=== PATIENT | male | born 1940 | race Caucasian/White ===

== ENCOUNTER → 2023-04-15 13:23 | Outpatient (BNV) | payer MEDICARE, SELFPAY | PROVIDERS: PCP Nurse Practitioner Family; Visit Provider Internal Medicine | DX: D64.9 Anemia, unspecified (principal) | CPT/HCPCS: 99203 ==

== ENCOUNTER 2023-06-23 08:32 | Outpatient (AMB) | payer MEDICARE, SELFPAY ==
[2023-06-23 08:37] VITALS: BP 160/74; PULSE 102; TEMP 36.4; O2SAT 97; BMI 35.1
--- NOTE | 2023-06-23 08:37 | MHC.OFFWIV ---
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 Patient states it is itchy and oliver also started about 4 days ago Patient Tobacco Use Status: Never used Tobacco Allergies olmesartan Allergy (Verified 06/23/23 08:37) Unknown iv contast Allergy (Uncoded 06/23/23 09:11) Rash Do you need a note to return to daycare/school/sports/work: No HPI HPI Comments History of Present Illness Details Patient presents to the walkin today with complaints of rash to torso, arms, upper thighs for last 4 days Red, itchy rash for last 4 days. has tried OTC cream without improvement Patient state last he had CT with IV contrast, rash started less than [address] Denies chest pain, shortness of breath, difficulty swallowing, swelling of lips or tongue, syncope, weakness, dizziness. Denies new medications, soap, lotions, detergent. Denies recent travel. Denies new foods. [facility] Medical History Spontaneous rupture of other tendons, right hand Type II diabetes mellitus PUD (peptic ulcer disease) Osteoarthritis Orthopnea Obesity Mixed hyperlipidemia Essential hypertension Erectile dysfunction Constipation ARF (acute renal failure) Mixed hyperlipidemia Bilateral carpal tunnel syndrome Carpal tunnel syndrome, right Cancer of prostate Left knee injury Surgical History H/O left knee surgery History of prostatectomy H/O prostatectomy Family History Brother Lung cancer Mother Diabetes Father Congestive heart failure Anginal pain Social History Household Members: None and Unknown / Unable to assess Housing: House Patient Tobacco Use Status: Never used Tobacco Current occupational status: retired Review of Systems Const All systems reviewed & are unremarkable except as noted in HPI and below Physical Exam Vital Signs: Last Vital Signs Temp 97.6 F 06/23/23 08:37 Pulse 102 H 06/23/23 08:37 BP 160/74 H 06/23/23 08:37 Pulse Ox 97 06/23/23 08:37 Oxygen Delivery Method Room Air 06/23/23 08:37 BMI result Body Mass Index 35.1 General: awake, alert, oriented. Answers questions appropriately. Fully engaged in examination. Skin: Diffuse, erythematous, macular rash noted to torso, arms, upper thighs. HEENT: Normocephalic. Hearing intact. No angioedema. Tongue midline without edema. Oral mucosa moist. Cardiac: External chest normal in appearance. +murmur Respiratory: No cough, audible wheezing or stridor. LSCTAB Abdomen: without gross distension. MS: No obvious swelling or deformities. Neurological: Oriented to person, place, time and situation. Thought process intact. No gait abnormalities appreciated. Psychiatric: Appropriate mood and affect. Good judgment and insight. Assessment & Plan Assessment & Plan (1) Allergic reaction: Code(s): T78.40XA - Allergy, unspecified, initial encounter Plan Allergic reaction to IV contrast dye administration 4 days ago Predisone 40mg po daily X 3 days. Benadryl OTC 25mg po QID as needed No angioedema, shortness of breath, chest pain, difficulty swallowing at this time, advised patient to seek emergent treatment in the ER if he develops these symptoms Follow up with pcp or at walk in if no improvement or for any new symptoms. Medications: New prednisone 40 mg (2 x 20 mg) PO DAILY 6 tabs 0RF Coding Level of Care Code New Pt Level 4 (08563) Diagnoses Allergic reaction T78.40XA
== END 2023-06-23 09:13 | disposition home or self-care (01) ==
PROVIDERS: PCP Nurse Practitioner Family; Visit Provider Registered Nurse Emergency
DX: T78.40XA Allergy, unspecified, initial encounter (principal)
CPT/HCPCS: 99204

== ENCOUNTER → 2023-09-10 10:00 | Outpatient (BNV) | payer MEDICARE, SELFPAY | PROVIDERS: PCP Nurse Practitioner Family; Visit Provider Internal Medicine Pulmonary Disease | DX: R06.2 Wheezing (principal) | CPT/HCPCS: 94060; 94727; 94729 ==

== ENCOUNTER 2023-09-10 10:14 | Outpatient (REF) | payer MEDICARE, SELFPAY ==
--- NOTE | 2023-09-10 | PFT_ITS ---
Flows: FEV1: 78 % of predicted at 1.93 L FVC: 79 % of predicted at 2.62 L FEV1/FVC: 74 % Bronchodilator response: Absent Volumes: Total lung capacity: 81 % of predicted at 4.98 L Residual volume: 89 % of predicted at 2.17 L Slow vital capacity: 80 % of predicted at 2.81 L Expiratory reserve volume: 45 % of predicted at 0.46 L Diffusion capacity: Normal Impression: No obstructive or restrictive ventilatory defect. No bronchodilator response. Decreased expiratory reserve volume suggests extrathoracic restriction likely secondary to abdominal obesity. MTDD
[2023-09-10 08:53] VITALS: PULSE 62; RESP 16; O2SAT 98
== END 2023-09-10 10:15 | disposition home or self-care (01) ==
LOC: HO.RESP 10:14
PROVIDERS: PCP Nurse Practitioner Family; Visit Provider Nurse Practitioner Family
DX: R06.2 Wheezing (principal); F17.200 Nicotine dependence, unspecified, uncomplicated
CPT/HCPCS: 94010; 94640; 94727; 94729

== ENCOUNTER 2023-09-11 09:33 | Outpatient (AMB) | payer MEDICARE, SELFPAY ==
--- NOTE | 2023-09-11 09:51 | HO.NEPHOV_ITS ---
HPI HPI Comments History of Present Illness Details 82-year-old man with a history of diabet es mellitus for more than 20 years was found to have proteinuria and hence this referral. Hakeem tells me that blood sugars have been well controlled with a recent he hemog lobin A1c of 6.5%. His blood pressure has been well controlled as well. He exercises regularly. He has lost about 50 lb over the last few years. He has a history of smoking but he has quit smoking. He had episodes of hematuria Seen by Urology and underwent cystoscopy which was unremarkable. Apparently he was told about a renal cyst. He had a CT scan with IV contrast and developed allergic reaction to the IV contrast. He had skin rash and was treated with prednisone He denies any nausea vomiting. No headache no shortness of breath no cough. No hemoptysis. No rash No polyuria polydipsia. No diarrhea constipation. All other systems were reviewed [facility] Medical History (Reviewed 06/23/23 @ 09:14 by Fabiola Becerra, [employer], [employer] MACHINE OPERATOR) Spontaneous rupture of other tendons, right hand Type II diabetes mellitus PUD (peptic ulcer disease) Osteoarthritis Orthopnea Obesity Mixed hyperlipidemia Essential hypertension Erectile dysfunction Constipation ARF (acute renal failure) Mixed hyperlipidemia Bilateral carpal tunnel syndrome Carpal tunnel syndrome, right Cancer of prostate Left knee injury Surgical History H/O left knee surgery History of prostatectomy H/O prostatectomy Family History Brother Lung cancer Mother Diabetes Father Congestive heart failure Anginal pain Social History Household Members: None and Unknown / Unable to assess Housing: House Patient Tobacco Use Status: Never used Tobacco Current occupational status: retired Vital Signs 09/11/23 09:52 Height 5 ft 6 in Weight 207 lb BMI 33.4 BP 124/54 L Blood Pressure Location Lt brachial Position Sitting Pulse 62 Pulse Source Pulse Oximeter Pulse Oximetry (%) 97 Oxygen Delivery Method Room Air Physical Exam Vital Signs: Last Vital Signs Pulse 62 09/11/23 09:52 BP 124/54 L 09/11/23 09:52 Pulse Ox 97 09/11/23 09:52 Oxygen Delivery Method Room Air 09/11/23 09:52 BMI result Body Mass Index 33.4 Const General: comfortable Nutritional Appearance: well nourished Orientation/consciousness: patient oriented x3 HEENT Head: No normal to inspection Mouth: moist mucous membranes Neck Neck: Yes supple and Yes no JVD Resp Auscultation: clear to auscultation bilaterally, no rales and rub present Cardio Jugular venous distension: no JVD Palpation: no palpable S3 and no palpable S4 Heart sounds: no rubs GI Palpation (GI): Soft to palpation and nontender Percussion: No Fluid wave present General: Yes no CVA tenderness Back/Spine/Pelvis Back: no CVA tenderness Skin General skin exam: no rashes or lesions noted Neuro General: patient oriented x3 Extrem General: No clubbing and Yes edema (Trace edema more on the left leg) Assessment & Plan Assessment & Plan (1) Proteinuria: Code(s): R80.9 - Proteinuria, unspecified Plan 82-year-old man with longstanding diabetes mellitus ,obesity and essentially normal renal function has albuminuria. Albuminuria is most likely due to underlying diabetic kidney disease. However nondiabetic causes need to be ruled out. Given the history of recent hematuria , underlying glomerular pathology should be considered. He has a history of mild anemia. Hematological workup was done recently which was unremarkable. However serum electrophoresis is not available. Blood pressure is well controlled Recommendations We will check urine protein creatinine ratio and serum electrophoresis. ( ordered) Track down renal imaging studies and urology report including cystoscopy results Continue to maintain blood pressure less than 130/80 and A1c less than 7%. Encouraged him to continue with his exercise regimen and avoid weight gain. Stay on low-sodium diet He would benefit from SGLT2 inhibitors. . Further workup will be based on the outcome of the above baseline medications I would be happy to follow him along with you. Thank you for allowing me to participate in the medical management of your patient. . Orders: Orders Protein Electrophoresis, Serum Today R80.9 - Proteinuria, unspecified Creatinine Urine Today N05.9 - Unspecified nephritic syndrome with unspecified morphologic changes, R80.9 - Proteinuria, unspecified Total Protein Urine Random Today R80.9 - Proteinuria, unspecified UA and rflx microscopic Today R80.9 - Proteinuria, unspecified Coding Level of Care Code New Pt Level 4 (56524) Diagnoses Proteinuria R80.9 Results Reviewed Results Reviewed: As of August 2023 Urine micro albumin creatinine ratio was 313. Serum creatinine 0.88 Hemoglobin 12.6 Nephrology Results: No Data to Display
[2023-09-11 09:52] VITALS: BP 124/54; PULSE 62; O2SAT 97; BMI 33.4
== END 2023-09-11 10:21 | disposition home or self-care (01) ==
PROVIDERS: PCP Nurse Practitioner Family; Referring Provider Nurse Practitioner Family; Visit Provider Internal Medicine Hypertension Specialist
DX: R80.9 Proteinuria, unspecified (principal)
CPT/HCPCS: 99204; 99214

== ENCOUNTER → 2023-09-11 09:33 | Outpatient (BNVA) | payer MEDICARE, SELFPAY | PROVIDERS: PCP Nurse Practitioner Family; Referring Provider Nurse Practitioner Family; Visit Provider Internal Medicine Hypertension Specialist | DX: R80.9 Proteinuria, unspecified (principal); N05.9 Unspecified nephritic syndrome with unspecified morphologic changes | CPT/HCPCS: 99202 ==

== ENCOUNTER 2023-10-02 09:20 | Outpatient (AMB) | payer MEDICARE, SELFPAY ==
[2023-10-02 09:52] VITALS: BP 126/60; PULSE 60; O2SAT 95; BMI 33.4
--- NOTE | 2023-10-02 09:52 | HO.NEPHOV ---
Vital Signs 10/02/23 09:52 Height 5 ft 6 in Weight 207 lb BMI 33.4 BP 126/60 Blood Pressure Location Rt brachial Position Sitting Pulse 60 Pulse Source Pulse Oximeter Pulse Oximetry (%) 95 Oxygen Delivery Method Room Air Intake Visit Reasons: Microalbuminuria/ 3 weeks fu/ LVM Electrolytic De Scaler Required: No Accompanied by: Self / Same As Patient Allergies olmesartan Allergy (Verified 10/02/23 09:58) Unknown iv contast Allergy (Uncoded 06/23/23 09:11) Rash HPI Comments Details: 82-year-old man with a history of diabetes mellitus for more than 20 years was found to have proteinuria and hence this referral. Bill tells me that blood sugars have been well controlled with a recent he hemoglobin A1c of 6.5%. His blood pressure has been well controlled as well. He exercises regularly. He has lost about 50 lb over the last few years. He has a history of smoking but he has quit smoking. He had episodes of hematuria Seen by Urology and underwent cystoscopy which was unremarkable. Apparently he was told about a renal cyst. He had a CT scan with IV contrast and developed allergic reaction to the IV contrast. He had skin rash and was treated with prednisone He denies any nausea vomiting. No headache no shortness of breath no cough. No hemoptysis. No rash No polyuria polydipsia. No diarrhea constipation. All other systems were reviewed [facility] Medical History Spontaneous rupture of other tendons, right hand Type II diabetes mellitus PUD (peptic ulcer disease) Osteoarthritis Orthopnea Obesity Mixed hyperlipidemia Essential hypertension Erectile dysfunction Constipation ARF (acute renal failure) Mixed hyperlipidemia Bilateral carpal tunnel syndrome Carpal tunnel syndrome, right Cancer of prostate Left knee injury Surgical History H/O left knee surgery History of prostatectomy H/O prostatectomy Family History Brother Lung cancer Mother Diabetes Father Congestive heart failure Anginal pain Social History Household Members: None and Unknown / Unable to assess Housing: House Patient Tobacco Use Status: Never used Tobacco Current occupational status: retired Physical Exam Vital Signs: Last Vital Signs Pulse 60 10/02/23 09:52 BP 126/60 10/02/23 09:52 Pulse Ox 95 10/02/23 09:52 Oxygen Delivery Method Room Air 10/02/23 09:52 BMI result Body Mass Index 33.4 Const General: comfortable Nutritional Appearance: well nourished Orientation/consciousness: patient oriented x3 HEENT Head: No normal to inspection Mouth: moist mucous membranes Neck Neck: Yes supple and Yes no JVD Resp Auscultation: clear to auscultation bilaterally, no rales and rub present Cardio Jugular venous distension: no JVD Palpation: no palpable S3 and no palpable S4 Heart sounds: no rubs GI Palpation (GI): Soft to palpation and nontender Percussion: No Fluid wave present General: Yes no CVA tenderness Back/Spine/Pelvis Back: no CVA tenderness Skin General skin exam: no rashes or lesions noted Neuro General: patient oriented x3 Extrem General: No clubbing and Yes edema (Trace edema more on the left leg) Results Reviewed Nephrology Results: No Data to Display Assessment & Plan Assessment & Plan (1) Proteinuria: Code(s): R80.9 - Proteinuria, unspecified Category: Medical Plan 82-year-old man with longstanding diabetes mellitus ,obesity and essentially normal renal function has albuminuria. Albuminuria is most likely due to underlying diabetic kidney disease. However nondiabetic causes need to be ruled out. Given the history of recent hematuria , underlying glomerular pathology should be considered. He has a history of mild anemia. Hematological workup was done recently which was unremarkable. However serum electrophoresis is not available. Blood pressure is well controlled urine protein creatinine ratio was 566 serum electrophoresis - NO monoclonal proteins Need to track down renal imaging studies and urology report including cystoscopy results Continue to maintain blood pressure less than 130/80 and A1c less than 7%. Encouraged him to continue with his exercise regimen and avoid weight gain. Stay on low-sodium diet He would benefit from SGLT2 inhibitors. No changes were made today . Orders: Orders Complete Blood Count Auto Diff 6 Months N18.30 - Chronic kidney disease, stage 3 unspecified Comprehensive Met. Panel 6 Months N18.9 - Chronic kidney disease, unspecified Total Protein Urine Random 6 Months Creatinine Urine 6 Months R80.9 - Proteinuria, unspecified UA and rflx microscopic 6 Months Coding Level of Care Code Est Pt Level 4 (90879) Diagnoses Proteinuria R80.9
== END 2023-10-02 10:18 | disposition home or self-care (01) ==
PROVIDERS: PCP Nurse Practitioner Family; Visit Provider Internal Medicine Hypertension Specialist
DX: R80.9 Proteinuria, unspecified (principal)
CPT/HCPCS: 99214

== ENCOUNTER → 2023-10-02 09:20 | Outpatient (BNVA) | payer MEDICARE, SELFPAY | PROVIDERS: PCP Nurse Practitioner Family; Visit Provider Internal Medicine Hypertension Specialist | DX: R80.9 Proteinuria, unspecified (principal) | CPT/HCPCS: 99212 ==

== ENCOUNTER 2024-07-26 09:13 | Outpatient (AMB) | payer MEDICARE, SELFPAY ==
[2024-07-26 09:48] VITALS: BP 140/80; PULSE 59; O2SAT 98
--- NOTE | 2024-07-26 09:48 | MHC.OFFWIV ---
Intake Vital Signs 07/26/24 09:48 Weight 212 lb BP 140/80 H Blood Pressure Location Lt brachial Position Sitting Pulse 59 Pulse Source Pulse Oximeter Pulse Oximetry (%) 98 Oxygen Delivery Method Room Air Intake Visit Reasons: EP LT leg given out loosing balance Intake Note: Patient here for weakness behind left knee that started about 3 days ago. Patient Tobacco Use Status: Never used Tobacco Allergies olmesartan Allergy (Verified 07/26/24 09:51) Unknown iv contast Allergy (Uncoded 07/26/24 09:51) Rash Do you need a note to return to daycare/school/sports/work: No HPI HPI Comments History of Present Illness Details 83 y/o male patient who presents to the walk in clinic with c/o Muscle weakness and cramping left lower extremity x 3 days. Denies injury or trauma to the joint. Pt reports the symptoms start after prolonged sitting, but go away right after he starts walking. Reports knee buckling upon standing. He has been wearing Knee brace with some improvement. He has an appointment with PCP @ [facility] in 2 weeks. [facility] Medical History Spontaneous rupture of other tendons, right hand Type II diabetes mellitus PUD (peptic ulcer disease) Osteoarthritis Orthopnea Obesity Mixed hyperlipidemia Essential hypertension Erectile dysfunction Constipation ARF (acute renal failure) Mixed hyperlipidemia Bilateral carpal tunnel syndrome Carpal tunnel syndrome, right Cancer of prostate Left knee injury Surgical History H/O left knee surgery History of prostatectomy H/O prostatectomy Family History Brother Lung cancer Mother Diabetes Father Congestive heart failure Anginal pain Social History Household Members: None and Unknown / Unable to assess Housing: House Patient Tobacco Use Status: Never used Tobacco Current occupational status: retired Review of Systems Const All systems reviewed & are unremarkable except as noted in HPI and below Physical Exam Vital Signs: Last Vital Signs Pulse 59 07/26/24 09:48 BP 140/80 H 07/26/24 09:48 Pulse Ox 98 07/26/24 09:48 Oxygen Delivery Method Room Air 02/24/25 09:48 Const General: cooperative and no acute distress Nutritional Appearance: overweight Orientation/consciousness: patient oriented x3 Neuro General: patient oriented x3 Extrem Left lower extremity: normal to inspection, full ROM, knee Details: normal to inspection and normal ROM; no tenderness and no swelling and lower leg Details: normal to inspection and no edema; no erythema, no crepitus and no deformity Assessment & Plan Assessment & Plan (1) Muscle cramping: Code(s): R25.2 - Cramp and spasm Plan: Muscle cramping left lower extremity. Advised against prolonged sitting. Advised to do stretches and exercise lower extremities. Coding Level of Care Code Est Pt Level 4 (48136) Diagnoses Muscle cramping R25.2 Time Spent (min) 20
--- OUTSIDE RECORDS SUMMARY | 2024-07-26 09:50 | XMS_ITS | Clinical Summary ---
Author Organization [facility] Address [address] [place] [address] Care Team Providers Care Direct Entry Midwife Name Role Phone Rebecca Barros Primary Care Provider [phone] Allergies No known active allergies Medications Medication Sig Dispensed Refills Start Date End Date Status albuterol 108 (90 Base) MCG/ACT inhaler INHALE ONE PUFF BY MOUTH FOUR TIMES A DAY NEEDED FOR WHEEZING 0 07/24/2020 Active amLODIPine (NORVASC) tablet 5 mg TAKE ONE TABLET BY MOUTH EVERY DAY 0 09/25/2020 Active atorvastatin (LIPITOR) tablet 20 mg Take 20 mg by mouth daily. 0 10/02/2020 Active glyBURIDE (DIABETA) 2.5 MG tablet Take 2.5 mg by mouth 2 (two) times a day. 0 09/25/2020 Active metFORMIN (GLUCOPHAGE) tablet 500 mg TAKE TWO TABLETS BY MOUTH EVERY MORNING AND TAKE TWO TABLETS BY MOUTH IN THE EVENING 0 07/27/2020 Active Active Problems Problem Noted Date Diagnosed Date Arthritis of knee, right 10/06/2020 Patellofemoral syndrome, right 10/06/2020 Family History Medical History Relation Name Comments Hypertension Father Diabetes Mother Hypertension Mother Relation Name Status Comments Father Mother Social History Tobacco Use Types Packs/Day Years Used Date Smoking Tobacco: Never Assessed Sex and Gender Information Value Date Recorded Sex Assigned at Not on file Gender Identity Not on file Sexual Orientation Not on file Job Start Date Occupation Industry Not on file Not on file Not on file Last Filed Vital Signs Vital Sign Reading Time Taken Comments Blood Pressure - - Pulse - - Temperature - - Respiratory Rate - - Oxygen Saturation - - Inhaled Oxygen Concentration - - Weight 94.8 kg (209 lb) 10/06/2020 10:35 AM EDT Height 167.6 cm (5' 6 ) 10/06/2020 10:35 AM EDT Body Mass Index 33.73 10/06/2020 10:35 AM EDT Plan of Treatment Health Maintenance Due Date Last Done Comments COVID-19 Vaccine (#1) 03/26/1941 Depression Screening 1952 BMI Counseling 09/25/1959 Preventative Health Evaluation 09/25/1959 DTap / Tdap / Td (1 - Tdap) 1960 Shingrix-Zoster Vaccine (1 of 2) 09/25/1991 Fall Risk Assessment 2006 Pneumococcal Vaccine (1 of 1 - PCV) 2006 RSV Adult > 60+ Yrs or Pregn ant (1 - 1-dose 75+ series) 2016 Influenza Vaccine (#1) 2024 Hepatitis B Vaccines Aged Out No long er eligible based on patient's age to complete this topic RSV Ped < 20 months Aged Out No longe r eligible based on patient's age to complete this topic Care Teams Direct Entry Midwife Relationship Specialty Start Date End Date Rebecca Barros PA [address] [facility] [address] PCP - General Physician Special Effects Makeup Artist 09/17/17
--- OUTSIDE RECORDS SUMMARY | 2024-07-26 09:50 | XMS_ITS | Clinical Summary ---
Author Organization [address] [place] [address] [place] [phone] Phone Care Team Providers Care Nurse [facility] Name Role Phone Hema Kelly Primary Care Provider [phone] Allergies Active Allergy Reactions Criticality Noted Date Comments Iodinated Contrast Media 08/06/2023 Olmesartan 06/12/2021 Medications albuterol HFA (PROAIR HFA ; PROVENTIL HFA ; VENTOLIN HFA) 90 mcg/actuation inhaler INHALE ONE PUFF BY MOUTH FOUR TIMES A DAY NEEDED FOR WHEEZING 1 Active atorvastatin (LIPITOR) 20 mg tablet Take 20 mg by mouth. 1 Active glyBURIDE (DIABETA) 2.5 mg tablet Take 2.5 mg by mouth. 1 Active lisinopriL (PRINIVIL,ZESTRIL ) 5 mg tablet Take 5 mg by mouth. 1 Active metFORMIN (GLUCOPHAGE) 500 mg tablet TAKE TWO TABLETS BY MOUTH EVERY MORNING AND TAKE TWO TABLETS BY MOUTH IN THE EVENING 1 Active multivit-min/iron /folic acid/K (ADULTS MULTIVITAMIN ORAL) Multiple Vitamins-Mine rals (Multivitamin Adult) Chew Tab Take by mouth. Active Xarelto 20 mg tablet TAKE 1 TABLET BY MOUTH IN THE EVENING 90 tablet 3 5 Active metoprolol tartrate (LOPRESSOR) 25 mg tablet Take 0.5 tablets (12.5 mg total) by mouth 2 (two) times a day. 90 tablet 3 5 Active Active Problems Problem Noted Date Diagnosed Date Nonischemic cardiomyopathy 01/01/2023 Overview (05/13/2024): - Likely tachycardia mediated - Had an EF of 40 to 45% while in atrial flutter which completely recovered on most recent echocardiogram in sinus rhythm Assessment & Plan (05/13/2024 3:02 PM EST): Euvolemic on exam, recovery of ejection fraction on most recent echo, continue low-dose metoprolol and lisinopril at current dose Typical atrial flutter 01/01/2023 Overview (05/13/2024): - Status post cardioversion procedure in November 2022 for symptomatic atrial flutter with rapid ventricular response rate from which he appears to have maintained sinus rhythm - Currently on Xarelto for CVA prophylaxis and rate control only Assessment & Plan (05/13/2024 3:02 PM EST): Remains in sinus rhythm, continue Xarelto for CVA prophylaxis, on low-dose metoprolol for rate control Orders: ECG 12 lead Nonrheumatic aortic valve stenosis 10/25/2022 Overview (05/13/2024): - Most recent echocardiogram on 02/06/2024 showing normal biventricular size and systolic function, sigmoid septum-a benign variant, normal left ventricular regional wall motion with an ejection fraction of 55 to 60%, mild left atrial enlargement, moderate aortic stenosis with dimensionless index of 0.26 and calculated aortic valve area of 1.2 cm?? with mean gradient 21 mmHg assuming LVOT diameter of 2.4 cm, mild pulmonary hypertension with RV systolic pressure 42 mmHg-unchanged from prior in March 2023 Assessment & Plan (05/13/2024 3:02 PM EST): Valve does not sound more than moderately stenotic today on exam and he is euvolemic on exam without progressive cardiac symptoms. Continue yearly surveillance echocardiograms. Reviewed more recent echocardiogram with him in detail and was able to answer his questions to his satisfaction. I have given him some literature about TAVR procedure at his request for him to review. Arthritis, wrist 12/15/2021 Carpal tunnel syndrome on both sides 12/14/2021 Erectile dysfunction 12/14/2021 Mixed hyperlipidemia 12/14/2021 Overview (04/08/2024): Last Assessment & Plan: Continue current atorvastatin 20 mg at bedtime Assessment & Plan (05/13/2024 3:02 PM EST): Continue current atorvastatin 20 mg at bedtime Nephropathy, diabetic 12/14/2021 Obesity 12/14/2021 Osteoarthritis 12/14/2021 PUD (peptic ulcer disease) 12/14/2021 Proteinuria 06/12/2021 Essential hypertension 06/11/2021 Assessment & Plan (05/13/2024 3:02 PM EST): Technically still in stage I hypertension range even assuming that his normal blood pressure runs in the 130s over 70s-which it has on prior appointments. At this point, I recommended more stringent lifestyle changes including cutting back on alcohol and watching labels and trying to stick to a less than 1500 mg sodium diet per day. He will keep this in mind. Type 2 diabetes mellitus 06/11/2021 Malignant neoplasm of prostate 01/22/2013 Overview (04/08/2024): prostatectomy 03/14 Encounters Date Type Department Care Team Description 06/24/2024 Telephone [facility] Cardiology [facility] [address] [facility] [address] [place] [phone] Cecilia Funes MD 06/08/2024 Telephone [facility] Cardiology [facility] [address] [facility] [address] [place] [phone] Cecilia Funes MD medication Coq-10 (medication Coq-10) 06/07/2024 Telephone [facility] Cardiology [facility] [address] [facility] [address] [place] [phone] Cecilia Funes MD Med Refill 05/13/2024 10:50 AM EST Office Visit [facility] Cardiology [facility] [address] [facility] [address] [place] [phone] Cecilia Funes MD Nonrheumatic aortic valve stenosis (Primary Dx); Typical atrial flutter (CMS/HCC); Nonischemic cardiomyopathy (CMS/HCC); Essential hypertension; Mixed hyperlipidemia from Last 3 Months Surgical History Surgery Date Site/Laterality Comments OTHER SURGICAL HISTORY Right PROCEDURE: HISTORY OTHER; COMMENT: quadriceps tendon rupture Medical History Medical History Date Comments Essential hypertension DX:Essent ial hypertension Hyperlipidemia DX:Hyperlipidemi a Diabetes mellitus type 2, co ntrolled, with complications (CMS/HCC) DX:Diabetes mellitus type 2, controlled, with complications (HCC) Asthma DX:Asthma Cancer of prostate (CMS/HCC) DX: Cancer of prostate (HCC) Carpal tunnel syndrome on right DX:Carpal tunnel syndrome on right Carpal tunnel syndrome, bilateral DX:Carpal tunnel syndrome, bilateral Constipation DX:Constipation ED (erectile dysfunction) DX:ED (erectile dysfunction) Essential (primary) hypertension DX:Essential (primary) hypertension Obesity (BMI 30.0-34.9) DX:Obesi ty (BMI 30.0-34.9) Orthopnea DX:Orthopnea Osteoarthritis DX:Osteoarthriti s PUD (peptic ulcer disease) DX:PU D (peptic ulcer disease) Type 2 diabetes mellitus (CMS/HCC) DX:Type 2 diabetes mellitus (HCC); COMMENT: controlled wound infection ARF (acute renal failure) (CMS/HCC) DX:ARF (acute renal failure) ([facility]) Family History Medical History Relation Name Comments Heart failure Brother in his mid 70s Heart failure Father Other: diabetes mellitus type 2 Mother Relation Name Status Comments Brother Alive Father Mother Social History Tobacco Use Types Packs/Day Years Used Date Smoking Tobacco: Former Smokeless Tobacco: Never Alcohol Use Standard Drinks/Week Comments Yes 1 (1 standard drink = 0.6 oz pur e alcohol) Sex and Gender Information Value Date Recorded Sex Assigned at Not on file Legal Sex Male 2:45 AM EST Gender Identity Not on file Sexual Orientation Not on file Obstetrics History Last Filed Vital Signs Vital Sign Reading Time Taken Comments Blood Pressure 142/70 05/13/2024 10:12 AM EST Pulse 53 05/13/2024 10:12 AM EST Temperature - - Respiratory Rate - - Oxygen Saturation 97% 05/13/2024 10:12 AM EST Inhaled Oxygen Concentration - - Weight 97.1 kg (214 lb) 05/13/2024 10:12 AM EST Height 167.6 cm (5' 6 ) 05/13/2024 10:12 AM EST Body Mass Index 34.54 05/13/2024 10:12 AM EST Plan of Treatment Health Maintenance Due Date Last Done Comments Diabetes: Annual GFR (Glomerular Filtration Rate) 1941 Diabetes: Annual Foot Exam 09/25/1950 Diabetes: Annual Retina Eye Exam 09/25/1950 Cholesterol Screening (Lipid Panel) 05/12/2022 Depression Screening 05/12/2022 Falls Risk Assessment 05/12/2022 Medicare Annual Wellness Visit 05/12/2022 Social Influencers of Health Screening 05/12/2022 Diabetes: Annual Urine Albumin-Creatinine Ratio (uACR) 05/18/2022 Hypertension/CHF/CAD Annual BMP Blood Test 05/18/2022 Diabetes: Blood Sugar Control Test (HGBA1C) 08/12/2022 02/12/2022 DTaP,Tdap,and Td Vaccines (4 - Td or Tdap) 01/08/2031 01/08/2021, 11/08/2010, 01/07/2001 Zoster Vaccines Completed 04/12/2018, 01/02, 06/28/2009 Pneumococcal Vaccine: 50+ Years Completed 02/25/2023, 02/28/2017, 04/10/2006, Additional history exists COVID-19 Vaccine Completed 03/01/2024, , 02/18/2022, Additional history exists Influenza Vaccine Completed 03/01/2024, , 02/18/2022, Additional history exists RSV Immunization Patients 60+ Years Old Completed 03/01/2024 HIB Vaccines Aged Out No longer eligi ble based on patient's age to complete this topic HPV Vaccines Aged Out No longer eligi ble based on patient's age to complete this topic Hepatitis A Vaccines Aged Out No long er eligible based on patient's age to complete this topic Hepatitis B Vaccines Aged Out No long er eligible based on patient's age to complete this topic IPV Vaccines Aged Out No longer eligi ble based on patient's age to complete this topic MMR Vaccines Aged Out No longer eligi ble based on patient's age to complete this topic Meningococcal ACWY Vaccine Aged Out N o longer eligible based on patient's age to complete this topic Meningococcal B Vacine Aged Out No lo nger eligible based on patient's age to complete this topic RSV Immunization Patients Under 20 months Aged Out No longer eligible based on patient's age to complete this topic Varicella Vaccines Aged Out No longer eligible based on patient's age to complete this topic Procedures Procedure Name Priority Date/Time Associated Diagnosis Comments ECG 12-LEAD Routine 05/13/2024 10:16 AM EST Typical atrial flutter (CMS/HCC) from Last 3 Months Results * ECG 12 lead (05/13/2024 10:16 AM EST) Ventricular Rate ECG 53 BPM GEMUSE Atrial Rate 53 BPM GEMUSE P-R Interval 224 ms GEMUSE QRS Duration 122 ms GEMUSE Q-T Interval 430 ms GEMUSE QTc 403 ms GEMUSE P Wave [place] 42 degrees GEMUSE R [place] 3 degrees GEMUSE T [place] 12 degrees GEMUSE ECG Interpretation Sinus bradycardia with 1st degree A-V block Right bundle branch block Abnormal ECG When compared with ECG of 05-DEC-2022 08:27, [place] type 1 av block is no longer present Right bundle branch block is now Present Confirmed by CECILIA FUNES ([id number]) on 05/14/2024 2:44:40 PM GEMUSE 05/13/2024 10:1 6 AM EST 05/14/2024 2:44 PM EST us Cecilia Funes MD ECG ORDERABLES Final Result GEMUSE from Last 3 Months Insurance [facility] [address] [id number] [place] [phone] Advance Directives Documents on File Type Date Recorded 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
--- OUTSIDE RECORDS SUMMARY | 2024-07-26 09:50 | XMS_ITS | Encounter Summary ---
Author Organization [facility] Address [address] [place] [address] Care Team Providers Care Larriman Name Role Phone Hema Kelly DO Primary Care Provider [phone] Reason for Visit * Reason Comments Follow-up Encounter Details Date Type Department Care Team (Late st Contact Info) Description 05/13/2024 10:50 AM EST Office Visit [facility] [address] [facility] [address] [place] [id number] Cecilia Funes MD [address] [place] [address] Nonrheumatic aortic valve stenosis (Primary Dx); Typical atrial flutter (CMS/HCC); Nonischemic cardiomyopathy (CMS/HCC); Essential hypertension; Mixed hyperlipidemia Social History Tobacco Use Types Packs/Day Years Used Date Smoking Tobacco: Former Smokeless Tobacco: Never Alcohol Use Standard Drinks/Week Comments Yes 1 (1 standard drink = 0.6 oz pur e alcohol) Sex and Gender Information Value Date Recorded Sex Assigned at Not on file Legal Sex Male 2:45 AM EST Gender Identity Not on file Sexual Orientation Not on file documented as of this encounter Last Filed Vital Signs Vital Sign Reading [...] Mass Index 34.54 05/13/2024 10:12 AM EST documented in this encounter Progress Notes * Cecilia Funes MD - 05/13/2024 10:50 AM ESTAssociated Problem(s): Typical atrial flutter (CMS/HCC) Remains in sinus rhythm, continue Xarelto for CVA prophylaxis, on low-dose metoprolol for rate control Orders: ECG 12 lead * Cecilia Funes MD - 05/13/2024 10:50 AM ESTAssociated Problem(s): Nonrheumatic aortic valve stenosis Valve does not sound more than moderately stenotic today on exam and he is euvolemic on exam without progressive cardiac symptoms. Continue yearly surveillance echocardiograms. Reviewed more recent echocardiogram with him in detail and was able to answer his questions to his satisfaction. I have given him some literature about TAVR procedure at his request for him to review. * Cecilia Funes MD - 05/13/2024 10:50 AM ESTAssociated Problem(s): Nonischemic cardiomyopathy (CMS/HCC) Euvolemic on exam, recovery of ejection fraction on most recent echo, continue low-dose metoprolol and lisinopril at current dose * Cecilia Funes MD - 05/13/2024 10:50 AM ESTAssociated Problem(s): Essential hypertension Technically still in stage I hypertension range even assuming that his normal blood pressure runs in the 130s over 70s-which it has on prior appointments. At this point, I recommended more stringent lifestyle changes including cutting back on alcohol and watching labels and trying to stick to a less than 1500 mg sodium diet per day. He will keep this in mind. * Cecilia Funes MD - 05/13/2024 10:50 AM ESTAssociated Problem(s): Mixed hyperlipidemia Continue current atorvastatin 20 mg at bedtime * Cecilia Funes MD - 05/13/2024 10:50 AM EST HPI: Anastacio Hannon is a 83 y.o. male who presents for cardiac follow up of: 1. Aortic stenosis 2. Paroxysmal atrial flutter 3. Cardiomyopathy-likely tachycardia induced 4. Hypertension 5. Hyperlipidemia He also has a history of peptic ulcer disease, diabetes, arthritis among other things. He presents today for routine follow-up. Since his last visit, he has been doing pretty well from a cardiac standpoint. He had a significant weight loss through dietary means a few years ago. He has been maintaining this weight. He denies chest pain, dyspnea on exertion, lightheadedness, syncope, palpitations. He denies any recent major bleeding or bruising. He has not had any recent hospitalizations or visits to the ER. He exercises 5 days a week for about an hour. He does 30 minutes of cardio using a machine that allows him to cycle his arms and pedal his legs while sitting recumbent. He denies any chest pain or shortness of breath with this. He then does 30 minutes of weight training. He does mentionthat at night sometimes he will have a 5 to 6 ounce glass of wine to help with sleep. He does this may be 4 to 5 days a week. ACTIVE MEDICATIONS: Outpatient Medications Marked as Taking for the 05/13/24 encounter (Office Visit) with Cecilia Funes MD Medication Sig Dispense Refill albuterol HFA (PROAIR HFA ; PROVENTIL HFA ; VENTOLIN HFA) 90 mcg/actuation inhaler INHALE ONE PUFF BY MOUTH FOUR TIMES A DAY NEEDED FOR WHEEZING atorvastatin (LIPITOR) 20 mg tablet Take 20 mg by mouth. glyBURIDE (DIABETA) 2.5 mg tablet Take 2.5 mg by mouth. lisinopriL (PRINIVIL,ZESTRIL) 5 mg tablet Take 5 mg by mouth. metFORMIN (GLUCOPHAGE) 500 mg tablet TAKE TWO TABLETS BY MOUTH EVERY MORNING AND TAKE TWO TABLETS BY MOUTH IN THE EVENING metoprolol tartrate (LOPRESSOR) 25 mg tablet Take 0.5 Tablets by mouth 2 times daily. multivit-min/iron/folic acid/K (ADULTS MULTIVITAMIN ORAL) Multiple Vitamins- Minerals (Multivitamin Adult) Chew Tab Take by mouth. rivaroxaban (XARELTO) 20 mg tablet Take 1 Tablet by mouth every evening. PAST MEDICAL HISTORY: Patient Active Problem List Diagnosis Date Noted Date Diagnosed Nonischemic cardiomyopathy ([facility]) 01/01/2023 - Had an EF of 40 to 45% while in atrial flutter which completely recovered on most recent echocardiogram in sinus rhythm Last Assessment & Plan: Euvolemic on exam, recovery of ejection fraction on most recent echo, continue low-dose metoprolol and lisinopril at current dose Typical atrial flutter ([facility]) 01/01/2023 - Status post cardioversion procedure in November 2022 for symptomatic atrial flutter with rapid ventricular response rate from which he appears to have maintained sinus rhythm - Currently on Xarelto for CVA prophylaxis and rate control only Last Assessment & Plan: Remains in sinus rhythm, continue Xarelto for CVA prophylaxis, on low-dose metoprolol for rate control Nonrheumatic aortic valve stenosis 10/25/2022 - Most recent echocardiogram from 03/18/2023 showing moderate, concentric left ventricular hypertrophy with normal cavity size and systolic function, normal regional wall motion with an ejection fraction of 55 to 60%, grade 2 diastolic dysfunction consistent with increased left atrial pressure, normal RV size and systolic function, moderate aortic stenosis with dimensionless index of 0.28 and calculated aortic valve area of 0.95 cm?? assuming an LVOT diameter of 2.1, normal pulmonary artery systolic pressure, mildly dilated ascending aorta at 3.9 cm-unchanged from September 2022 Last Assessment & Plan: Valve does not sound more than moderately stenotic today on exam and he is euvolemic on exam without progressive cardiac symptoms. Continue yearly surveillance echocardiograms-he will be due for 1 inOctober of this year. I have ordered this. I will plan to see him afterwards. Today, I reviewed the pathophysiology, natural progression, and treatment options for aortic stenosis. I reviewed that there are no medications proven to slow progression or reverse course of this disease. Ultimately, thetreatment of severe, symptomatic aortic stenosis to prevent significant morbidity and mortality is valve replacement. However, I also reviewed that there are several options nowadays. There is traditional surgical valve replacement and also transcatheter aortic valve replacement-the latter of whichhas a significantly shorter recovery time Arthritis, wrist 12/15/2021 Carpal tunnel syndrome on both sides 12/14/2021 Erectile dysfunction 12/14/2021 Mixed hyperlipidemia 12/14/2021 Last Assessment & Plan: Continue current atorvastatin 20 mg at bedtime Nephropathy, diabetic ([facility]) 12/14/2021 Obesity 12/14/2021 Osteoarthritis 12/14/2021 PUD (peptic ulcer disease) 12/14/2021 Proteinuria 06/12/2021 Essential hypertension 06/11/2021 Last Assessment & Plan: Slightly elevated today but better controlled on prior visits, have not made changes today, continue to monitor on future visits and at home periodically, continue low-dose metoprolol and lisinopril at current dose for now Type 2 diabetes mellitus ([facility]) 06/11/2021 Malignant neoplasm of prostate ([facility]) 01/22/2013 prostatectomy 03/14 Resolved Problems No resolved problems to display. ALLERGIES: Allergies Allergen Reactions Iodinated Contrast Media Olmesartan FAMILY HISTORY: Family History Problem Relation Name Age of Onset Other (Other: diabetes mellitus type 2) Mother Heart failure Father Lung cancer Brother SOCIAL HISTORY: Social History Tobacco Use Smoking status: Former Smokeless tobacco: Never Substance Use Topics Alcohol use: Yes Alcohol/week: 1.0 standard drink of alcohol PHYSICAL EXAM: Vitals: 05/13/24 1012 BP: (!) 142/70 BP Location: Left arm Patient Position: Sitting BP Cuff Size: Adult Pulse: 53 SpO2: 97% Weight: 97.1 kg (214 lb) Height: 1.676 m (66 ) Body mass index is 34.54 kg/m??. APPEARANCE: Alert and in no acute distress EYES: PERRL, conjunctiva and sclera normal NECK: Neck supple, 2+ carotid pulses, normal upstroke HEART: RRR with normal S1 and S2, 3 out of 6 crescendo decrescendo high-pitched systolic murmur butwith clear auscultation of S2, no gallops, no JVD appreciated LUNG: clear to auscultation EXTREMITIES: Extremities warm and well perfused without edema, 2+ peripheral pulses bilaterally NEURO: Awake, alert and oriented x 3, Cranial nerves II-XII grossly intact SKIN: Skin color, texture, turgor normal. No rashes or lesions. PSYCH: Mood and affect are appopriate. MSK: Moves all extremities, gait is normal EKG 05/13/24: Sinus bradycardia at 53 beats a minute, first-degree AV block, right bundle branch block TESTING: No recent labs for my review-we will try to get from PCP ASSESSMENT/PLAN: Anastacio Hannon is an 83-year-old gentleman who presents for cardiac follow-up of the below mentioned issues. All in all he is doing well from a cardiac standpoint. He has no signs or symptoms of valve progression which I reviewed further with him in detail. He has no evidence of heart failure or angina. Please see problem specific recommendations below. I will plan to see him again in 6 months. Assessment & Plan Typical atrial flutter (CMS/HCC) Remains in sinus rhythm, continue Xarelto for CVA prophylaxis, on low-dose metoprolol for rate control Orders: ECG 12 lead Nonrheumatic aortic valve stenosis Valve does not sound more than moderately stenotic today on exam and he is euvolemic on exam without progressive cardiac symptoms. Continue yearly surveillance echocardiograms. Reviewed more recent echocardiogram with him in detail and was able to answer his questions to his satisfaction. I have given him some literature about TAVR procedure at his request for him to review. Nonischemic cardiomyopathy (CMS/HCC) Euvolemic on exam, recovery of ejection fraction on most recent echo, continue low-dose metoprolol and lisinopril at current dose Essential hypertension Technically still in stage I hypertension range even assuming that his normal blood pressure runs in the 130s over 70s-which it has on prior appointments. At this point, I recommended more stringent lifestyle changes including cutting back on alcohol and watching labels and trying to stick to a less than 1500 mg sodium diet per day. He will keep this in mind. Mixed hyperlipidemia Continue current atorvastatin 20 mg at bedtime The [facility] team will continue to co-manage this patient following the plan of care as established by my initial visit and as per AHA guidelines for ongoing management and surveillance of aortic stenosis, atrial flutter, hypertension, hyperlipidemia, cardiomyopathy . This will include medication titration, initiation of appropriate medications and further titration, and diagnostic studies to manage this disease process. This note was dictated using voice recognition software. Please pardon any grammatical or syntax errors. documented in this encounter Plan of Treatment Not on file documented as of this encounter Procedures Procedure Name Priority Date/Time Associated Diagnosis Comments ECG 12-LEAD Routine 05/13/2024 10:16 AM EST Typical atrial flutter (CMS/HCC) documented in this encounter Results * ECG 12 lead (05/13/2024 10:16 AM EST) Ventricular Rate ECG 53 BPM GEMUSE Atrial Rate 53 BPM GEMUSE P-R Interval 224 ms GEMUSE QRS Duration 122 ms GEMUSE Q-T Interval 430 ms GEMUSE QTc 403 ms GEMUSE P Wave Dierks 42 degrees GEMUSE R Dierks 3 degrees GEMUSE T Dierks 12 degrees GEMUSE ECG Interpretation Sinus bradycardia [...] Funes MD ECG ORDERABLES Final Result GEMUSE documented in this encounter Visit Diagnoses Diagnosis Nonrheumatic aortic valve stenosis- Primary Typical atrial flutter (CMS/HCC) Nonischemic cardiomyopathy (CMS/HCC) Other primary cardiomyopathies Essential hypertension Unspecified essential hypertension Mixed hyperlipidemia documented in this encounter Discontinued Medications Medication Sig Discontinue Reason Start Date End Da te cholecalciferol (VITAMIN D-3) 25 mcg (1,000 unit) capsule Take 1 Capsule by mouth. Prescriber Discontinued 05/13/2024 documented as of this encounter Care Teams Larriman Relationship Specialty Start Date End Date [facility] [place] [place] P[facility] - General Family Medicine 06/08/24 documented as of this encounter
--- OUTSIDE RECORDS SUMMARY | 2024-07-26 09:50 | XMS_ITS | Clinical Summary ---
Author Organization [facility], Address [address] [facility] [address] [facility] [place] [address] Phone Care Team Providers Care Substation Maintenance Technician Name Role Phone Andriy Sherman MD Primary Care Provider [phone] Allergies Active Allergy Reactions Criticality Noted Date Comments Olmesartan 06/12/2021 Medications atorvastatin (LIPITOR) 20 MG tablet Take 20 mg by mouth 1 (one) time each day 04/05/2021 Active metFORMIN (GLUCOPHAGE) 500 MG tablet TAKE TWO TABLETS BY MOUTH EVERY MORNING AND TAKE TWO TABLETS BY MOUTH IN THE EVENING 05/09/2021 Active glyBURIDE (DIABETA) 2.5 MG tablet Take 2.5 mg by mouth 2 (two) times a day 03/22/2021 Active lisinopril 5 MG tablet Take 5 mg by mouth 1 (one) time each day 03/24/2021 Active cholecalciferol (VITAMIN D-3) 25 MCG (1000 UT) capsule Take 1 capsule by mouth 1 (one) time each day Active aspirin (ST WISAM) 81 MG EC tablet Take 1 tablet by mouth 1 (one) time each day Active amLODIPine (NORVASC) 5 MG tablet Take 1 tablet by mouth 1 (one) time each day Active Active Problems Problem Noted Date Diagnosed Date Essential (primary) hypertension 06/12/2021 Proteinuria 06/12/2021 Type 2 diabetes mellitus 06/11/2021 Essential hypertension 06/11/2021 Family History Medical History Relation Comments Diabetes Father Diabetes Sibling Relation Status Comments Father Sibling Social History Tobacco Use Types Packs/Day Years Used Date Smoking Tobacco: Former Cigarettes Q uit: 03/11/1998 Sex and Gender Information Value Date Recorded Sex Assigned at Not on file Legal Sex Male 4:53 PM EST Gender Identity Not on file Sexual Orientation Not on file Plan of Treatment Health Maintenance Due Date Last Done Comments Pneumococcal Vaccine: 65+ Years (3 of 3 - PCV) 02/28/2018 02/28/2017, 04/10/2006, 02/07/2001 Diabetes: Ophthalmology Exam 07/03/2020 Diabetes: Pedal Pulse Checked 07/03/2020 Diabetes: Sensory Foot Exam 07/03/2020 Diabetes: Visual Foot Exam 07/03/2020 Diabetes: Hemoglobin A1C 05/14/2022 02/12/2022, 06/02 Influenza Vaccine (#1) 2024 , 03/11/2019, 03/01/2019, Additional history exists Hepatitis B Vaccine Aged Out No longe r eligible based on patient's age to complete this topic Procedures Procedure Name Priority Date/Time Associated Diagnosis Comments HEMOGLOBIN A1C Routine 02/12/2022 7:39 AM EDT 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 DIAGNOSTIC USE: ??The [place] Diabetes Association (ADA) and the World Health Organization (WHO) recommend the use of HbA1c to diagnose diabetes using a threshold of 6.5%. Patients who have an HbA1c between 5.7% and 6.4% are considered at increased risk for developing diabetes in the future. CAUTION: Falsely low HbA1c results may be observed in patients with hemolytic anemia, homozygous forms of abnormal hemoglobin (e.g. SS, CC, SC), , recent blood loss or hemoglobin F greater than 7%. Fructosamine may be used as an alternate test in these cases. REFERENCE: ADA: Standards of Medical Care in Diabetes 2020, The Journal of Clinical and Applied Research and Education Volume 43, Supplement 1 Testing performed or reported by [facility] [place], a Service of [facility], [address] [place] [id number] Kathrine Pan MD, Manager Office Services [facility]# [id number] Blood (Blood, Venous) 02/12/2022 7:39 AM EDT 02/12/2022 9:53 AM EDT us Moustapha Levine MD LAB BLOOD ORDERABLES Final Resul t [facility] from Last 3 Months or Most Recently Relevant to Health Maintenance Insurance [place] [facility] [place] [address] [place] [address] Care Teams Substation Maintenance Technician Relationship Specialty Start Date End Date Andriy Sherman MD [facility] [address] [place] [id number] PCP - General Family Medicine 03/02/21
--- OUTSIDE RECORDS SUMMARY | 2024-07-26 09:50 | XMS_ITS ---
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 Name Role Phone Kelly Hema Primary Care Provider Martha Berman [phone] REASON FOR VISIT pcp appt on august 09 Encounters Encounter Location Date Provider Diagnosis [address] [facility] [address] 07/16/2024 Martha Hernandez Plan Of Treatment Next Appt Details Provider Name:Martha Hernandez , 10/12/2024 02:30:00 PM, [facility] [address], [place], [address], Progress Notes * Anastacio MEDRANO FDOB:1940 (83 yo M)Acc No.[id number]:07/16/2024 Patient:?Anastacio MEDRANO :1940???Age:83 Y???Sex:Male Address:[address] [place] [address] [place], [address] * * Date:?
== END 2024-07-26 10:18 | disposition home or self-care (01) ==
PROVIDERS: Visit Provider Nurse Practitioner Family
DX: R25.2 Cramp and spasm (principal)

== ENCOUNTER → 2024-07-26 09:13 | Outpatient (BNVA) | payer MEDICARE, SELFPAY | DX: R25.2 Cramp and spasm (principal) | CPT/HCPCS: 99212 ==

== ENCOUNTER 2025-01-17 09:33 | Outpatient (AMB) | payer MEDICARE, SELFPAY ==
--- OUTSIDE RECORDS SUMMARY | 2025-01-12 09:00 | XMS_ITS ---
Author Organization [facility] Address [address] [place] [address] Care Team Providers Care Jewel Stripper Name Role Phone Kelly Hema Primary Care Provider MelyMartha Ortiz Unavailable [phone] Allergies Allergen (clinical drug ingredient) Drug/Non Drug Allergy documented on EMR Reaction Allergy Type Onset Date Status Iodinated contrast media (substance) Iodinated Diagnostic Agents Unknown Drug Allergy Active REASON FOR VISIT At Risk Footcare, Skin Problem, Toe Irritation Medications Medication SIG (Take, Route, Frequency, Duration) Notes Start Date End Date Status zzzExtra Depth Orthopedic Shoes (1 Pair) with Customized Heat Molded Multidensity Innersoles (3 Pair) . . . Dx: NIDDM/Polyneuropathy (E11.42), Hammertoe Foot Deformity (M20.41,M20.42), Preulcerative Skin Lesion(s) (L85.1); Duration: . 07/28/2015 Not-Taking Lisinopril 10 MG 1 tablet Orally Once a day; Duration: 30 day(s) Not-Taking amLODIPine Besylate 5 MG 1 tablet Orally Once a day Not-Taking Extra-Depth Diabetic Shoes with 3 Pair Custom heat-molded multi-density innersoles . for 1 year . Dx:hallux limitus and hammertoes; Duration: . 04/21/2014 Not-Taking Loprox Not-Taking Metoprolol Tartrate 25 MG Oral; Duration: 90 Days Active Hydrocortisone 2.5 % as directed Externa lly to feet Twice a day; Duration: 30 days PRN Active Voltaren 1 % as directed Externally 01/30/2024 Active Clotrimazole-Betamethason e 1-0.05 % 1 application Externally Twice a day; Duration: 30 days 02/01/2022 Not-Taking Extra Depth Orthopedic Shoes (1 Pair) with Customized Heat Molded Multidensity Innersoles (3 Pair) as directed Dx: NIDDM/Polyneuropathy (E11.42), Hammertoe Foot Deformity (M20.41,M20.42), Preulcerative Skin Lesion(s) (L85.1 06/11/2018 Not-Taking Metformin & Diet Manage Prod Active glyBURIDE 2.5 MG Orally Act clive Diabetic Insoles Act clive Lisinopril Active Xarelto Active Clotrimazole-Betamethason e 1-0.05 % 1 application Externally Twice a day; Duration: 30 days Active Atorvastatin Calcium Active Social History Tobacco Use: Social History Observation Description Date Details (start date - stop date) Never Smoker NA - NA Tobacco use other than smoking: Question Answer Notes Are you an other tobacco user? No Tobacco Control (Standard) Question Answer Notes Tobacco use: Nonsmoker Additional Findings: Tobacco non-user Current no nsmoker AUDIT-C (Standard) Question Answer Notes Did you have a drink contain ing alcohol in the past year? Yes How often did you have a dri nk containing alcohol in the past year? Monthly or less (1 point) How many drinks did you have on a typical day when you were drinking in the past year? 1 or 2 drinks (0 point) How often did you have six o r more drinks on one occasion in the past year? Less than monthly (1 point) Points 2 Interpretation Negative Problems Problem Type SNOMED Code ICD Code Onset Dates Problem Status W/U Status Risk Notes Problem Acquired hammer toe of right foot (9079648288411 105) Other hammer toe(s) (acquired), right foot (M20.41) Active confirmed Problem Acquired hammer toe of left foot (5391353993387 103) Other hammer toe(s) (acquired), left foot (M20.42) Active confirmed Vital Signs Height 5 ft 6 in in 01/12/2025 Weight 210 lbs 01/12/2025 BMI 33.89 kg/m2 01/12/2025 Blood pressure systolic 121 mm Hg 01/13/20 25 Blood pressure diastolic 80 mm Hg 08/13/2 025 Procedures Procedure Date Ordered Date Performed Result Body Sit e 00198-NQUCNRP NAIL, 6 OR MORE 01/12/2025 N/A 13095-ZMKK SKIN LESIONS, OVER 4 01/12/2025 N/A Encounters Encounter Location Date Provider Diagnosis [facility] [address] [place] [address] 01/12/2025 Martha Hernandez Type 2 diabetes teresa itus with diabetic polyneuropathy E11.42 ; Other hammer toe(s) (acquired), right foot M20.41 ; Tinea unguium B35.1 ; Tinea pedis of both feet B35.3 and Other hammer toe(s) (acquired), left foot M20.42 Assessments Encounter Date Diagnosis (ICD Code) Assessment Notes Treatment Notes Treatment Clinical Notes Section Notes 01/12/2025 Type 2 diabetes mellitus with diabetic polyneuropathy (ICD-10 - E11.42) 01/12/2025 Other hammer toe(s) (acquired), right foot (ICD-10 - M20.41) Patient Educated with: DIABETIC FOOT CARE INSTRUCTIONS. pdf (DIABETIC FOOT CARE INSTRUCTIONS. pdf) 01/12/2025 Tinea unguium (ICD-10 - B35.1) 01/12/2025 Tinea pedis of both feet (ICD-10 - B35.3) 01/12/2025 Other hammer toe(s) (acquired), left foot (ICD-10 - M20.42) Plan Of Treatment Medication Medication Name Sig Start Date Stop Date Notes Clotrimazole-Betamethasone 1-0.05 % 1 application Externally Twice a day; Duration: 30 days Treatment Notes Assessment Notes Other hammer toe(s) (acquired), right fo ot Patient Educated with: DIABETIC FOOT CARE INSTRUCTIONS.pdf (DIABETIC FOOT CARE INSTRUCTIONS.pdf) Pending Test Test Name Order Date 16222-PTKMDGU NAIL, 6 OR MORE 01/12/2025 60527-AZOE SKIN LESIONS, OVER 4 01/13/20 25 Next Appt Details Follow Up: prn, Reason: Provider Name:Martha Hernandez , 04/20/2025 09:15:00 AM, [address], [place], [address], Procedure Notes * Category Sub-Category Detail Notes Debride Nail 6-10 Nail debridement Due to the cl inical pathology outlined in the exam findings, performance of this nail treatment is medically necessary as its management by an unskilled/untrained nonprofessional would put this patients foot and overall health at risk. Therefore, debridement to affected nail(s), as described in exam ( T1, T2, T3, T4, T6, T7, T8, T9, ), was performed exclusively by the physician of record to reduce/remove overall nail length, girth, thickness, subungual debris, and necrotic tissue, by manual and/or electrical means through the use of a nail nipper and/or dremel-type cutter grinder operator, to a more viable healthy nail plate or bed tissue 6-10 nails in total. Silver nitrate was used for any petechial bleeding as necessary. Definitive antifungal treatment options, both pharmaceutical and surgical, have been reviewed and discussed with the patient. The patient solely prefers the use of intermittent/as needed professional debridement services for their nail condition and understands the need for additional periodic treatments to maintain effectiveness in symptomatic relief - 21354 Keratoma Treatment Parring or Cutting o f Benign Hyperkeratotic Lesion(s) (-57) More than 4 Lesions - Due to the at risk nature of the patients medical condition as documented in the exam findings, performance of this keratoderma treatment is medically necessary as its management by an unskilled/untrained nonprofessional would put this patients foot and overall health at risk. Therefore, the benign hyperkeratotic lesions, ( _6_ ) in total, locations as stated and described in the exam ( , Medial plantar, TA, T5, SUB MTH (s), 5, B/L , plantar Heel(s), B/L ), were pared, and/or cut utilizing a sterile 15 blade, tissue nippers, and/or power dremel instrumentation by the physician of record - 57677 Progress Notes * Anastacio MEDRANO FDOB:1940 (84 yo M)Acc No.[id number]:01/12/2025 Progress Note Patient: Anastacio RECINOS Provider: Ping Hernandez DPM :1940 A ge:84 Y S ex:Male Date:01/12/2025 [facility] [address] Pcp:Hema Kelly Subjective: * Chief Complaints: * A t Risk FootcareSkin ProblemToe Irritation * HPI: A t Risk footcare: Pt States Last PCP Visit: D ate 0 09/14/2024 S kin problems: Nature: s caling , redness. Location: B /L . Duration: , a few weeks. Course: , recurrent. Treatments: c lotrimazole-Betamethasone,,, has been effective for the condition in the past pt request anew rx. T oe pain: Location: B /L feet. Duration: s everal years. Course: w orse. Aggravated by: s hoes, any pressure. Treatments: c hange in shoes. * ROS: G eneral/Constitutional: Nausea d enies. V omiting d enies. H kelsi Thirst d enies. L oss appetite d enies, denies. C hills d enies, denies. F atigue d enies. F ever d enies, denies. N ight Sweats d enies. U nexplained weight loss d enies. U nexplained weight gain d enies. O phthalmologic: Blurred vision d enies. R ed eye d enies. ? H EENTM: Dentures d enies. D izziness d enies. G lasses/contacts a dmits. R etinopathy d enies. B lurred/double vision d enies. T MJ?denies. D ischarge/drainage d enies. I mplants d enies. S ore throat d enies. D ental implants d enies. H etta of hearing d enies. D ifficulty chewing/swallowing/speaking d enies. N ose bleeds d enies. S ore mouth d enies, denies.?Swollen glands d enies. R espiratory: On Oxygen d enies. P neumonia/pleurisy d enies.?Bronchitis d enies. E mphysema d enies. C oughing d enies, denies. C ough blood d enies. S hortness of breath d enies, denies. W heezing d enies, denies.? C ardiovascular: Pacemaker d enies. M SENIOR SOFTWARE DEVELOPER d enies. W PW d enies. C HF d enies. H eart attack d enies. S eptal defect d enies. R apid beat d enies. C hest pain d enies, denies. A trial Fib. d enies, denies. M urmur/Palpitations d enies. G astrointestinal: Hemorrhoids d enies. S tomach/Abdominal pain d enies, denies. D ark blood stool d enies. I rritable bowel d enies. C onstipation?denies. D iarrhea d enies, denies. V omiting d enies. H ematology: Swelling d enies. C lots d enies. V aricose Veins d enies. B ruising d enies. B leeding problem d enies. G enitourinary: Blood urine d enies, denies. F requent/Painfu/urination/bladder control d enies, denies. K idney stones d enies. I nfection (UTI) d enies. N ephropathy d enies. s ex trans dis (STD) d enies. P rostate d enies.? M usculoskeletal: Hammertoes d enies. B unions d enies. B ack Pain d enies. M uscle Cramps/ Resting d enies. M uscle cramps / walking d enies.?Generalized aches and pains d enies. P ainful joints d enies. S wollen joints?denies. W eakness d enies. P odiatric: Comments S [facility] for comments. I nteg.: Parmar d enies. S cars d enies. C orns/calluses?, admits. I ngrown nails d enies. P ainful nails , denies. O pen Sores?denies. I tching d enies. R ashes d enies, denies. N eurologic: Difficulty sleeping d enies. B rain disorder d enies. N umbness d enies. B alance trouble d enies. C onfusion d enies, denies.?Fainting/blackouts d enies. H eadache d enies. T ingling d enies. T remors d enies. * Medical History: * Surgical History: k nee surgery Cataract right eye 03/09/2012cataract left eye 04/2012prostatectomy 03/2013right knee tendon surgery 07/2013carpal tunnel surgery 2carpal tunnel, right hand 09/23/22 * Hospitalization/Major Diagno stic Procedure: A dmitted to [facility]; fell on ice 08/05/2014MM septic shock 03/2018 * Family History: M other: , diagnosed with Other specified conditions influencing health status. F ather: , diagnosed with Diabetic - NIDDM, Unspecified heart disease. * Social History: T obacco Use: T obacco use other than smoking A re you an other tobacco user? N o Tobacco Control (Standard) T obacco use: N onsmoker A dditional Findings: Tobacco non-user C urrent nonsmoker M iscellaneous: C affeine: yes, frequency:, 1-2 cups per day. Children: yes. Exercise: yes, bike riding. Marital status: . Occupation: Retired. D rug/Alcohol: A LINH-C (Standard) D id you have a drink containing alcohol in the past year? Y es H ow often did you have a drink containing alcohol in the past year? M onthly or less (1 point) H ow many drinks did you have on a typical day when you were drinking in the past year? 1 or 2 drinks (0 point) H ow often did you have six or more drinks on one occasion in the past year? L ess than monthly (1 point) P oints 2 I nterpretation N egative * Medications: T akingAtorvastatin Calcium Xarelto Lisinopril Metformin & Diet Manage Prod Diabetic Insoles glyBURIDE 2.5 MG Tablet Orally Hydrocortisone 2.5 % Cream as directed Externally to feet Twice a day , Notes to Pharmacist: PRNMetoprolol Tartrate 25 MG Tablet Oral Voltaren 1 % Gel as directed Externally Clotrimazole-Betamethasone 1-0.05 % Cream 1 application Externally Twice a day Taking Atorvastatin Calcium Taking Xarelto Taking Lisinopril Taking Metformin & Diet Manage Prod Taking Diabetic Insoles Taking glyBURIDE 2.5 MG Tablet Orally Taking Hydrocortisone 2.5 % Cream as directed Externally to feet Twice a day , Notes to Pharmacist: PRNTaking Metoprolol Tartrate 25 MG Tablet Oral Taking Voltaren 1 % Gel as directed Externally Taking Clotrimazole-Betamethasone 1-0.05 % Cream 1 application Externally Twice a day Not-Taking/PRNExtra Depth Orthopedic Shoes (1 Pair) with Customized Heat Molded Multidensity Innersoles (3 Pair) as directed Dx: NIDDM/Polyneuropathy (E11.42), Hammertoe Foot Deformity (M20.41,M20.42), Preulcerative Skin Lesion(s) (L85.1 Clotrimazole-Betamethasone 1-0.05 % Cream 1 application Externally Twice a day amLODIPine Besylate 5 MG Tablet 1 tablet Orally Once a day Lisinopril 10 MG Tablet 1 tablet Orally Once a day Loprox Extra-Depth Diabetic Shoes with 3 Pair Custom heat-molded multi-density innersoles . . for 1 year . Dx:hallux limitus and hammertoes zzzExtra Depth Orthopedic Shoes (1 Pair) with Customized Heat Molded Multidensity Innersoles (3 Pair) . . . . Dx: NIDDM/Polyneuropathy (E11.42), Hammertoe Foot Deformity (M20.41,M20.42), Preulcerative Skin Lesion(s) (L85.1) Medication List reviewed and reconciled with the patientNot-Taking/PRN Extra Depth Orthopedic Shoes (1 Pair) with Customized Heat Molded Multidensity Innersoles (3 Pair) as directed Dx: NIDDM/Polyneuropathy (E11.42), Hammertoe Foot Deformity (M20.41,M20.42), Preulcerative Skin Lesion(s) (L85.1 Not-Taking/PRN Clotrimazole-Betamethasone 1- 0.05 % Cream 1 application Externally Twice a day Not-Taking/PRN amLODIPine Besylate 5 MG Tablet 1 tablet Orally Once a day Not-Taking/PRN Lisinopril 10 MG Tablet 1 tablet Orally Once a day Not-Taking/PRN Loprox Not-Taking/PRN Extra-Depth Diabetic Shoes with 3 Pair Custom heat-molded multi-density innersoles . . for 1 year . Dx:hallux limitus and hammertoes Not-Taking/PRN zzzExtra Depth Orthopedic Shoes (1 Pair) with Customized Heat Molded Multidensity Innersoles (3 Pair) . . . . Dx: NIDDM/Polyneuropathy (E11.42), Hammertoe Foot Deformity (M20.41,M20.42), Preulcerative Skin Lesion(s) (L85.1) Medication List reviewed and reconciled with the patient * Allergies: I odinated Diagnostic Agentsyes[Allergies Verified] Objective: * Vitals: H t: 5 ft 6 in, Wt: 210, BMI: 33.89, Shoe size: 10.5, BP: 121/80 mm Hg, BS: 102, Wt-k.26 kg. * P ast Orders: L ab:HEMOGLOBIN A1C (GLYCOHEMOGLOBIN) (Order Date - 08/31/2024) (Collection Date & Time - 08/31/2024 01:04 PM) Value Reference Range HEMOGLOBIN A1C % (HH) 6.2 * Examination: O phthalmology Referral: DIABETES EYE EXAM P rocedure Performed: Vikki Lange ate of Exam Performed 0 10/05/2024 D iabetic Retinopathy Screening: Y es F indings of Diabetic Eye Exam: n o retinopathy G eneral Examination: GENERAL APPEARANCE: R merlineeals a pleasant, alert, well nourished, well-developed, well hydrated individual, who demonstrates proper attention to hygiene/body habitus, and is in no acute distress, Pt serves as own historian for office visit today. ORIENTED: p erson, place, and time. FOOT EXAM: L ower Extremity Neurological Exam performed:?Yes V isual exam of foot performed: Y kala D ate 0 01/12/2025 S ensory testing performed: s ensations diminished S ensory and motor testing performed: s ensations diminished P edal pulse taking performed: 2 + Footwear Evaluation F ootwear Evaluation performed: Y es N eurological: SENSORY: Neurological exam demonstrates inability for patient to distinguish sharp/dull pin prick discrimination, reduced, light touch sensation, reduced, vibration sensation,reduced, proprioception identification, in a stocking fashion, B/L. Test with 5.07 Fulda-Simona monofilament performed at plantar aspects of 5 varied sites per foot shows sensation absent in at least 2 locations, B/L, , Pt relates, burning, tingling, anesthesia. O rthopedic: MUSCLE STRENGTH: 5 /5 all groups in a symmetrical fashion, B/L. GAIT ABNORMALITY: a ntalgic, B/L. 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 BUNION: D orso-Medially prominent 1st MPJ, Limited 1st MPJ Dorsal ROM, B/L. DIGITAL DEFORMITIES: D igital contracture, PIPJ, 2-5 B/L, incompl-reducible to push-up test, no over, nor underlapping, t here is e vidence of shoe producing skin irritation. FOOTWEAR EVALUATION: w orn, non-supportive, shoe gear properties exacerbate patients complaints in relation to their foot/toe deformity. V ascular: DP PULSES (B): 2 /4, B/L. PT PULSES (B): 2 /4, B/L. CAPILLARY FILL TIME: 3 secs. per digit, b/l. TROPHIC CONDITION-TEXTURE/ELASTICITY/TURGOR/HAIR GROWTH (B):?absent. TEMPERTURE GRADIENT (C): w arm to cool, proximal to distal.? EDEMA (C): 1 /4, non-pitting, B/L, Ankle(s). VARICOSITIES: present, mild dorsal left foot. ? D ermatologic: SKIN FINDINGS: S kin exam reveals Keratotic lesion(s) located at, Medial plantar, TA, T5, SUB MTH (s), 5, B/L , plantar Heel(s), B/L , Skin shows sign(s) of, erythema, scaling, in a moccasin fashion, no fissure(s) present, B/L, . N ails: NAILS are: E longated, overgrown, dystrophic, lytic, greater than 3mm thick, discolored and friable with crumbly malodorous subungual debris, with dull to no pain on palpation due to neuropathy, T 1, T2, T3, T4, T6, T7, T8, T9. ? Assessment: * Assessment: 1. O ther hammer toe(s) (acquired), right foot - M20.41 (Primary) S pecify :Chronic problem, Worse 2. T ype 2 diabetes mellitus with diabetic polyneuropathy - E11.42 3 . T inea unguium - B35.1 4 . T inea pedis of both feet - B35.3 ? S pecify :Acute problem, Uncomplicated (3),Rx drug management (4) 5 . O ther hammer toe(s) (acquired), left foot - M20.42 S pecify :Chronic problem, Worse Plan: * Treatment: 2. T ype 2 diabetes mellitus with diabetic polyneuropathy P rocedure: 81847-KYFF SKIN LESIONS, OVER 4 3. T inea unguium P rocedure: 47294-[id number] NAIL, 6 OR MORE 4. T inea pedis of both feet Refill Clotrimazole-Betamethasone Cream, 1-0.05 %, 1 application, Externally, Twice a day, 30 days, 30, Refills 3. * Procedures: D ebride Nail 6-10: Nail debridement D ue to the clinical pathology outlined in the exam findings, performance of this nail treatment is medically necessary as its management by an unskilled/untrained nonprofessional would put this patients foot and overall health at risk. Therefore, debridement to affected nail(s), as described in exam ( T1, T2, T3, T4, T6, T7, T8, T9, ), was performed exclusively by the physician of record to reduce/remove overall nail length, girth, thickness, subungual debris, and necrotic tissue, by manual and/or electrical means through the use of a nail nipper and/or dremel-type cutter grinder operator, to a more viable healthy nail plate or bed tissue 6-10 nails in total. Silver nitrate was used for any petechial bleeding as necessary. Definitive antifungal treatment options, both pharmaceutical and surgical, have been reviewed and discussed with the patient. The patient solely prefers the use of intermittent/as needed professional debridement services for their nail condition and understands the need for additional periodic treatments to maintain effectiveness in symptomatic relief - 27964. K eratoma Treatment: Parring or Cutting of Benign Hyperkeratotic Lesion(s) ( -57) More than 4 Lesions - Due to the at risk nature of the patients medical condition as documented in the exam findings, performance of this keratoderma treatment is medically necessary as its management by an unskilled/untrained nonprofessional would put this patients foot and overall health at risk. Therefore, the benign hyperkeratotic lesions, ( _6_ ) in total, locations as stated and described in the exam ( , Medial plantar, TA, T5, SUB MTH (s), 5, B/L , plantar Heel(s), B/L ), were pared, and/or cut utilizing a sterile 15 blade, tissue nippers, and/or power dremel instrumentation by the physician of record - 05246. * Procedure Codes: 1 1721 DEBRIDE NAIL, 6 OR MORE, Modifiers: XS 16882 TRIM SKIN LESIONS, OVER 4, Modifiers: XS * Preventive Medicine: Counseling: D iscussion: - 14: Office or other outpatient visit for the evaluation and management of an established patient, which required a medically appropriate history and/or examination and MODERATE level of DECISION MAKING for: 1 OR MORE CHRONIC PROBLEM(S) THATS WORSENING, 2 STABLE CHRONIC PROBLEMS, A NEWLY DIAGNOSED PROBLEM WITH UNCERTAIN PROGNOSIS, AN ACUTE COMPLICATED INJURY WITH MULTIPLE TREATMENT OPTIONS, OR AN ACUTE PROBLEM WITH ACCOMPANYING SYSTEMIC SYMPTOMS, THAT POSE(S) A MODERATE RISK OF MORBIDITY. THIS CONDITION MAY ALSO INCLUDE RX DRUG MANAGEMENT, OR A DECISON FOR MINOR SURGERY. The visit on the day of the encounter encompassed interpreting the data and educating the patient as to the nature of their condition, treatment options available according to their individual PMH, meds, allergies, and overall health/living conditions, as well as any potential risks or complications that may occur from a failure to adhere to, and participate in, the recommended course of therapy. The discussion included a complete verbal, and/or written explanation of the examination results, any x-rays taken, the proposed diagnosis, and outline of the treatment plan. A schedule for future care needs was also explained. The patient verbalized an understanding of the instructions at this time and agreed to be an active participant in their treatment. If the patient should think of any questions or concerns after the visit, I have encouraged the patient to call the office. D igital Treatment: H T- I explained to the patient the possible etiologies of Hammertoes, including genetics/foot type/shoegear/activity level/exercise routine and the risks/benefits of all the different treatment options for their pain including: No treatment at all, Rest, Ice, New/supportive/wider/deeper Shoe gear, Digital Padding/Strapping/Taping/Bracing/Gel protective sleeves, Foot/Ankle AFO Bracing, Stretching exercises, Deep Tissue Massage, Arch support/shoe inserts with splay metatarsal padding, and Custom orthoses. I insisted that any digital devices be removed daily and not worn overnight for safety. The patient is to carefully examine the toes daily for any skin irritation while using any splinting or padding device. The advantages and disadvantages of each option were discussed and the patients questions re: shoe gear, padding, custom vs prefabricated inserts, activity level, and consistency in home treatment regimens for optimal success were answered to their verbally confirmed satisfaction, Recomm, rest, ice, proper shoegear, padding, orthotics, anti-inflammatories or tylenol as tolerated, topical analgesics, cortisone injections. S hoe Gear Counseling: S HOE Rx - The patient was counseled in great detail on their muscoloskeletal foot and toe deformities which coincided with the dermatological presentations visualized on exam. We discussed how their deformities put the integrity of their feet at risk for potential pedal complications which makes the accomidative diabetic shoes and cutomizable inserts medically necessary. We discussed the different shoe and insert treatment types and options, as well as the important advantages for adhering to regularly wearing these accomidative devices daily. The patient was made aware of the fact that a failure to abide by these recommedations may be deleterious to their foot health as they are able to prevent many pedal complications such as skin irritation, skin ulceration, infection, and even loss of toe/foot/leg/or life. Time was also spent with the patient dispensing and discussing proper diabetic footcare techniques including daily skin moisturization, daily foot inspection for any interruption in skin integrity including open lesions, or sign of infection such as redness/malodor/drainage/swelling. Also discussed and recommended were procedures regarding daily shoe inspection for the presence of internal foreign bodies as well as any visualized irregular shoe or insert wear. Patient questions re: shoes, inserts, and self foot inspections were answered to their satisfaction as the patient verbally confirmed a full understanding of the above information., Patient DEFERS recommended Extra Depth Orthopedic pressure-accommodative shoes against medical advice. Ping Juarez: Sejal davila recent successful results to treatment, The patient is to cont the rx cream as directed, Rx topical antifungal bid for 4 weeks, PREVENTIVE STRATEGIES were reviewed with the patient to avoid recurrent issues .. Screening/Special Tests: F all Risk Screening: N o falls in the past year F ALLS: Screening for Future Fall Risk Have you had two or more falls in the past year? N o Have you had any falls with injury in the past year? N o * Follow Up: p rn * Images: * Sign off status: Completed true * Provider: Ping Hernandez DPM Date: 0 01/12/2025 Generated for Luz Maria blount/Nehemias/Antony on: 0 01/17/2025 10:07 AM EDT History and Physical Notes * HPI (History of Present Illness) Category Sub-Category Detail Notes Category Not es Toe pain Location: B/L feet Duration: several years Course: worse Aggravated by: shoes, any pressure Treatments: change in shoes Skin problems Nature: scaling , redness Location: B/L Duration: , a few weeks Course: , recurrent Treatments: clotrimazole-Betamet hasone,,, has been effective for the condition in the past pt request anew rx At Risk footcare Pt States Last PCP Visit: Date: Examination Category Sub-Category Detail Notes Category Not es Neurological SENSORY: Neurological exa m demonstrates inability for patient to distinguish sharp/dull pin prick discrimination, reduced, light touch sensation, reduced, vibration sensation,reduced, proprioception identification, in a stocking fashion, B/L. Test with 5.07 Fulda-Simona monofilament performed at plantar aspects of 5 varied sites per foot shows sensation absent in at least 2 locations, B/L, , Pt relates, burning, tingling, anesthesia BABINSKI REFLEX: TINEL'S COMPRESSION: DEEP TENDON REFLEXES: Dermatologic SKIN FINDINGS: Skin exam reveal s Keratotic lesion(s) located at, Medial plantar, TA, T5, SUB MTH (s), 5, B/L , plantar Heel(s), B/L , Skin shows sign(s) of, erythema, scaling, in a moccasin fashion, no fissure(s) present, B/L, Orthopedic GAIT ABNORMALITY: antalgic, B/L FOOT MORPHOLOGY: (-) Charcot collapse /destruction noted at MTJ BUNION: Dorso-Medially promi nent 1st MPJ, Limited 1st MPJ Dorsal ROM, B/L FOOTWEAR EVALUATION: worn, non-supportiv e, shoe gear properties exacerbate patients complaints in relation to their foot/toe deformity DIGITAL DEFORMITIES: Digital contracture , PIPJ, 2-5 B/L, incompl-reducible to push-up test, no over, nor underlapping, there is evidence of shoe producing skin irritation MUSCLE STRENGTH: 5/5 all groups in a symmetrical fashion, B/L General Examination GENERAL APPEARANCE: Reveals a pleasant, alert, well nourished, well-developed, well hydrated individual, who demonstrates proper attention to hygiene/body habitus, and is in no acute distress, Pt serves as own historian for office visit today FOOT EXAM: Lower Extremity Neurological Exa m performed:: Yes Visual exam of foot performed:: Yes Date: 01/12/2025 Sensory testing performed:: sensations d iminished Sensory and motor testing performed:: se nsations diminished Pedal pulse taking performed:: 2+ ORIENTED: person, place, and t tatyana Footwear Evaluation Footwear Evaluation performe d:: Yes Ophthalmology Referral DIABETES EYE EXAM Procedure Perform ed:: Yes Date of Exam Performed: 10/05/2024 Diabetic Retinopathy Screening:: Yes Findings of Diabetic Eye Exam:: no retin opathy Vascular DP PULSES (B): 2/4, B/L PT PULSES (B): 2/4, B/L CAPILLARY FILL TIME: 3 secs. per digit, b/l TEMPERTURE GRADIENT (C): warm to cool, p roximal to distal TROPHIC CONDITION-TEXTURE/EL ASTICITY/TURGOR/HAIR GROWTH (B): absent EDEMA (C): 1/4, non-pitting, B/ L, Ankle(s) VARICOSITIES: present, mild dorsal left foot Nails NAILS are: Elongated, overg rown, dystrophic, lytic, greater than 3mm thick, discolored and friable with crumbly malodorous subungual debris, with dull to no pain on palpation due to neuropathy, T1, T2, T3, T4, T6, T7, T8, T9
--- OUTSIDE RECORDS SUMMARY | 2025-01-17 10:07 | XMS_ITS | Clinical Summary ---
Author Organization [facility], Address [address] [facility] [place] [address] Phone Care Team Providers Care Design Maker Name Role Phone Andriy Sherman MD Primary Care Provider [phone] Allergies Active Allergy Reactions Criticality Noted Date [...] Due Date Last Done Comments Pneumococcal Vaccine: 50+ Years (3 of 3 - PCV) 02/28/2018 02/28/2017, 04/10/2006, 02/07/2001 Diabetes: Ophthalmology Exam 07/03/2020 Diabetes: Pedal Pulse Checked 07/03/2020 Diabetes: Sensory Foot Exam 07/03/2020 Diabetes: Visual Foot Exam 07/03/2020 Diabetes: Hemoglobin A1C 05/14/2022 02/12/2022, 06/02 Influenza Vaccine (#1) 2025 , 03/11/2019, 03/01/2019, Additional history exists Pneumococcal Vaccine: Peds (0 to 5 Years) and At-Risk Patients (6 to 49 Years) Discontinued 02/28/2017, 04/10/2006, 02/07/2001 Hepatitis B Vaccine Aged Out No longe [...] AM EDT) Hemoglobin A1C 6.2(H) (4.0-5.6) % [facility] Comment: MONITORING: In known diabetic patients, hemoglobin A1c targets should be discussed with health care provider. DIAGNOSTIC USE: The [place] Diabetes Association (ADA) and the World Health [...] Supplement 1 Testing performed or reported by [facility], [facility], a Service of [facility], [address] [place] [id number] Kathrine Pan MD, Computational Mathematician [facility]# [id number] Blood specimen (specimen) Venous blood / Unknown 02/12/2022 7:39 AM EDT 02/12/2022 9:53 AM EDT us Moustapha Levine MD LAB BLOOD ORDERABLES Final Resul t [facility] from Last 3 Months or Most Recently Relevant to Health Maintenance Insurance ELOISA DIAZ [id number] [facility] Address: [facility] [address] [place] [address] ELOISA DIAZ [id number] ELOISA DIAZ [id number] Care Teams Design Maker Relationship Specialty Start Date End Date Andriy Sherman MD [address] [place] [id number] PCP - General Family Medicine 03/02/21
--- OUTSIDE RECORDS SUMMARY | 2025-01-17 10:07 | XMS_ITS | Clinical Summary ---
Author Organization [facility] Address [address] [place] [address] Care Team Providers Care Rod Mill Tender Name Role Phone Rebecca Barros Primary Care Provider [phone] Allergies No known active allergies Medications Medication [...] 1-dose 75+ series) 2016 Influenza Vaccine (#1) 2025 Hepatitis B Vaccines Aged Out No long er eligible based on patient's age to complete this topic RSV Ped < 20 months Aged Out No longe r eligible based on patient's age to complete this topic Care Teams Rod Mill Tender Relationship Specialty Start Date End Date Rebecca Barros PA [address] [facility] [id number] PCP - General Physician Toy Assembler Wood 09/17/17
--- OUTSIDE RECORDS SUMMARY | 2025-01-17 10:07 | XMS_ITS | Clinical Summary ---
Author Organization [address] [place] [address] [place] [phone] Phone Care Team Providers Care Records Specialist Name Role Phone Em Tam MD Primary Care Provider [phone] Allergies Active Allergy Reactions Criticality Noted Date [...] Active lisinopriL (PRINIVIL,ZESTRIL ) 5 mg tablet 2 tablets (10 mg total). 1 Active metFORMIN (GLUCOPHAGE) 500 mg tablet Take 2 tablets (1,000 mg total) by mouth 2 (two) times a day with meals. 1 Active multivit-min/iron /folic acid/K (ADULTS MULTIVITAMIN ORAL) Multiple Vitamins-Mine rals (Multivitamin Adult) Chew Tab Take by mouth. Active Xarelto 20 mg tablet TAKE 1 TABLET BY MOUTH IN THE EVENING 90 tablet 3 5 Active metoprolol tartrate (LOPRESSOR) 25 mg tablet Take 0.5 tablets (12.5 mg total) by mouth 2 (two) times a day. 90 tablet 3 Active lisinopriL (PRINIVIL,ZESTRIL ) 2.5 mg tablet Take 1 tablet (2.5 mg total) by mouth 1 (one) time each day. Active ubidecarenone (CO Q-10 ORAL) Take 100 mg by mouth 1 (one) time each day. Active Active Problems Problem Noted Date Diagnosed Date Nonischemic cardiomyopathy ([facility] V24, CMS/HCC V28) 01/01/2023 Overview (05/13/2024): - Likely tachycardia mediated - Had an EF of 40 to 45% while in atrial flutter which completely recovered on most recent echocardiogram in sinus rhythm Assessment & Plan (11/16/2024 8:11 AM EDT): Will update echocardiogram in 3 months as part of her surveillance echocardiograms. He has no new anginal signs or increased shortness of breath. Likely tachycardia mediated. Assessment & Plan (05/13/2024 3:02 PM EST): Euvolemic on exam, recovery of ejection fraction on most recent echo, continue low-dose metoprolol and lisinopril at current dose Typical atrial flutter (CMS/[facility] V24, [facility] V28 ) 01/01/2023 Overview (05/13/2024): - Status post cardioversion procedure in November 2022 for symptomatic atrial flutter with rapid ventricular response rate from which he appears to have maintained sinus rhythm - Currently on Xarelto for CVA prophylaxis and rate control only Assessment & Plan (11/16/2024 8:12 AM EDT): Currently on Xarelto for CVA prophylaxis and metoprolol for rate control. He denies any increase in palpitations. Denies any abnormal bleeding. Should remain anticoagulated due to an elevated CHADS2 Vascor, for age, hypertension, diabetes. Assessment & Plan (05/13/2024 3:02 PM EST): [...] and calculated aortic valve area of 1.2 cm with mean gradient 21 mmHg assuming LVOT diameter of 2.4 cm, mild pulmonary hypertension with RV systolic pressure 42 mmHg-unchanged from prior in March 2023 Assessment & Plan (11/16/2024 8:12 AM EDT): Sounds good on a physical exam. Will update echocardiogram. Assessment & Plan (05/13/2024 3:02 PM EST): [...] 20 mg at bedtime Assessment & Plan (11/16/2024 8:13 AM EDT): Going to update a lipid panel. Continue current atorvastatin 20 mg at bedtime. Assessment & Plan (05/13/2024 3:02 PM EST): Continue current atorvastatin 20 mg at bedtime Nephropathy, diabetic (CMS/HCC V24, CMS/[facility] V28) 12/14/2021 Obesity 12/14/2021 Osteoarthritis 12/14/2021 PUD (peptic ulcer disease) 12/14/2021 Proteinuria 06/12/2021 Essential hypertension 06/11/2021 Assessment & Plan (11/16/2024 8:11 AM EDT): Well-controlled the appointment today. Patient should continue on his current medication regiment which includes lisinopril 12.5 mg p.o. daily, and metoprolol tartrate 12.5 mg p.o. twice daily. Assessment & Plan (05/13/2024 3:02 PM EST): [...] this in mind. Type 2 diabetes mellitus ([facility] V24, [facility] V 28) 06/11/2021 Malignant neoplasm of prostate ([facility] V24, [facility] V28) 01/22/2013 Overview (04/08/2024): prostatectomy 03/14 Encounters Date Type Department Care Team Description 11/24/2024 Telephone [facility] [address] [facility] [address] [place] [phone] Goldie Emerson MA Results (Lab results) 11/16/2024 7:40 AM EDT Office Visit [facility] Cardiology [facility] [address] [facility] [address] [place] [phone] Caleb Barton NP Essential hypertension (Primary Dx); Mixed hyperlipidemia; Nonischemic cardiomyopathy ([facility] V24, [facility] V28); Nonrheumatic aortic valve stenosis; Typical atrial flutter ([facility] V24, [facility] V28) 11/08/2024 Telephone [facility] Cardiology [facility] [address] [place] [phone] Cecilia Childs MD Patient Forms from Last 3 Months Surgical History Surgery Date Site/Laterality Comments OTHER SURGICAL HISTORY Right PROCEDURE: HISTORY OTHER; COMMENT: quadriceps tendon rupture Medical History Medical History Date Comments Essential hypertension DX:Essent ial hypertension Hyperlipidemia DX:Hyperlipidemi a Diabetes mellitus type 2, co ntrolled, with complications ([facility] V24, [facility] V28) DX:Diabetes mellitus type 2, controlled, with complications ([facility]) Asthma DX:Asthma Cancer of prostate ([facility] V24, [facility] V28) DX:Cancer of prostate ([facility]) Carpal tunnel syndrome on right DX:Carpal tunnel syndrome on right Carpal tunnel syndrome, bilateral DX:Carpal tunnel syndrome, bilateral Constipation DX:Constipation ED (erectile dysfunction) DX:ED (erectile dysfunction) Essential (primary) hypertension DX:Essential (primary) hypertension Obesity (BMI 30.0-34.9) DX:Obesi ty (BMI 30.0-34.9) Orthopnea DX:Orthopnea Osteoarthritis DX:Osteoarthriti s PUD (peptic ulcer disease) DX:PU D (peptic ulcer disease) Type 2 diabetes mellitus ([facility] V24, [facility] V28) DX:Type 2 diabetes mellitus ([facility]); COMMENT: controlled wound infection ARF (acute renal failure) ([facility] V24) DX:ARF (acute renal failure) ([facility]) Family History Medical History Relation Name Comments Heart failure Brother in his mid 70s Heart failure Father Other: diabetes mellitus type 2 Mother Relation Name Status Comments Brother Alive Father Mother Social History Tobacco Use Types Packs/Day Years Used Date Smoking Tobacco: Former Smokeless Tobacco: Never Alcohol Use Standard Drinks/Week Comments Yes 1 (1 standard drink = 0.6 oz pur e alcohol) glass of wine nightly Sex and Gender Information Value Date Recorded Sex Assigned at Not on file Legal Sex Male 2:45 AM EST Gender Identity Not on file Sexual Orientation Not on file Obstetrics History Last Filed Vital Signs Vital Sign Reading Time Taken Comments Blood Pressure 120/60 11/16/2024 7:41 AM EDT Pulse 54 11/16/2024 7:41 AM EDT Temperature - - Respiratory Rate - - Oxygen Saturation 97% 11/16/2024 7:41 AM EDT Inhaled Oxygen Concentration - - Weight 96.6 kg (213 lb) 11/16/2024 7:41 AM EDT Height 167.6 cm (5' 6 ) 11/16/2024 7:41 AM EDT Body Mass Index 34.38 11/16/2024 7:41 AM EDT Plan of Treatment Upcoming Encounters Date Type Department Care Team (Late st Contact Info) Description 02/22/2025 8:00 AM EDT Ancillary Procedure [facility] [address] [place] [address] Health Maintenance Due Date Last Done Comments Diabetes: Annual GFR (Glomerular Filtration Rate) 1941 Diabetes: Annual Foot Exam 09/25/1950 Diabetes: Annual Retina Eye Exam 09/25/1950 Falls Risk Assessment 05/12/2022 Medicare Annual Wellness Visit 05/12/2022 Social Influencers of Health Screening 05/12/2022 Diabetes: Annual Urine Albumin-Creatinine Ratio (uACR) 05/18/2022 Hypertension/CHF/CAD Annual BMP Blood Test 05/18/2022 Diabetes: Blood Sugar Control Test (HGBA1C) 08/12/2022 02/12/2022 Depression Screening 06/02/2024 COVID-19 Vaccine (8 - Pfizer risk season) 2024 03/01/2024, 02/16/2023, 02/18/2022, Additional history exists Influenza Vaccine (#1) 2025 , 02/16/2023, 02/18/2022, Additional history exists Cholesterol Screening (Lipid Panel) 11/18/2029 11/18/2024, 11/18/2024 DTaP,Tdap,and Td Vaccines (4 - Td or Tdap) 01/08/2031 01/08/2021, 11/08/2010, 01/07/2001 Zoster Vaccines Completed 04/12/2018, 01/02, 06/28/2009 Pneumococcal Vaccine: 50+ Years Completed 02/25/2023, 02/28/2017, 04/10/2006, Additional history exists RSV Immunization Adult Patients Completed 03/01/2024 HIB Vaccines Aged Out No [...] age to complete this topic Meningococcal B Vaccine Aged Out No l onger eligible based on patient's age to complete this topic RSV Immunization Patients Under 20 months Aged Out No longer eligible based on patient's age to complete this topic Varicella Vaccines Aged Out No longer eligible based on patient's age to complete this topic Procedures Procedure Name Priority Date/Time Associated Diagnosis Comments LDL CHOLESTEROL, DIRECT Routine 11/18/2024 8:24 AM EDT SPECIMEN STATUS REPORT Routine 11/18/2024 8:24 AM EDT LIPID PANEL Routine 11/18/2024 8:24 AM EDT from Last 3 Months Results * SPECIMEN STATUS REPORT (11/18/2024 8:24 AM EDT) Specimen Status Report Comment [facility] Comment: Ambig Abbrev LP Default Ambig Abbrev LP Default A hand-written panel/profile was received from your office. In accordance with the [facility] Ambiguous Test Code Policy dated November 2002, we have completed your order by using the closest currently or formerly recognized AMA panel. We have assigned Lipid Panel, Test Code #[id number] to this request. If this is not the testing you wished to receive on this specimen, please contact the [facility] Client Inquiry/Technical Services Department to clarify the test order. We appreciate your business. 11/18/2024 8:24 AM EDT 11/18/2024 Narrative [facility] 1 - 11/19/2024 4:06 AM EDT Performed at: 01 - [address] [id number] Chief Specialist Leed: Rachana Norman MD, Phone: [phone] us Caleb Barton NP LAB BLOOD ORDERABLES Final Resul t [facility] * LDL cholesterol, direct (11/18/2024 8:24 AM EDT) LDL Chol. (Direct) 83 0 - 99 mg/dL [facility] 1 11/18/2024 8:24 AM EDT 11/18/2024 Narrative [facility] 1 - 11/19/2024 5:06 AM EDT Performed at: 01 - [facility] [address] [address] [place], [place] [id number] Chief Specialist Leed: Rachana Norman MD, Phone: [phone] Caleb Barton SENIOR GEOTECHNICAL ENGINEER LAB BLOOD ORDERABLES Final Resul t Performing Organization Address City/[facility]/ZIP Co de Phone Number [facility] * Lipid panel (11/18/2024 8:24 AM EDT) Cholesterol Total 175 100 - 199 mg/dL [facility] Triglycerides 145 0 - 149 mg/dL [facility] HDL Cholesterol 59 >39 mg/dL [facility] VLDL Cholesterol Calculated 25 5 - 40 mg/dL [facility] LDL Chol Calc (NIH) 91 0 - 99 mg/dL [facility] LDL Calc Comment Comment [facility] Comment:See LDL Comment if r eported. 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
--- NOTE | 2025-01-17 10:40 | AM.OFFWIN_ITS ---
Intake Vital Signs 01/17/25 10:42 Height 5 ft 6 in Weight 210 lb BMI 33.9 BP 114/60 Blood Pressure Location Rt brachial Position Sitting Pulse 61 Pulse Source Pulse Oximeter Temp 98.3 F Temp Source Oral Pulse Oximetry (%) 97 Oxygen Delivery Method Room Air Intake Visit Reasons: EP Chest congestion, wheezing Intake Note: presents with chest congestion, coughing and wheezing Patient Tobacco Use Status: Never used Tobacco Allergies olmesartan Allergy (Verified 01/17/25 10:43) Unknown iv contast Allergy (Uncoded 07/26/24 09:51) Rash Do you need a note to return to daycare/school/sports/work: No HPI HPI Comments History of Present Illness Details History - The patient is an 84-year-old male pre senting with a cough, congestion and wheezing. - He reports lung congestion for four to five days, using Mucinex and an inhaler with minimal relief. - Wheezing is prominent at night, causin g insomnia, and he coughs up white or yellowish sputum without fever. - The patient has a history of smoking, quit 27 years ago, and is concerned about COPD. - He leads an active lifestyle, exercise s regularly, and occasionally drinks wine. - He lives with his who is not ill. - He denies fever, chills, chest pain, a bd pain, n/v/d. - Has been eating and drinking. Physical Exam General: Cooperative, healthy appearing, comfortable and no acute distress Orientation/consciousness: Patient oriented x3 Limitations: No limitations Head: Normal to inspection Ears: Hearing grossly normal bilaterally, external ears normal and TM's normal bilaterally Nose: Normal external nose present, normal nares present, and no nasal discharge present. Face and sinus: Sinuses nontender to palpation. Mouth: Normal oral and palatal mucosa present and moist mucous membranes noted. Throat: Tonsils normal. Uvula is midline. Posterior oropharynx with erythema and no exudates. Eyes: Appearance normal, both eyes and all related structures Neck: Normal visual inspection, full ROM. No lymphadenopathy noted. Respiratory: Clear to auscultation bilaterally with a little bit of wheezing. Normal respiratory effort, able to speak in complete sentences. No respiratory distress, not tachypneic, no tripod positioning and no use of accessory muscles. Cardiovascular: Regular rate and rhythm. Normal S1 and S2 Skin: No rashes or lesions noted Patient was informed and verbally consented to the use of an ambient scribe for clinic note documentation during this visit [facility] Medical History Spontaneous rupture of other tendons, right hand Type II diabetes mellitus PUD (peptic ulcer disease) Osteoarthritis Orthopnea Obesity Mixed hyperlipidemia Essential hypertension Erectile dysfunction Constipation ARF (acute renal failure) Mixed hyperlipidemia Bilateral carpal tunnel syndrome Carpal tunnel syndrome, right Cancer of prostate Left knee injury Surgical History H/O left knee surgery History of prostatectomy H/O prostatectomy Family History Brother Lung cancer Mother Diabetes Father Congestive heart failure Anginal pain Social History Household Members: None and Unknown / Unable to assess Housing: House Patient Tobacco Use Status: Never used Tobacco Current occupational status: retired Review of Systems Const All systems reviewed & are unremarkable except as noted in HPI and below Physical Exam Vital Signs: Last Vital Signs Temp 98.3 F 01/17/25 10:42 Pulse 61 01/17/25 10:42 BP 114/60 01/17/25 10:42 Pulse Ox 97 01/17/25 10:42 Oxygen Delivery Method Room Air 01/17/25 10:42 BMI result Body Mass Index 33.9 Assessment & Plan Assessment & Plan (1) Cough: Code(s): R05.9 - Cough, unspecified Qualifiers: Cough type: acute Qualified Code(s): R05.1 - Acute cough Plan Most likely URI vs covid vs flu vs RSV vs CAP Plan - Prescribed cough medicine for symptom relief. - Refilled inhaler prescription to manage wheezing. - Started antibiotics to treat possible infection. - VSS, pt well appearing - tylenol or motrin as needed - follow up with PCP Medications: New albuterol sulfate 90 mcg/actuation 2 puffs inhalation Q6H PRN 8.5 grams 0RF shortness of breath or wheezing or cough azithromycin For 250 mg dose pack: take 500 mg today (day 1), then 250 mg for 4 days (days 2-5) PO 6 tabs 0RF benzonatate 100 mg PO bid-tid PRN 30 caps 0RF Cough 10 days Coding Level of Care Code Est Pt Level 3 (10179) Diagnoses Acute cough R05.1 Cough type: acute
[2025-01-17 10:42] VITALS: BP 114/60; PULSE 61; TEMP 36.8; O2SAT 97; BMI 33.9
== END 2025-01-17 11:46 | disposition home or self-care (01) ==
PROVIDERS: Visit Provider Physician Assistant Medical
DX: R05.1 Acute cough (principal)

== ENCOUNTER → 2025-01-17 09:33 | Outpatient (BNVA) | payer MEDICARE, SELFPAY | PROVIDERS: Visit Provider Physician Assistant Medical | DX: R05.1 Acute cough (principal) | CPT/HCPCS: 99212 ==

== ENCOUNTER 2025-02-02 07:12 | Outpatient (AMB) | payer MEDICARE, SELFPAY ==
--- OUTSIDE RECORDS SUMMARY | 2024-04-02 08:45 | XMS_ITS ---
Author Organization [facility] Address [address] [place] [address] Care Team Providers Care Template Inspector Name Role Phone Hema Kelly Primary Care Provider Martha Berman [phone] Encounters Encounter Location Date Provider Diagnosis [address] [address] 04/02/2024 Martha Hernandez Plan Of Treatment Next Appt Details Provider Name:Martha Hernandez , 04/20/2025 09:15:00 AM, [address] [facility], [place], [address], Progress Notes * Anastacio MEDRANO FDOB:1940 (84 yo M)Acc No.[id number]:04/02/2024 Progress Note Patient: Anastacio RECINOS Provider: Ping Hernandez DPM :1940 A ge:83 Y S ex:Male Date:04/02/2024 Address:[address] [place] [address] Ana Cristina Montano [id number] Pcp:Hema Kelly Subjective: * Chief Complaints: * * Medical History: Objective: * Vitals: Assessment: Plan: * Treatment: * Images: * The named appointment provid er may or may not be the originator of this progress note, and it is not deemed complete until electronically signed by the appointment provider. Sign off status: Pending * Provider: Ping Hernandez DPM Date: 1 06/02/2023 Generated for Luz Maria blount/Nehemias/Antony on: 0 02/02/2025 07:14 AM EDT
--- OUTSIDE RECORDS SUMMARY | 2025-01-28 23:59 | XMS_ITS | Continuity of Care Document ---
Author Organization [facility] Pollo [address] Address [address] [place] [address]- Care Team Providers Care Leather Shaver Name Role Phone Yonatan ROE, Em Primary Care Physician Encounter [facility] Date(s): 12/29/24 - 01/28/25 [facility] Adult [address] [place] [address]- Encounter Type: Triage Allergies, Adverse Reactions, Alerts Substance Criticality Severity Reaction Reaction Severity Status olmesartan 1 Active 1Lip irritation/swelling. Immunizations Given and Recorded Vaccine Date Status Refusal Reason RSV vaccine preF3, recombinant 03/01/24 Recorded influenza virus vaccine, inactivated 03/01/24 Tyrone rded influenza virus vaccine, inactivated 02/16/23 Tyrone rded influenza virus vaccine, inactivated 02/18/22 Tyrone rded influenza virus vaccine, inactivated 02/23/21 Tyrone rded influenza virus vaccine, inactivated 02/22/20 Tyrone rded influenza virus vaccine, inactivated 02/19/19 Tyrone rded influenza virus vaccine, inactivated 02/03/18 Tyrone rded influenza virus vaccine, inactivated 02/17/17 Tyrone rded influenza virus vaccine, inactivated 02/11/17 Give n influenza virus vaccine, inactivated 03/02/16 Give n influenza virus vaccine, inactivated 01/31/16 Tyrone rded influenza virus vaccine, inactivated 1 02/09/15 Gi fer influenza virus vaccine, inactivated 02/11/14 Give n influenza virus vaccine, inactivated 02/22/13 Give n influenza virus vaccine, inactivated 2 03/04/09 Gi fer SARS-CoV-2(COVID-19)mRNA-LNP vac([id number]) 03/01/24 Recorded pneumococcal 20-valent conjugate vaccine 02/25/23 Recorded SARS-CoV-2(COVID-19)mRNA-LNP vac([id number]) 02/16/23 Recorded [id number] 12y+ bivalent booster vax 02/18/22 Recorded SARS-CoV-2 mRNA ([id number]) vax 09/08/21 Recorded SARS-CoV-2 (COVID-19) mRNA BNT-162b2 vac 03/04/21 Recorded SARS-CoV-2 (COVID-19) mRNA BNT-162b2 vac 08/01/20 Recorded SARS-CoV-2 (COVID-19) mRNA BNT-162b2 vac 07/11/20 Recorded tetanus-diphtheria toxoids (Td) 3 01/08/21 Given Influenza Virus Vaccine (oldterm) 03/11/19 Recorde d Influenza Virus Vaccine (oldterm) 4 03/05/08 Given Influenza Virus Vaccine (oldterm) 5 04/29/07 Given zoster vaccine, inactivated 04/12/18 Recorded zoster vaccine, inactivated 01/30/18 Recorded zoster vaccine, inactivated 12/2017 Recorded pneumococcal 23-valent vaccine 02/28/17 Recorded FluLaval (oldterm) 03/02/12 Given FluLaval (oldterm) 02/16/11 Given FluLaval (oldterm) 6 03/10/10 Given Tetanus-Diphth Toxoids, Adult (oldterm) 11/08/10 G iven Zostavax (oldterm) 06/28/09 Given influ virus vac, H1N1, inactive(oldterm) 06/14/09 Given Pneumococcal Vaccine (oldterm) 04/10/06 Given Pneumococcal Vaccine (oldterm) 02/07/01 Given diphtheria-tetanus toxoids (DT) 01/07/01 Given 1Result Comment: [facility]21/2015] [facility] 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, E11.40 Height 166.4 weight 99.3 kg Length of need Lifetime, 06/20/22 10:50:00 AM EST, Supply Start Date: 06/20/22 Status: Ordered Medication Dispense Status: Completed Quantity: 1.0 Unit: each Total Allowed Fills: 1 Fills Dispensed: 0 ACCU-CHEK SOFTCLIX LANCETS MISC ACCU-CHEK SOFTCLIX LANCETS MISC, See Instructions, # 100 Unknown, 5 Refills, USE TO TEST BLOOD GLUCOSE THREE TIMES A DAY, 166.4, cm, 08/21/20 7:52:00 EDT, Height Start Date: 10/05/20 Status: Ordered Medication Dispense Status: Completed Quantity: 100.0 Unit: Unknown Total Allowed Fills: 1 Fills Dispensed: 0 Albuterol (Eqv-ProAir HFA) 90 mcg/inh inhalation aerosol 1 puffs, Inhalation, 4 times a day, # 25.5 Unknown, 3 Refills, Maintenance, 08/21/23 12:24:00 PM EDT, [facility], 150, INHALE ONE PUFF BY MOUTH FOUR TIMES A DAY, 166.4, cm, 08/19/23 19:12:00 EDT, Height Start Date: 08/21/23 Status: Ordered Medication Dispense Status: Completed Quantity: 25.5 Unit: Unknown Total Allowed Fills: 1 Fills Dispensed: 0 atorvastatin 20 mg oral tablet 1 tablet, By Mouth, Daily, # 90 tablet, 1 Refills, Maintenance, 11/08/24 1:34:00 PM EDT, [facility], 166.4, cm, 09/14/24 10:43:00 EDT, Height Start Date: 11/08/24 Status: Ordered Medication Dispense Status: Completed Quantity: 90.0 Unit: tablet Total Allowed Fills: 2 Fills Dispensed: 0 Indications: Type 2 diabetes mellitus without complications; Pure hypercholesterolemia, unspecified; Diabetic Shoes Diabetic Shoes, See Instructions, # 1 each, Refills 0, Tot. Refills 0, Maintenance, E11.9, 06/05/18 2:31:36 PM EST, Compound Start Date: 06/05/18 Status: Ordered Medication Dispense Status: Completed Quantity: 1.0 Unit: each Total Allowed Fills: 1 Fills Dispensed: 0 doxycycline hyclate 100 mg oral capsule 1 capsule = 100 mg, By Mouth, 2 times a day, # 20 capsule, 0 Refills, Maintenance, 01/27/25 8:46:00 AM EDT, Capsule, [facility], Partial fill upon patient request if the prescriptionis for a schedule II opioid drug., 166.4, cm, 01/27/25 8:33:00 EDT, Height Start Date: 01/27/25 Status: Ordered Medication Dispense Status: Completed Quantity: 20.0 Unit: capsule Total Allowed Fills: 1 Fills Dispensed: 0 Flovent HFA 44 mcg/inh inhalation aerosol See Instructions, INHALE TWO PUFFS BY MOUTH TWICE A DAY, # 10.6 Gm, 5 Refills, Maintenance, :12:00 PM EDT, [facility], 166.4, cm, 02/26/24 12:45:00 EDT, Height Start Date: 02/26/24 Status: Ordered Medication Dispense Status: Completed Quantity: 10.6 Unit: g Total Allowed Fills: 1 Fills Dispensed: 0 Flovent HFA 44 mcg/inh inhalation aerosol 2 puffs, Inhalation, 2 times a day, # 10.6 Gm, 5 Refills, 10/28/22 7:59:00 AM EDT, [facility], 166.4, cm, 09/30/22 11:10:00 EDT, Height Start Date: 10/28/22 Status: Ordered Medication Dispense Status: Completed Quantity: 10.6 Unit: g Total Allowed Fills: 6 Fills Dispensed: 0 Freestyle Lancets See Instructions, # 600 each, Refills 4, Tot. Refills 4, Maintenance, use as directed to test bloodsugar 2 x day dx- type 2 E11.44 please dispense 90 day supply, 01/16/21 2:47:00 PM EDT, Supply, 166.4, cm, 01/08/21 13:17:00 EDT, Height Start Date: 01/16/21 Stop Date: 04/11/22 Status: Ordered Medication Dispense Status: Completed Quantity: 600.0 Unit: each Total Allowed Fills: 5 Fills Dispensed: 0 Freestyle Lite Monitor See Instructions, # 1 kit, Maintenance, Check BS twice daily for T2DM, 06/08/21 3:12:00 PM EST, Supply, 166.4, cm, 01/31/21 11:48:00 EDT, Height Start Date: 06/08/21 Status: Ordered Medication Dispense Status: Completed Quantity: 1.0 Unit: kit Total Allowed Fills: 1 Fills Dispensed: 0 Indications: Carpal tunnel syndrome, right upper limb; Type 2 diabetes mellitus without complications; Essential (primary) hypertension; Freestyle Lite Test Strips See Instructions, # 200 each, Refills 4, Tot. Refills 4, Maintenance, use as directed to test bloodsugar 2 x day dx- type 2 E11.44 please dispense 90 day supply, 01/16/21 2:43:00 PM EDT, Compound, 166.4, cm, 01/08/21 13:17:00 EDT, Height Start Date: 01/16/21 Status: Ordered Medication Dispense Status: Completed Quantity: 200.0 Unit: each Total Allowed Fills: 5 Fills Dispensed: 0 GlyBURIDE (Eqv-Micronase) 2.5 mg oral tablet 1 tablet, By Mouth, 2 times a day, # 180 tablet, 3 Refills, Maintenance, 02/26/24 1:13:00 PM EDT, [facility], 166.4, cm, 02/26/24 12:45:00 EDT, Height Start Date: 02/26/24 Status: Ordered Medication Dispense Status: Completed Quantity: 180.0 Unit: tablet Total Allowed Fills: 4 Fills Dispensed: 0 left hand wrist splint with velcro left hand wrist splint with velcro, See Instructions, # 1 each, Refills 0, Tot. Refills 0, Maintenance, DX: carpal tunnel syndrome G56.00 Length of need 99 month, 06/13/21 8:11:00 AM EST, Supply, 166.4, cm, 01/31/21 11:48:00 EDT, Height Start Date: 06/13/21 Status: Ordered Medication Dispense Status: Completed Quantity: 1.0 Unit: each Total Allowed Fills: 1 Fills Dispensed: 0 lisinopril 10 mg oral tablet 10 mg, 1, tablet, By Mouth, Daily, # 90 tablet, Refills 3, Tot. Refills 3, Maintenance, 06/08/25 5:35:00 PM EST, Route to Pharmacy Electronically, [facility], Partial fill upon patient request if the prescription is for a schedule II opioid drug., 166.4, cm, 09/14/24 10:43:00 EDT, Height Start Date: 06/08/25 Stop Date: 06/03/26 Status: Ordered Medication Dispense Status: Completed Quantity: 90.0 Unit: tablet Total Allowed Fills: 4 Fills Dispensed: 0 lisinopril 10 mg oral tablet 10 mg, 1, tablet, By Mouth, Daily, for 30 days, # 30 tablet, Refills 5, Tot. Refills 5, Hard Stop 06/08/25 5:35:00 PM EST, 12/10/24 5:35:00 PM EDT, Route to Pharmacy Electronically, [facility],Partial fill upon patient request if the prescription is for a schedule II opioid drug., 166.4, cm,09/14/24 10:43:00 EDT, Height Start Date: 12/10/24 Stop Date: 06/08/25 Status: Ordered Medication Dispense Status: Completed Quantity: 30.0 Unit: tablet Total Allowed Fills: 6 Fills Dispensed: 0 metFORMIN 500 mg oral tablet See Instructions, TAKE TWO TABLETS BY MOUTH EVERY MORNING AND TAKE TWO TABLETS BY MOUTH IN THE AFTERNOON, # 360 tablet, 3 Refills, Maintenance, 02/26/24 1:11:00 PM EDT, [facility], 166.4, cm, 02/26/24 12:45:00 EDT, Height Start Date: 02/26/24 Status: Ordered Medication Dispense Status: Completed Quantity: 360.0 Unit: tablet Total Allowed Fills: 4 Fills Dispensed: 0 metoprolol 25 mg oral tablet See Instructions, 1 tablet By Mouth in morning and half tablet in evening, # 45 tablet, Refills 5, Tot. Refills 5, Maintenance, 01/24/25 12:20:00 PM EDT, Instructions Replace Required Details, Route to Pharmacy Electronically, [facility], Partial fill upon patient request if the prescription is for a schedule II opioid drug., 166.4, cm, 09/14/24 10:43:00 EDT, Height Start Date: 01/24/25 Status: Ordered Medication Dispense Status: Completed Quantity: 45.0 Unit: tablet Total Allowed Fills: 6 Fills Dispensed: 0 one folding walking cane one folding walking cane, See Instructions, # 1 each, Refills 0, Tot. Refills 0, Maintenance, one folding walking cane use as directed DX osteoarthritis with diabetic neuropathy ICD 10 M19.90 E11.40 Length of need lifetime Height 166.4cm Weight: 99.3 kg, 06/14/22 10:22:00 AM EST, Supply Start Date: 06/14/22 Status: Ordered Medication Dispense Status: Completed Quantity: 1.0 Unit: each Total Allowed Fills: 1 Fills Dispensed: 0 ONETOUCH VERIO STRP ONETOUCH VERIO STRP, See Instructions, # 100 Unknown, 5 Refills, Maintenance, USE TO TEST SUGARS DAILY, 01/02/23 10:19:00 AM EDT, 166.4, cm, 09/30/22 11:10:00 EDT, Height Start Date: 01/02/23 Status: Ordered Medication Dispense Status: Completed Quantity: 100.0 Unit: Unknown Total Allowed Fills: 1 Fills Dispensed: 0 ONETOUCH VERIO STRP ONETOUCH VERIO STRP, See Instructions, # 100 Unknown, 5 Refills, Maintenance, USE TO TEST SUGARS DAILY, 04/05/24 9:31:00 AM EST, 166.4, cm, 02/26/24 12:45:00 EDT, Height Start Date: 04/05/24 Status: Ordered Medication Dispense Status: Completed Quantity: 100.0 Unit: Unknown Total Allowed Fills: 1 Fills Dispensed: 0 OneTouch Verio Glucose Meter See Instructions, # 1 each, Maintenance, Check sugars daily DX: E11.9, 06/15/21 1:13:00 PM EST, Supply, 166.4, cm, 01/31/21 11:48:00 EDT, Height Start Date: 06/15/21 Status: Ordered Medication Dispense Status: Completed Quantity: 1.0 Unit: each Total Allowed Fills: 1 Fills Dispensed: 0 OneTouch Verio Lancets See Instructions, # 100 each, Refills 5, Tot. Refills 5, Maintenance, one touch verio Lancets test sugars once a day Dx Diabetes ICD 10 E11.9, 04/11/22 3:09:00 PM EST, Supply, 166.4, cm, 01/21/22 13:12:00 EDT, Height Start Date: 04/11/22 Status: Ordered Medication Dispense Status: Completed Quantity: 100.0 Unit: each Total Allowed Fills: 6 Fills Dispensed: 0 OneTouch Verio Test Strips See Instructions, # 100 each, Refills 5, Tot. Refills 5, Maintenance, Test sugars daily DX: E11.9, 06/15/21 1:14:00 PM EST, Supply, 166.4, cm, 01/31/21 11:48:00 EDT, Height Start Date: 06/15/21 Status: Ordered Medication Dispense Status: Completed Quantity: 100.0 Unit: each Total Allowed Fills: 6 Fills Dispensed: 0 Soft Click Lancets See Instructions, # 100 each, Refills 5, Tot. Refills 5, Maintenance, Please dispense Accu-chek brand use to test blood glucose TID E11.9, 08/12/19 5:12:00 PM EDT, Compound, 166.4, cm, 08/04/19 13:06:00 EST, Height Start Date: 08/12/19 Status: Ordered Medication Dispense Status: Completed Quantity: 100.0 Unit: each Total Allowed Fills: 6 Fills Dispensed: 0 Splint See Instructions, # 1 each, Maintenance, Right hand wrist splint with velcro, Dx: Carpal tunnel syndrome, 07/13/21 9:19:00 AM EST, Supply Start Date: 07/13/21 Status: Ordered Medication Dispense Status: Completed Quantity: 1.0 Unit: each Total Allowed Fills: 1 Fills Dispensed: 0 Indications: Carpal tunnel syndrome, unspecified upper limb; Xarelto 20 mg oral tablet 1 tablet = 20 mg, By Mouth, Daily at supper, # 30 tablet, 0 Refills, Maintenance, 02/13/23 7:47:00 AM EDT, Tablet, Partial fill upon patient request if the prescription is for a schedule II opioid drug. Start Date: 02/13/23 Status: Ordered Medication Dispense Status: Completed Quantity: 30.0 Unit: tablet Total Allowed Fills: 1 Fills Dispensed: 0 Problem List Condition Confirmation Course Effective Dates Status H ealth Status Informant Atrial flutter Confirmed Active Non-ischemic cardiomyopathy Confirmed Active Carpal tunnel syndrome, bilateral Confirmed Active Chronic obstructive pulmonary disease Confirmed Active Erectile dysfunction Confirmed Active Essential hypertension Confirmed Active History of prostate cancer Confirmed Active Microalbuminuria due to type 2 diabetes mellitus Confirmed Active Mixed hyperlipidemia Confirmed Active Obesity (BMI 30.0-34.9) Confirmed Active Osteoarthritis Confirmed Active PAF (paroxysmal atrial fibrillation) Confirmed Active Severe aortic stenosis Confirmed Active Severe obesity (BMI 35.0-39.9) with comorbidity Confirmed Active Type 2 diabetes mellitus, controlled Confirmed Active Type 2 diabetes mellitus Confirmed Active 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 Social History Social History Type Response Smoking Status Former smoker, quit more than 30 days ago; Other: Quit in 1997, smoked ofr 8 years; entered on: 02/11/19 Sex Sex Representation Male (finding) Patient Care team information Care Team Personnel Name: James Chris MD Position: [facility] Renal MD Member Role: Lifetime Consulting Physician Address: [address] [place] [address] [address] [facility] [address]- [place] Telecom: Name: Temo Arrington RN Position: [facility] RN Member Role: Primary Care Nurse Name: Jose Enrique Almanzar MD Position: [facility] Renal MD Member Role: Lifetime Consulting Physician Address: [address] [place] [address] [address] [facility] [place] [place] [address]- Telecom: Name: Em Tam MD Position: [facility] Physician - Primary Care Member Role: PCP Address: [address] [place] [address] Adult [facility] [place] [address]- [place] Tele[employer]: Name: Hanna Yousif Position: [facility] Outreach Member Role: Lifetime Consulting Physician Care Team Related Persons Name: MARGARET RUBIO Name: VARUN MEDRANO Name: MARGARET MEDRANO Insurance Providers Guarantor name: JASON MEDRANO Health Plan Information #: 1 Payer: [facility] ADVANTAGE O Payer Identifier: NA Member Number: [id number] Group Number: [id number] Subscriber Identifier: NA Relationship to Subscriber: self Coverage Type: NA Coverage Verification Date: NA Telecom: NA Address: NA
--- OUTSIDE RECORDS SUMMARY | 2025-01-28 23:59 | XMS_ITS | Continuity of Care Document ---
Author Organization [facility] [place] Address [address] [place] [id number]- Care Team Providers Care Route Rider Name Role Phone Yonatan ROE, Em Primary Care Physician Encounter [facility] Date(s): 12/29/24 - 01/28/25 [facility] [place] Adult [address] [place] [address]- Encounter Type: Triage Allergies, Adverse Reactions, Alerts [...] vaccine, inactivated 2 03/04/09 Gi fer SARS-CoV-2(COVID-19)mRNA-LNP vac([id number]) 03/01/24 Recorded pneumococcal 20-valent conjugate vaccine 02/25/23 Recorded SARS-CoV-2(COVID-19)mRNA-LNP vac([id number]) 02/16/23 Recorded [id number] 12y+ bivalent booster vax 02/18/22 Recorded SARS-CoV-2 mRNA ([id number]) vax 09/08/21 Recorded SARS-CoV-2 (COVID-19) mRNA BNT-162b2 [...] Given 1[facility] Comment: [facility]21/2015] [facility] 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/2009 3Result Comment: [facility] [id number] 4Admin Note: 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 Sanofi Pasteur no contraindications 5Admin Note: 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 Sanofi Pasteur no contraindications 6Admin Note: Manufactured by [employer] Distributed by [email or web address] EXP 10/2010 Medications 1 cane aluminum adjustable [...] Refills, Maintenance, :12:00 PM EDT, [facility], 166.4, cm, 02/26/24 12:45:00 EDT, Height Start Date: 02/26/24 Status: Ordered Medication Dispense Status: Completed Quantity: 10.6 Unit: g Total Allowed Fills: 1 Fills Dispensed: 0 Flovent HFA 44 mcg/inh inhalation aerosol 2 puffs, Inhalation, 2 times a day, # 10.6 Gm, 5 Refills, 10/28/22 7:59:00 AM EDT, [facility], 166.4, cm, 09/30/22 11:10:00 EDT, [...] EST, Route to Pharmacy Electronically, [facility], Partial fill upon patient request [...] Team Personnel Name: James Chris MD Position: [facility] Renal MD Member Role: Lifetime Consulting Physician Address: [address] [place] [address] [address] [place] [address]- [place] Telecom: Name: Temo Arrington RN Position: [facility] RN Member Role: Primary Care Nurse Name: Jose Enrique Almanzar MD Position: [facility] Renal MD Member Role: Lifetime Consulting Physician Address: [address] [place] [address] [address] [facility] [place] [address]- Telecom: Name: Em Tam MD Position: [facility] Physician - Primary Care Member Role: PCP Address: [address] [place] [address] Adult [facility] [place] [address]- [place] Telecom: Name: Hanna Yousif Position: [facility] Outreach Member Role: Lifetime Consulting Physician Care Team Related Persons Name: MARGARET RUBIO Name: VARUN MEDRANO Name: MARGARET MEDRANO Insurance Providers Guarantor name: JASON MEDRANO Health Plan Information #: 1 Payer: [facility] ADVANTAGE O Payer Identifier: NA Member Number: [id number] Group Number: [id number] Subscriber Identifier: NA Relationship to Subscriber: self Coverage Type: NA Coverage Verification Date: NA Telecom: NA Address: NA
--- OUTSIDE RECORDS SUMMARY | 2025-02-02 07:14 | XMS_ITS | Clinical Summary ---
Author Organization [address] [place] [address] [place] [phone] Phone Care Team Providers Care Broadcasting Equipment Mechanic Name Role Phone Em Tam MD Primary Care Provider [phone] Allergies Active Allergy Reactions Criticality Noted Date Comments Iodinated Contrast Media 08/06/2023 Olmesartan 06/12/2021 Medications albuterol HFA (PROAIR HFA ; PROVENTIL HFA ; VENTOLIN HFA) 90 mcg/actuation inhaler INHALE ONE PUFF BY MOUTH FOUR TIMES A DAY NEEDED FOR WHEEZING 07/24/19 21 Active atorvastatin (LIPITOR) 20 mg tablet Take 20 mg by mouth. 10/03/19 21 Active glyBURIDE (DIABETA) 2.5 mg tablet Take 1 tablet (2.5 mg total) by mouth 2 (two) times a day with meals. 09/26/19 21 Active lisinopriL (PRINIVIL,ZESTRI L) 5 mg tablet 2 tablets (10 mg total). 03/24/20 21 Active metFORMIN (GLUCOPHAGE) 500 mg tablet Take 2 tablets (1,000 mg total) by mouth 2 (two) times a day with meals. 07/27/19 21 Active multivit-min/iro n/folic acid/K (ADULTS MULTIVITAMIN ORAL) Multiple Vitamins-Respiratory Care Assistant als (Multivitamin Adult) Chew Tab Take by mouth. Active Xarelto 20 mg tablet TAKE 1 TABLET BY MOUTH IN THE EVENING 90 tablet 3 06/07/19 25 Active metoprolol tartrate (LOPRESSOR) 25 mg tablet Take 0.5 tablets (12.5 mg total) by mouth 2 (two) times a day. 90 tablet 3 06/24/19 25 Active ubidecarenone (CO Q-10 ORAL) Take 100 mg by mouth 1 (one) time each day. Active fluticasone-umec lidinium-vilante rol (Trelegy Ellipta) 200-62.5-25 mcg inhaler Inhale 1 puff (200 mcg total) by mouth 1 (one) time each day. Rinse mouth with water after use to reduce aftertaste and incidence of candidiasis. Do not swallow. Active doxycycline hyclate (VIBRA-TABS) 100 mg tablet Take 1 tablet (100 mg total) by mouth 2 (two) times a day. Take with a full glass of water and do not lie down for at least 30 minutes after. Active lisinopriL (PRINIVIL,ZESTRI L) 2.5 mg tablet Take 1 tablet (2.5 mg total) by mouth 1 (one) time each day. 025 Discontinu ed(Discont inued by another clinician) Active Problems Problem Noted Date Diagnosed Date Nonischemic cardiomyopathy (CMS/HCC V24, CMS/HCC V28) 01/01/2023 Overview (05/13/2024): - [...] lisinopril at current dose Typical atrial flutter (CMS/HCC V24, CMS/HCC V28 ) 01/01/2023 Overview (05/13/2024): - Status [...] atorvastatin 20 mg at bedtime Nephropathy, diabetic ([facility] V24, [facility] V28) 12/14/2021 Obesity 12/14/2021 Osteoarthritis 12/14/2021 PUD [...] this in mind. Type 2 diabetes mellitus ([facility] V24, [facility] V 28) 06/11/2021 Malignant neoplasm of prostate ([facility] V24, [facility] V28) 01/22/2013 Overview (04/08/2024): prostatectomy 03/14 Encounters Date Type Department Care Team Description 01/28/2025 Telephone [facility] [address] [facility] [address] [place] [phone] Cecilia Childs MD 11/24/2024 Telephone [facility] [address] [facility] [address] [place] [phone] Goldie Emerson MA 11/16/2024 7:40 AM EDT Office Visit [facility] [address] [facility] [address] [place] [phone] Caleb Barton NP Essential hypertension (Primary Dx); Mixed hyperlipidemia; Nonischemic cardiomyopathy ([facility] V24, [facility] V28); Nonrheumatic aortic valve stenosis; Typical atrial flutter ([facility] V24, [facility] V28) 11/08/2024 Telephone [facility] [address] [facility] [address] [place] [phone] Cecilia Childs MD from Last 3 Months Surgical History Surgery Date Site/Laterality Comments OTHER SURGICAL HISTORY Right PROCEDURE: HISTORY OTHER; COMMENT: quadriceps tendon rupture Medical History Medical History Date Comments Essential hypertension DX:Essent ial hypertension Hyperlipidemia DX:Hyperlipidemi a Diabetes mellitus type 2, co ntrolled, with complications ([facility] V24, [facility] V28) DX:Diabetes mellitus type 2, controlled, with complications ([facility]) Asthma DX:Asthma Cancer of prostate ([facility] V24, [facility] V28) DX:Cancer of prostate ([facility]) Carpal tunnel syndrome on right DX:Carpal tunnel syndrome on right Carpal tunnel syndrome, bilateral DX:Carpal tunnel syndrome, bilateral Constipation DX:Constipation ED (erectile dysfunction) DX:ED (erectile dysfunction) Essential (primary) hypertension DX:Essential (primary) hypertension Obesity (BMI 30.0-34.9) DX:Obesi ty (BMI 30.0-34.9) Orthopnea DX:Orthopnea Osteoarthritis DX:Osteoarthriti s PUD (peptic ulcer disease) DX:PU D (peptic ulcer disease) Type 2 diabetes mellitus ( S/[facility] V24, [facility] V28) DX:Type 2 diabetes mellitus (HCC); COMMENT: controlled wound infection ARF (acute renal failure) ([facility] V24) DX:ARF (acute renal failure) ([facility]) Family History Medical History Relation Name Comments [...] Description 02/22/2025 8:00 AM EDT Ancillary Procedure [facility] [address] [place] [address] Health Maintenance Due Date Last [...] COVID-19 Vaccine (8 - Pfizer risk season) 2025 03/01/2024, 02/16/2023, 02/18/2022, Additional history exists Influenza [...] Specimen Status Report Comment [facility] 1 Comment: Gordon Pryor LP Default Gordon Pryor LP Default A hand-written panel/profile was received from your office. In accordance with the [facility] Ambiguous Test Code Policy dated November 2002, we have completed your order by using the closest currently or formerly recognized AMA panel. We have assigned Lipid Panel, Test Code #[id number] to this request. If this is not the testing you wished to receive on this specimen, please contact the [facility] Client Inquiry/Technical Services Department to clarify the test order. We appreciate your business. 11/18/2024 8:24 AM EDT 11/18/2024 Narrative [facility] 1 - 11/19/2024 4:06 AM EDT Performed at: 01 - [facility] [id number] Networking Technology Instructor: Rachana Norman MD, Phone: [phone] Caleb Barton NP LAB BLOOD ORDERABLES Final Resul t Performing Organization Address [facility] de Phone Number [facility] * LDL cholesterol, direct (11/18/2024 8:24 AM EDT) LDL Chol. (Direct) 83 0 - 99 mg/dL [facility] 1 11/18/2024 8:24 AM EDT 11/18/2024 Narrative [facility] 1 - 11/19/2024 5:06 AM EDT Performed at: - [facility] [id number] Networking Technology Instructor: Rachana Norman MD, Phone: [phone] Caleb Barton NP LAB BLOOD ORDERABLES Final Resul t Performing Organization Address [facility] Co de Phone Number [facility] * [...] 4:06 AM EDT Performed at: 01 - [facility] [address] [id number] Networking Technology Instructor: Rachana Norman MD, Phone: [phone] us Caleb Barton NP LAB BLOOD ORDERABLES Final Resul t [facility] 1 from Last 3 Months Insurance [facility] [place] [id number] [employer] MEDICARE Advance Directives Documents on File Type Date Recorded 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 Equipment 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
--- OUTSIDE RECORDS SUMMARY | 2025-02-02 07:14 | XMS_ITS | Patient Health Record ---
Author Organization [facility] Address [address] [place] [address] Care Team Providers Care Neonatal Icu Coordinator Name Role Phone eHma Kelly Primary Care Provider Cyndi HernandezYokastae Unavailable [phone] Allergies Allergen (clinical drug ingredient) Drug/Non Drug Allergy documented on EMR Reaction Allergy Type Onset Date Status Iodinated contrast media (substance) Iodinated Diagnostic Agents Unknown Drug Allergy Active Results Component Value Reference Range Notes HEMOGLOBIN A1C (GLYCOHEMOGLO BIN) Reviewed date:07/06/2024 01:48:06 PM Interpretation: Performing Lab: Notes/Report: HEMOGLOBIN A1C % (HH) 6.3 HEMOGLOBIN A1C (GLYCOHEMOGLO BIN) Reviewed date:04/23/2024 01:13:54 PM Interpretation: Performing Lab: Notes/Report: TOTAL HEMOGLOBIN (HGBA1C) 6.3 HEMOGLOBIN A1C (GLYCOHEMOGLO BIN) Reviewed date:01/12/2025 01:04:47 PM Interpretation: Performing Lab: Notes/Report: HEMOGLOBIN A1C % (HH) 6.2 Reason For Referral No Information Medications Medication SIG (Take, Route, Frequency, Duration) Notes Start Date End Date Status zzzExtra Depth Orthopedic Shoes (1 Pair) with Customized Heat Molded Multidensity Innersoles (3 Pair) . . . Dx: NIDDM/Polyneuropathy (E11.42), Hammertoe Foot Deformity (M20.41,M20.42), Preulcerative Skin Lesion(s) (L85.1); Duration: . 07/28/2015 Not-Taking Clotrimazole-Betamethason e 1-0.05 % 1 application Externally Twice a day; Duration: 30 days Active Voltaren 1 % as directed Externally 01/30/2024 Active Atorvastatin Calcium Active Clotrimazole-Betamethason e 1-0.05 % 1 application Externally Twice a day; Duration: 30 days 02/01/2022 Not-Taking Extra Depth Orthopedic Shoes (1 Pair) with Customized Heat Molded Multidensity Innersoles (3 Pair) as directed Dx: NIDDM/Polyneuropathy (E11.42), Hammertoe Foot Deformity (M20.41,M20.42), Preulcerative Skin Lesion(s) (L85.1 06/11/2018 Not-Taking Lisinopril Active Lisinopril 10 MG 1 tablet Orally Once a day; Duration: 30 day(s) Not-Taking Xarelto Active amLODIPine Besylate 5 MG 1 tablet Orally Once a day Not-Taking Extra-Depth Diabetic Shoes with 3 Pair Custom heat-molded multi-density innersoles . for 1 year . Dx:hallux limitus and hammertoes; Duration: . 04/21/2014 Not-Taking Loprox Not-Taking Metformin & Diet Manage Prod Active glyBURIDE 2.5 MG Orally Act clive Diabetic Insoles Act clive Metoprolol Tartrate 25 MG Oral; Duration: 90 Days Active Hydrocortisone 2.5 % as directed Externa lly to feet Twice a day; Duration: 30 days PRN Active Immunizations Vaccine Route Administration Date Status Comme nts Influenza Unknown 03/16/2015 Administered Influenza Unknown 04/02/2016 Administered Influenza Unknown 02/07/2017 Administered Influenza Unknown 03/01/2018 Administered Influenza Unknown 03/01/2019 Administered Influenza Unknown 02/18/2020 Administered Influenza Unknown 03/27/2023 Administered Influenza Unknown 03/02/2024 Administered COVID-19 Pfizer BioNTech Vaccine Unknown 09/08/2021 Administered first dose:07/11/2020 second dose:08/01/2020 drylwdk49/03/22 Social History Tobacco Use: Social History Observation [...] Problem Acquired hammer toe of right foot (5017935069969699 ) Other hammer toe(s) (acquired), right foot (M20.41) Active confirmed Problem Acquired hammer toe of left foot ([id number] ) Other hammer toe(s) (acquired), left foot (M20.42) Active confirmed Problem Polyneuropathy due to type 2 diabetes mellitus (732610902) Type 2 diabetes mellitus with diabetic polyneuropathy (E11.42) Active confirmed Vital Signs Blood pressure diastolic 80 mm Hg 01/12/2025 Height 5 ft 6 in in 01/12/2025 Blood pressure systolic 121 mm Hg 01/12/2025 Weight 210 lbs 01/12/2025 BMI 33.89 kg/m2 01/12/2025 Procedures Procedure Date Ordered Date Performed Result Body Sit e 69880-IUOCDBB NAIL, 6 OR MORE 04/23/2024 N/A 19865-CFCV SKIN LESIONS, OVER 4 04/23/2024 N/A 71850-UWVSFWJ NAIL, 6 OR MORE 07/06/2024 N/A 80664-NNZC SKIN LESIONS, OVER 4 07/06/2024 N/A 11881-GFFWNMH NAIL, 6 OR MORE 10/12/2024 N/A 20360-YUJQ SKIN LESIONS, OVER 4 10/12/2024 N/A 71521-EHMPSAH NAIL, 6 OR MORE 01/12/2025 N/A 56250-HZWI SKIN LESIONS, OVER 4 01/12/2025 N/A [facility]counters [facility] [address] [facility] Martha Black Type 2 diabetes mellitus with diabetic polyneuropathy E11.42 ; Tinea unguium B35.1 and Tinea pedis of both feet B35.[address] [address] 07/06/2024 Martha Black Type 2 diabetes mellitus with diabetic polyneuropathy E11.42 ; Tinea unguium B35.1 and Tinea pedis of both feet B35.3 [facility] [address] [place] [address] 10/12/2024 Martha Black Type 2 diabetes mellitus with diabetic polyneuropathy E11.42 ; Tinea unguium B35.1 and Tinea pedis of both feet B35.3 [facility] [address] [place] [address] 01/12/2025 Martha Black Type 2 diabetes mellitus with diabetic polyneuropathy E11.42 ; Other hammer toe(s) (acquired), right foot M20.41 ; Tinea unguium B35.1 ; Tinea pedis of both feet B35.3 and Other hammer toe(s) (acquired), left foot M20.[address] [address] 02/03/2024 Martha Black [address] [address] 05/28/2024 Martha Black Tinea pedis of both feet B35.[address] [address] 07/16/2024 Martha Black [address] [address] 09/09/2024 Martha Black Tinea pedis of both feet B35.[address] [address] 01/12/2025 Martha Black Assessments Encounter Date Diagnosis (ICD Code) Assessment Notes Treatment Notes Treatment Clinical Notes Section Notes 04/23/2024 Tinea unguium (ICD-10 - B35.1) 04/23/2024 Type 2 diabetes mellitus with diabetic polyneuropathy (ICD-10 - E11.42) 05/28/2024 Tinea pedis of both feet (ICD-10 - B35.3) 07/06/2024 Type 2 diabetes mellitus with diabetic polyneuropathy (ICD-10 - E11.42) 09/09/2024 Tinea pedis of both feet (ICD-10 - B35.3) 10/12/2024 Type 2 diabetes mellitus with diabetic polyneuropathy (ICD-10 - E11.42) 01/12/2025 Other hammer toe(s) (acquired), right foot (ICD-10 - M20.41) Patient Educated with: DIABETIC FOOT CARE INSTRUCTIONS. pdf (DIABETIC FOOT CARE INSTRUCTIONS. pdf) 01/12/2025 Type 2 diabetes mellitus with diabetic polyneuropathy (ICD-10 - E11.42) 01/12/2025 Tinea unguium (ICD-10 - B35.1) 10/12/2024 Tinea unguium (ICD-10 - B35.1) 07/06/2024 Tinea unguium (ICD-10 - B35.1) 07/06/2024 Tinea pedis of both feet (ICD-10 - B35.3) 04/23/2024 Tinea pedis of both feet (ICD-10 - B35.3) 10/12/2024 Tinea pedis of both feet (ICD-10 - B35.3) 01/12/2025 Tinea pedis of both feet (ICD-10 - B35.3) 01/12/2025 Other hammer toe(s) (acquired), left foot (ICD-10 - M20.42) Plan Of Treatment Pending Test Test Name Order Date 98561-TZULEJN NAIL, 6 OR MORE 03/26/2011 01249-RJYCBMI NAIL, 6 OR MORE 07/18/2011 66038-JSBKKMU NAIL, 6 OR MORE 09/27/2011 73019-OFPRLFD NAIL, 6 OR MORE 12/20/2011 18115-CWIXGPN NAIL, 6 OR MORE 02/28/2012 27666-HIOIIWE NAIL, 6 OR MORE 06/26/2012 32721-WVNYDNA NAIL, 6 OR MORE 09/04/2012 09119-FIBYWGO NAIL, 6 OR MORE 11/19/2012 33248-JUZKESG NAIL, 6 OR MORE 01/26/2013 48931-PWBQJID NAIL, 6 OR MORE 04/22/2013 94576-DZXBOPS NAIL, 6 OR MORE 07/22/2013 02348-FJHKFHY NAIL, 6 OR MORE 10/19/2013 89372-BNIVWAT NAIL, 6 OR MORE 12/31/2013 43334-YGEDUAI NAIL, 6 OR MORE 04/21/2014 15883-XVYZSQP NAIL, 6 OR MORE 12/27/2014 50036-UBOPCIX NAIL, 6 OR MORE 03/30/2015 54646-XQDRBJD NAIL, 6 OR MORE 07/28/2015 44962-NHQVARG NAIL, 6 OR MORE 11/14/2015 88453-ISWYIBM NAIL, 6 OR MORE 02/27/2016 07492-PJAVZEM NAIL, 6 OR MORE 06/04/2016 34350-DTBYIJY NAIL, 6 OR MORE 09/04/2016 32483-ABPELAZ NAIL, 6 OR MORE 11/27/2016 99564-EVGIYLZ NAIL, 6 OR MORE 02/26/2017 44089-DWHGGAB NAIL, 6 OR MORE 06/04/2017 58863-GLJYKKN NAIL, 6 OR MORE 09/03/2017 32866-GBWKJGA NAIL, 6 OR MORE 12/26/2017 45889-MDIBWAR NAIL, 6 OR MORE 09/11/2018 15319-RQJQJJO NAIL, 6 OR MORE 12/16/2018 50040-NDIKBAX NAIL, 6 OR MORE 03/19/2019 92261-ENOLZNK NAIL, 6 OR MORE 06/22/2019 37992-JSEWISY NAIL, 6 OR MORE 09/21/2019 21175-CMVQAJU NAIL, 6 OR MORE 12/15/2019 95189-QSYMAKO NAIL, 6 OR MORE 03/24/2020 46991-EMCDCWG NAIL, 6 OR MORE 06/30/2020 71516-LISFGXC NAIL, 6 OR MORE 09/29/2020 22636-URFAYOX NAIL, 6 OR MORE 12/29/2020 60811-BFKGMIX NAIL, 6 OR MORE 03/30/2021 01101-NNYQRPY NAIL, 6 OR MORE 07/10/2021 38349-VBDVSXN NAIL, 6 OR MORE 10/16/2021 11648-JTPGRCS NAIL, 6 OR MORE 01/15/2022 37271-EHCBJLE NAIL, 6 OR MORE 04/16/2022 65473-NWEXAAO NAIL, 6 OR MORE 08/02/2022 50084-JUPKUMO NAIL, 6 OR MORE 11/08/2022 51200-OZMQRMX NAIL, 6 OR MORE 02/14/2023 04475-NVIJHZN NAIL, 6 OR MORE 05/09/2023 20835-ZMEPGPC NAIL, 6 OR MORE 08/01/2023 86635-JNDBJWM NAIL, 6 OR MORE 10/31/2023 41388-NGEAJEA NAIL, 6 OR MORE 01/30/2024 82275-IBTQDSD NAIL, 6 OR MORE 07/06/2024 60460-MPYGAMP NAIL, 6 OR MORE 10/12/2024 19709-UOFFIAI NAIL, 6 OR MORE 04/23/2024 88500-PZRALFJ NAIL, 6 OR MORE 01/12/2025 68639-Cmhvhznx Plate 11/27/2016 63750-Duqbfbvd Plate 12/27/2014 71958-Pxcmjmgh Plate 04/21/2014 36431-Vbiuksbx Plate 12/31/2013 99183-Kmtzoolo Plate 10/19/2013 26036-Tklorbik Plate 07/22/2013 03356-GFIP SKIN LESIONS, OVER 4 10/20/19 14 67752-FYYL SKIN LESIONS, OVER 4 07/22/19 14 28691-FPYJ SKIN LESIONS, OVER 4 04/22/20 13 36243-KHNC SKIN LESIONS, OVER 4 01/01/20 14 19876-LTGX SKIN LESIONS, OVER 4 04/21/20 14 34637-BFRF SKIN LESIONS, OVER 4 12/28/19 15 94106-WERM SKIN LESIONS, OVER 4 03/30/20 15 30119-QXQH SKIN LESIONS, OVER 4 01/27/20 13 13074-HSBC SKIN LESIONS, OVER 4 11/20/19 13 73423-HXOJ SKIN LESIONS, OVER 4 09/05/19 13 34834-RZNP SKIN LESIONS, OVER 4 06/26/19 13 03098-MNFV SKIN LESIONS, OVER 4 02/28/20 12 17364-HJOT SKIN LESIONS, OVER 4 12/20/19 12 11450-HMBW SKIN LESIONS, OVER 4 09/27/19 12 15651-CDTY SKIN LESIONS, OVER 4 03/24/20 20 10329-QZJF SKIN LESIONS, OVER 4 12/15/19 20 19014-OPXT SKIN LESIONS, OVER 4 09/21/19 20 67180-TWID SKIN LESIONS, OVER 4 06/22/19 20 99360-IOYX SKIN LESIONS, OVER 4 03/19/20 19 26716-EMJI SKIN LESIONS, OVER 4 12/17/19 19 83395-GVIZ SKIN LESIONS, OVER 4 09/12/19 19 94172-IPRU SKIN LESIONS, OVER 4 12/27/19 18 24422-YDMN SKIN LESIONS, OVER 4 09/04/19 18 35858-TMVG SKIN LESIONS, OVER 4 06/04/19 18 92646-PELY SKIN LESIONS, OVER 4 02/27/20 17 84133-FGPT SKIN LESIONS, OVER 4 09/05/19 17 80066-PKPG SKIN LESIONS, OVER 4 11/28/19 17 57373-TCIT SKIN LESIONS, OVER 4 06/04/19 17 90876-KBRP SKIN LESIONS, OVER 4 02/27/20 16 82866-HDUL SKIN LESIONS, OVER 4 11/14/19 16 74218-PTGE SKIN LESIONS, OVER 4 07/28/19 16 22294-WHDH SKIN LESIONS, OVER 4 07/06/19 25 08390-GJGY SKIN LESIONS, OVER 4 10/13/19 25 18882-YRBH SKIN LESIONS, OVER 4 01/13/20 25 01787-BFWE SKIN LESIONS, OVER 4 04/23/20 24 11040-MEMZ SKIN LESIONS, OVER 4 01/30/20 24 42236-OIEG SKIN LESIONS, OVER 4 10/31/19 24 29575-QXHX SKIN LESIONS, OVER 4 08/01/19 24 50257-RUGN SKIN LESIONS, OVER 4 05/09/20 23 98292-DGUP SKIN LESIONS, OVER 4 02/15/20 23 08480-EPZO SKIN LESIONS, OVER 4 11/09/19 23 40544-DDUP SKIN LESIONS, OVER 4 08/03/19 23 14889-DVET SKIN LESIONS, OVER 4 04/16/20 22 33616-FXSL SKIN LESIONS, OVER 4 01/16/20 22 84500-MOJL SKIN LESIONS, OVER 4 10/17/19 22 98497-LIXH SKIN LESIONS, OVER 4 07/10/19 22 99914-DBMU SKIN LESIONS, OVER 4 03/30/20 21 63609-VIFS SKIN LESIONS, OVER 4 12/30/19 21 86119-VKKG SKIN LESIONS, OVER 4 09/30/19 21 92281-RKII SKIN LESIONS, OVER 4 06/30/19 21 12509-KDUQ SKIN LESION 07/18/2011 66525- Removal of Foreign Body, Subcut 1 07/25/2010 Next Appt Details Provider Name:Martha Pena David , 04/20/2025 09:15:00 AM, [address] [place] [address] Jose, [place], [address], Insurance Providers Payer Name Payer Address Payer Phone Subscriber Number Group Number Insured Name Patient Relationship to Insured Coverage Start Date Coverage End Date [employer] Medicare-[id number] [address] [place] [address] [id number] Anastacio Hannon Self - patient is the insured Medical (General) History Medical History History ICD Code osteoporosis mumps measles hypertension diabetic chicken pox cataracts Primary osteoarthritis, left ankle and f oot M19.072 Other hammer toe(s) (acquired), right fo ot M20.41 Other hammer toe(s) (acquired), left ish t M20.42 Hallux rigidus of left foot M20.22 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
--- OUTSIDE RECORDS SUMMARY | 2025-02-02 07:15 | XMS_ITS | Clinical Summary ---
Author Organization [facility] Address [address] [place] [address] Care Team Providers Care Dope And Fabric Worker Name Role Phone Rebecca Barros Primary Care Provider [phone] Allergies No known active allergies Medications Medication [...] age to complete this topic Care Teams Dope And Fabric Worker Relationship Specialty Start Date End Date Rebecca Barros PA [address] [facility] [address] PCP - General Physician Disc Pad Grinder 09/17/17
--- OUTSIDE RECORDS SUMMARY | 2025-02-02 07:15 | XMS_ITS | Encounter Summary ---
Author Organization [facility] Address [address] [place] [address] Care Team Providers Care Lithographic Press Feeder Name Role Phone Em Tam MD Primary Care Provider [phone] Reason for Visit * Reason Onset Date Comments Med Dose Change 01/28/2025 Encounter Details Date Type Department Care Team (Late st Contact Info) Description 01/28/2025 Telephone [facility] - [facility] [address] [facility] [address] [place] [address] Cecilia Childs MD [address] [place] [address] [place] [address] Social History Tobacco Use Types Packs/Day Years [...] on file documented as of this encounter Progress Notes * Caleb Barton NP - 01/28/2025 2:52 PM EDT Can we get a copy of the PCP note? * Rupinder Duarte RN - 01/28/2025 2:10 PM EDT Spoke w/pt. Pt sent PCP BP readings for the last month. Pt was unfortunately unable to produce another copy of BP readings. [facility] checked and no scanned document of BP readings. There were messages adjusting his lisinopril to 10 mg daily and they recommended increasing his metoprolol to 25 mg BID. They were concerned that his BP's were consistently >130/90. Pt does not want to adjust the metoprolol until discussing w/cardiology team. He's still taking 12.5 mg BID Metoprolol Tartrate. No missed doses of meds. Denies having any other symptoms. BP at time of call, 131/69. Asked pt to continue checking BP's once daily. Pt states that he takes his am BP meds around 5572-3250, and rechecks around 12 pm. We will f/u next week with more BP readings and will review w/care team. * Rylee Mitchell - 01/28/2025 1:28 PM EDT Patient states he takes Metoprolol 1/2 tab in the morning and 1/2 tab at night. wanted tochange his Metoprolol the dosge to 1 tab in the morning and a 1/2 tab at night due to the bottom numbers of his bood pressure readings being 90. Patient would like to know if Dr. Childs is ok with this. documented in this encounter Plan of Treatment Upcoming Encounters Date Type Department Care Team (Late st Contact Info) Description 02/22/2025 8:00 AM EDT Ancillary Procedure [facility] - [address] [place] [address] documented as of this encounter Visit Diagnoses Not on filedocumented in this encounter Discontinued Medications Medication Sig Discontinue Reason Start Date End Da te lisinopriL (PRINIVIL,ZESTRIL) 2.5 mg tablet Take 1 tablet (2.5 mg total) by mouth 1 (one) time each day. Discontinued by another clinician 01/28/2025 documented as of this encounter Historical Medications * This list may reflect changes made after this encounter. doxycycline hyclate (VIBRA-TABS) 100 mg tablet Take 1 tablet (100 mg total) by mouth 2 (two) times a day. Take with a full glass of water and do not lie down for at least 30 minutes after. fluticasone-umec lidinium-vilante rol (Trelegy Ellipta) 200-62.5-25 mcg inhaler Inhale 1 puff (200 mcg total) by mouth 1 (one) time each day. Rinse mouth with water after use to reduce aftertaste and incidence of candidiasis. Do not swallow. added in this encounter Care Teams Lithographic Press Feeder Relationship Specialty Start Date End Date Em Tam MD [address] [place] [id number] PCP - General Internal Medicine 11/16/24 documented as of this encounter
--- OUTSIDE RECORDS SUMMARY | 2025-02-02 07:15 | XMS_ITS | Clinical Summary ---
Author Organization [facility], Address [address] [facility] [address] [place] [address] Phone Care Team Providers Care Meeting Coordinator Name Role Phone Andriy Sherman MD Primary Care Provider [phone] Allergies Active Allergy Reactions Criticality Noted Date [...] AM EDT) Hemoglobin A1C 6.2(H) (4.0-5.6) % [facility] Comment: MONITORING: In known diabetic patients, hemoglobin A1c targets should be discussed with health care provider. DIAGNOSTIC USE: The [place] Diabetes Association (ADA) and the World Health [...] Supplement 1 Testing performed or reported by [facility], a Service of [facility], [address] [place] [address] Kathrine Pan MD, Tenter Frame Back Tender [facility]# [id number] Blood specimen (specimen) Venous blood / Unknown 02/12/2022 7:39 AM EDT 02/12/2022 9:53 AM EDT us Moustapha Levine MD LAB BLOOD ORDERABLES Final Resul t [facility] from Last 3 Months or Most Recently Relevant to Health Maintenance Insurance [place] D[place] [id number] [facility] [place] [id number] [place] [id number] Care Teams Meeting Coordinator Relationship Specialty Start Date End Date Andriy Sherman MD [address] [place] [phone] PCP - General Family Medicine 03/02/21
[2025-02-02 07:18] VITALS: BP 124/72; PULSE 83; RESP 16; TEMP 36.8; O2SAT 95; BMI 33.7
--- NOTE | 2025-02-02 07:18 | AM.OFFWIN_ITS ---
Intake Vital Signs 02/02/25 07:18 Height 5 ft 6 in Weight 209 lb BMI 33.7 BP 124/72 Blood Pressure Location Rt brachial Position Sitting Respiration 16 Pulse 83 Pulse Source Pulse Oximeter Temp 98.2 F Temp Source Oral Pulse Oximetry (%) 95 Intake Visit Reasons: EP-blood in urine Intake Note: Pt is here today c/o blood in urine Patient Tobacco Use Status: Never used Tobacco Allergies olmesartan Allergy (Verified 02/02/25 07:19) Unknown iv contast Allergy (Uncoded 02/02/25 07:19) Rash HPI HPI Comments History of Present Illness Details History of Present Illness - The patient is an 84-year-old male pre senting with hematuria. - The patient experienced nocturnal sanford turia last night, which resolved after two episodes. - Currently on doxycycline for asthma br onchitis, with no associated dysuria or pain. - The patient is on Xarelto for anticoag ulation. - Previous hematuria episode resolved af ter urological evaluation. - Denies back pain, chest pain, or short ness of breath, but reports slight weakness due to sleep disturbance. - Former smoker, quit 27 years ago. - Bleeding has resolved now and he had n o clots or abd pain. - He denies bruising, melena, bleeding g ums, or vomiting blood. Physical Exam General: Cooperative, healthy appearing, comfortable, no acute distress and well developed Orientation: Patient oriented x3 Respiratory: Normal respiratory effort and able to speak in complete sentences. Clear to auscultation bilaterally Cardiovascular: Regular rate and rhythm. Normal S1 and S2 GI: Normal to inspection. Soft to palpation and nontender, non- distended. No TTP of the 4 quadrants. No guarding or rebound tenderness noted. Negative Louann. Negative Rovsing. Negative CVA tenderness noted. Patient was informed and verbally consented to the use of an ambient scribe for clinic note documentation during this visit. [facility] Medical History Spontaneous rupture of other tendons, right hand Type II diabetes mellitus PUD (peptic ulcer disease) Osteoarthritis Orthopnea Obesity Mixed hyperlipidemia Essential hypertension Erectile dysfunction Constipation ARF (acute renal failure) Mixed hyperlipidemia Bilateral carpal tunnel syndrome Carpal tunnel syndrome, right Cancer of prostate Left knee injury Surgical History H/O left knee surgery History of prostatectomy H/O prostatectomy Family History Brother Lung cancer Mother Diabetes Father Congestive heart failure Anginal pain Social History Household Members: None and Unknown / Unable to assess Housing: House Patient Tobacco Use Status: Never used Tobacco Current occupational status: retired Review of Systems Const All systems reviewed & are unremarkable except as noted in HPI and below Physical Exam Vital Signs: Last Vital Signs Temp 98.2 F 02/02/25 07:18 Pulse 83 02/02/25 07:18 Resp 16 02/02/25 07:18 BP 124/72 02/02/25 07:18 Pulse Ox 95 02/02/25 07:18 BMI result Body Mass Index 33.7 Results AMB Urinalysis, Automated UA Leukoctes 0 Martinez/uL Last Edit by Gayla Brown CMA on 02/02/25 07:29 UA Nitrite Negative Last Edit by Gayla Brown CMA on 02/02/25 07:29 UA Urobilinogen 0.2 mg/dL Last Edit by Gayla Brown CMA on 02/02/25 07:29 UA Protein 30 mg/dL Last Edit by Gayla Brown CMA on 02/02/25 07:29 UA pH 6.0 Last Edit by Gayla Brown CMA on 02/02/25 07:29 UA Blood 200 Andrew/uL Last Edit by Gayla Brown CMA on 02/02/25 07:29 UA Specific [place] 1.015 Last Edit by Gayla Brown CMA on 02/02/25 07:29 UA Ketone Negative Last Edit by Gayla Brown CMA on 02/02/25 07:29 UA Bilirubin 0 mg/dL Last Edit by Gayla Brown CMA on 02/02/25 07:29 UA Glucose 0 mg/dL Last Edit by Gayla Brown CMA on 02/02/25 07:29 Results Reviewed Results Reviewed: Laboratory Last Values Urine pH (Auto) 6.0 02/02/25 07:27 Specific [place] (Auto) 1.015 02/02/25 07:27 Urine Protein (Auto) 30 mg/dL 02/02/25 07:27 Glucose (UA)(Auto) 0 mg/dL 02/02/25 07:27 Urine Ketones (Auto) Negative 02/02/25 07:27 Urine Blood (Auto) 200 Andrew/uL 02/02/25 07:27 Urine Nitrite (Auto) Negative 02/02/25 07:27 Urine Bilirubin (Auto) 0 mg/dL 02/02/25 07:27 Urine Urobilinogen (Auto) 0.2 mg/dL 02/02/25 07:27 Leukocyte Esterase (Auto) 0 Martinez/uL 02/02/25 07:27 Assessment & Plan Assessment & Plan (1) Hematuria: Code(s): R31.9 - Hematuria, unspecified Qualifiers: Hematuria type: benign essential microscopic Qualified Code(s): R31.1 - Benign essential microscopic hematuria Plan Most likely gross hematuria due to infection vs medication reaction vs stone? vs hypercoagulable UA in the office 3+blood- not enough to send for a culture plan - Discontinue doxycycline due to potential side effect causing hematuria. - Inform primary care physician about stopping doxycycline. - Schedule follow-up with urologist for further evaluation and possible diagnostic testing. - Continue Xarelto. - follow up with PCP in 2 weeks for a repeat UA Orders: Orders AMB Urinalysis Automated Today Z13.9 - Encounter for screening, unspecified Coding Level of Care Code Est Pt Level 3 (06019) Diagnoses Benign essential microscopic hematuria R31.1 Hematuria type: benign essential microscopic
== END 2025-02-02 08:31 | disposition home or self-care (01) ==
PROVIDERS: Visit Provider Physician Assistant Medical
DX: R31.1 Benign essential microscopic hematuria (principal); Z13.9 Encounter for screening, unspecified

== ENCOUNTER → 2025-02-02 07:12 | Outpatient (BNVA) | payer MEDICARE, SELFPAY | PROVIDERS: Visit Provider Physician Assistant Medical | DX: R31.1 Benign essential microscopic hematuria (principal) | CPT/HCPCS: 81003; 99212 ==

== ENCOUNTER 2025-05-24 10:53 | Outpatient (REF) | payer MEDICARE, SELFPAY ==
[2025-05-24 14:51] LABS: Resp Syncy Virus RNA Qual PCR NEGATIVE (Negative); SARS COV2 PCR INHOUSE NEGATIVE (Negative)
== END 2025-05-24 10:54 | disposition home or self-care (01) ==
LOC: HO.LAB 10:53
PROVIDERS: Physician Assistant
DX: Z03.818 Encounter for observation for suspected exposure to other biological agents ruled out (principal)
CPT/HCPCS: 87637

== ENCOUNTER 2025-05-24 10:53 | Outpatient (AMB) | payer MEDICARE, SELFPAY ==
--- OUTSIDE RECORDS SUMMARY | 2024-04-02 07:45 | XMS_ITS ---
Author Organization [facility] Address [address] [place] [address] Care Team Providers Care Nutritional Services Cook Name Role Phone Temo Whitley Primary Care Provider Martha Berman [phone] Encounters Encounter Location Date Provider Diagnosis [address] [address] 04/02/2024 Martha Hernandez Plan Of Treatment Next Appt Details Provider Name:Martha Hernandez , 07/27/2025 02:00:00 PM, [address] [place] [place], [address], Progress Notes * Anastacio MEDRANO FDOB:1940 (84 yo M)Acc No.[id number]:04/02/2024 Progress Note Patient: Anastacio RECINOS Provider: Ping Hernandez DPM :1940 A ge:83 Y S ex:Male Date:04/02/2024 Address:[address] [place] [address] Ana Cristina [place]ano [place] Pcp:Temo Whitley Subjective: * Chief Complaints: * * Medical History: Objective: * Vitals: Assessment: Plan: * Treatment: * Images: * The named appointment provid er may or may not be the originator of this progress note, and it is not deemed complete until electronically signed by the appointment provider. Sign off status: Pending * Provider: Ping Hernandez DPM Date: 06/02/2023 Generated for Luz Maria blount/Nehemias/Antony on: 1 07/25/2024 12:13 PM EST
--- OUTSIDE RECORDS SUMMARY | 2025-04-13 09:30 | XMS_ITS ---
Author Organization [facility] Address [address] [place] [address] Care Team Providers Care Machine Packager Name Role Phone Temo Whitley Primary Care Provider Martha Berman [phone] Encounters Encounter Location Date Provider Diagnosis [address] [address] 04/13/2025 Martha Hernandez Plan Of Treatment Next Appt Details Provider Name:Martha Hernandez , 07/27/2025 02:00:00 PM, [address] [facility], [place], [address], Progress Notes * Anastacio MEDRANO FDOB:1940 (84 yo M)Acc No.[id number]:04/13/2025 Progress Note Patient: Anastacio RECINOS Provider: Ping Hernandez DPM :1940 A ge:84 Y S ex:Male Date:04/13/2025 Address:[address] [place] [address] [place] Cristina [id number] Pcp:Temo Whitley Subjective: * Chief Complaints: * * Medical History: Objective: * Vitals: Assessment: Plan: * Treatment: * Images: * The named appointment provid er may or may not be the originator of this progress note, and it is not deemed complete until electronically signed by the appointment provider. Sign off status: Pending * Provider: Ping Hernandez DPM Date: 06/13/2024 Generated for Luz Maria blount/Nehemias/Antony on: 1 07/25/2024 12:14 PM EST
--- OUTSIDE RECORDS SUMMARY | 2025-04-20 04:15 | XMS_ITS ---
Author Organization [facility] Address [address] [facility] [place] [address] Care Team Providers Care Laundry Bag Punch Operator Name Role Phone Temo Whitley Primary Care Provider Cyndi colby David Martha Unavailable [phone] Allergies Allergen (clinical drug ingredient) Drug/Non Drug Allergy documented on EMR Reaction Allergy Type Onset Date Status Iodinated contrast media (substance) Iodinated Diagnostic Agents Unknown Drug Allergy Active REASON FOR VISIT Dr Espinal Medications Medication SIG (Take, Route, Frequency, Duration) Notes Start Date End Date Status Lisinopril Active Xarelto Active Metformin & Diet Manage Prod Active Atorvastatin Calcium Active zzzExtra Depth Orthopedic Shoes (1 Pair) with [...] hammertoes; Duration: . 04/21/2014 Not-Taking Loprox Not-Taking Clotrimazole-Betamethason e 1-0.05 % 1 application Externally Twice a day; Duration: 30 days 02/01/2022 Not-Taking Clotrimazole-Betamethason e 1-0.05 % 1 application Externally Twice a day; Duration: 30 days Active Voltaren 1 % as directed Externally 01/30/2024 Active Extra Depth Orthopedic Shoes (1 Pair) with Customized Heat Molded Multidensity Innersoles (3 Pair) as directed Dx: NIDDM/Polyneuropathy (E11.42), Hammertoe Foot Deformity (M20.41,M20.42), Preulcerative Skin Lesion(s) (L85.1 06/11/2018 Not-Taking Hydrocortisone 2.5 % as directed Externa lly to feet Twice a day; Duration: 30 days PRN Active Metoprolol Tartrate 25 MG Oral; Duration: 90 Days Active Diabetic Insoles Act clive glyBURIDE 2.5 MG Orally Act clive Encounters Encounter Location Date Provider Diagnosis [facility] [address] [address] 04/20/2025 Martha Hernandez Plan Of Treatment Next Appt Details Provider Name:Martha Hernandez , 07/27/2025 02:00:00 PM, [address] [place] [address], [place], [address], Progress Notes * MARCELA, Anastacio FDOB:1940 (84 yo M)Acc No.[id number]:04/20/2025 Progress Note Patient: Anastacio RECINOS Provider: Ping Hernandez DPM :1940 A ge:84 Y S ex:Male Date:04/20/2025 Address:[address] [place], [place] [id number] Pcp:Temo Whitley Subjective: * Chief Complaints: * [address] Espinal. * Medical History: O steoporosis, Mumps, Measles, Hypertension, Diabetic, Chicken pox, Cataracts, Primary osteoarthritis, left ankle and foot, Other hammer toe(s) (acquired), right foot, Other hammer toe(s) (acquired), left foot, Hallux rigidus of left foot, Varicose veins of left lower extremity with inflammation. * Medications: T aking Atorvastatin Calcium , Taking Xarelto , Taking Lisinopril , Taking Metformin & Diet Manage Prod , Taking Diabetic Insoles , Taking glyBURIDE 2.5 MG Tablet Orally , Taking Hydrocortisone 2.5 % Cream as directed Externally to feet Twice a day , Notes to Pharmacist: PRN, Taking Metoprolol Tartrate 25 MG Tablet Oral , Taking Voltaren 1 % Gel as directed Externally , Taking Clotrimazole-Betamethasone 1-0.05 % Cream 1 application Externally Twice a day , Not-Taking/PRN Extra Depth Orthopedic Shoes (1 Pair) with Customized Heat Molded Multidensity Innersoles (3 Pair) as directed Dx: NIDDM/Polyneuropathy (E11.42), Hammertoe Foot Deformity (M20.41,M20.42), Preulcerative Skin Lesion(s) (L85.1 , Not-Taking/PRN Clotrimazole-Betamethasone 1-0.05 % Cream 1 application Externally Twice a day , Not-Taking/PRN amLODIPine Besylate 5 MG Tablet 1 tablet Orally Once a day , Not-Taking/PRN Lisinopril 10 MG Tablet 1 tablet Orally Once a day , Not-Taking/PRN Loprox , Not-Taking/PRN Extra-Depth Diabetic Shoes with 3 Pair Custom heat-molded multi-density innersoles . . for 1 year . Dx:hallux limitus and hammertoes , Not-Taking/PRN zzzExtra Depth Orthopedic Shoes (1 Pair) with Customized Heat Molded Multidensity Innersoles (3 Pair) . . . . Dx: NIDDM/Polyneuropathy (E11.42), Hammertoe Foot Deformity (M20.41,M20.42), Preulcerative Skin Lesion(s) (L85.1) * Allergies: I odinated Diagnostic Agents. Objective: * Vitals: Assessment: Plan: * Treatment: * Images: * The named appointment provid er may or may not be the originator of this progress note, and it is not deemed complete until electronically signed by the appointment provider. Sign off status: Pending * Provider: Ping Hernandez DPM Date: 06/20/2024 Generated for Luz Maria blount/Nehemias/Antony on: 07/25/2024 12:14 PM EST
[2025-05-24 11:10] VITALS: BP 120/50; PULSE 96; TEMP 36.6; O2SAT 95; BMI 32.1
--- NOTE | 2025-05-24 11:10 | AM.OFFWIN_ITS ---
Intake Vital Signs 05/24/25 11:10 Height 5 ft 6 in Weight 199 lb BMI 32.1 BP 120/50 L Blood Pressure Location Rt brachial Position Sitting Pulse 96 Pulse Source Pulse Oximeter Temp 97.9 F Temp Source Oral Pulse Oximetry (%) 95 Oxygen Delivery Method Room Air Intake Visit Reasons: EP Cold symptoms, cough Intake Note: Patient presents c/o cough, fatigue, lethargic, chest congestion x1 week Patient Tobacco Use Status: Never used Tobacco Allergies Iodinated Contrast Media (IV Contrast Dye) Allergy (Verified 05/24/25 11:13) Rash olmesartan Allergy (Verified 05/24/25 11:13) Unknown HPI HPI Comments History of Present Illness Details History - The patient is an 84 year old male pre senting with a one-week history of illness. - His symptoms include a non-severe coug h, feeling weak, listlessness, fatigue, and lack of motivation. - He has not exercised all week due to h is symptoms. - He denies a sore throat but reports so me wheezing and a hoarse voice. - He denies shortness of breath, ear sandrita n, and sinus pain. - He has not tried any qmkm-wgg-fhmdfsb medications like Mucinex or Robitussin for this illness. - Past medical history is significant fo r signs of COPD noted during a prior hospitalization and a known heart murmur. - He has no history of valve replacement . - He quit smoking 27 years ago after smo wendy for 10-15 years and does not currently smoke or vape. Review of Systems - Constitutional: Reports feeling weak, listless, fatigued, and not feeling like his normal self. - Respiratory: Reports a non-severe coug h and some wheezing. - Denies shortness of breath. - HEENT: Reports a hoarse voice. - Denies sore throat, ear pain, and sinu s pain. All systems reviewed and are unremarkable except as noted in HPI Physical Exam General: Cooperative, healthy appearing, comfortable and no acute distress Orientation/consciousness: Patient oriented x3 Limitations: No limitations Head: Normal to inspection Ears: Hearing grossly normal bilaterally, external ears normal, EAC's normal bilaterally and TM's normal bilaterally Nose: Normal external nose present, Normal nares present and No nasal discharge present Face and sinus: Normal facial exam and sinuses nontender Mouth: Normal oral and palatal mucosa present and moist mucous membranes Throat: tonsils normal, no exudates, uvula midline, posterior oropharynx erythema Eyes: Appearance normal, both eyes and all related structures Neck: Normal visual inspection, full ROM Respiratory: Clear to auscultation bilaterally. Normal respiratory effort, able to speak in complete sentences, actively coughing, no respiratory distress, not tachypneic, no tripod positioning and no use of accessory muscles. Cardiovascular: Regular rate and rhythm. systolic heart murmur present. Skin: No rashes or lesions noted Neuro: Patient oriented x3 Extremities: Normal to inspection and Yes no clubbing, cyanosis or edema PFSH Medical History (Reviewed 06/23/23 @ 09:14 by Fabiola Becerra, WELDING PANTOGRAPH MACHINE OPERATOR, PEDIATRIC GENETICIST) Spontaneous rupture of other tendons, right hand Type II diabetes mellitus PUD (peptic ulcer disease) Osteoarthritis Orthopnea Obesity Mixed hyperlipidemia Essential hypertension Erectile dysfunction Constipation ARF (acute renal failure) Mixed hyperlipidemia Bilateral carpal tunnel syndrome Carpal tunnel syndrome, right Cancer of prostate Left knee injury Surgical History H/O left knee surgery History of prostatectomy H/O prostatectomy Family History Brother Lung cancer Mother Diabetes Father Congestive heart failure Anginal pain Social History Household Members: None and Unknown / Unable to assess Housing: House Patient Tobacco Use Status: Never used Tobacco Current occupational status: retired Physical Exam Vital Signs: Last Vital Signs Temp 97.9 F 05/24/25 11:10 Pulse 96 05/24/25 11:10 BP 120/50 L 05/24/25 11:10 Pulse Ox 95 05/24/25 11:10 Oxygen Delivery Method Room Air 05/24/25 11:10 BMI result Body Mass Index 32.1 Assessment & Plan Assessment & Plan (1) Viral infection: Code(s): B34.9 - Viral infection, unspecified Plan: Patient was informed and verbally consented to the use of an ambient scribe for clinic note documentation during this visit. - VSS, pt well appearing and PE unremarkable. - The patient presents with a one-week history of cough, fatigue, weakness, and hoarseness, consistent with a viral etiology. - A nasal swab was performed in the clinic for flu, covid and rsv. - A prescription for a cough suppressant was sent to the pharmacy for use as needed at night. - Recommended supportive care with rest, increased fluid intake, and ithq-srr-xcyiulf decongestants with an antihistamine, such as Graciela-D or Robitussin combinations. - The patient was educated that antibiotics are not helpful for a viral illness and that the condition will run its course. Orders: Orders SARS-CoV2/FLU/RSV Today R09.89 - Other specified symptoms and signs involving the circulatory and respiratory systems Medications: New benzonatate DO NOT ALLOW CHILDREN TO HAVE ACCESS TO THIS MEDICATION IT IS DANGEROUS FOR CHILDREN. 200 mg PO BEDTIME PRN 10 caps 0RF cough Coding Level of Care Code New Pt Level 3 (52946) Diagnoses Viral infection B34.9
--- OUTSIDE RECORDS SUMMARY | 2025-05-24 12:14 | XMS_ITS | Clinical Summary ---
Author Organization [facility], Address [address] [facility] [address] [facility] [place] [address] Phone Care Team Providers Care Budget Technician Name Role Phone Andriy Sherman MD Primary Care Provider [phone] Allergies Active Allergy Reactions Criticality Noted Date [...] Years Used Date Smoking Tobacco: Former Cigarettes 0 Q uit: 03/11/1998 Sex and Gender Information [...] AM EDT) Hemoglobin A1C 6.2(H) (4.0-5.6) % [facility] Comment: MONITORING: In known diabetic patients, hemoglobin A1c targets should be discussed with health care provider. DIAGNOSTIC USE: The [place] Diabetes Association (ADA) and the World Health [...] Supplement 1 Testing performed or reported by [facility], a Service of [facility], [address] [place] [id number] Kathrine Pan MD, [place] [facility]# [id number] Blood specimen (specimen) Venous blood / Unknown 02/12/2022 7:39 AM EDT 02/12/2022 9:53 AM EDT us Moustapha Levine MD LAB BLOOD ORDERABLES Final Resul t [facility] from Last 3 Months or Most Recently Relevant to Health Maintenance Insurance [place] [id number] [facility] [place] [id number] Care Teams Budget Technician Relationship Specialty Start Date End Date Andriy Sherman MD [address] [place] [id number] PCP - General Family Medicine 03/02/21
--- OUTSIDE RECORDS SUMMARY | 2025-05-24 12:14 | XMS_ITS | Encounter Summary ---
Author Organization [facility] Address [address] [place] [address] Care Team Providers Care Collateral Specialist Name Role Phone Em Tam MD Primary Care Provider [phone] Reason for Visit * Reason Onset Date Comments Results 03/22/2025 Encounter Details Date Type Department Care Team (Late st Contact Info) Description 03/22/2025 Results Follow-Up Gastroenterology - [address] [place] [address] Luz Michel MA Social History Tobacco Use Types Packs/Day Years Used Date Smoking Tobacco: Former Smokeless Tobacco: Never Alcohol Use Standard Drinks/Week Comments Yes 1 (1 standard drink = 0.6 oz pur e alcohol) glass of wine nightly Housing Instability Answer Date Recorde d Are you worried that in the next 2 months you may not have stable housing? No 03/18/2025 Food Access & Nutrition Answer Date Rec orded Do you have access to a vari ety of food including fruits and vegetables? Yes 03/18/2025 Access to Healthcare Answer Date Record ed Within the last 3 months, ho w many times did you visit the emergency department for your medical care? 0 03/18/2025 Health Literacy Answer Date Recorded How often do you need to hav e someone help you when you read instructions, pamphlets, or other written material from your doctor or pharmacy? Sometimes 03/18/2025 Caregiver: How often do you need to have someone help you when you read instructions, pamphlets, or other written material from your doctor or pharmacy? Not on file 03/18/2025 Financial Risk Answer Date Recorded How hard is it for you to pa y for the very basics like food, housing, medical care, and air conditioning / heating? Not very hard 03/18/2025 Transportation Answer Date Recorded Has the lack of transportati on kept you from meetings, work, or from getting things needed for daily living? Yes Has the lack of transportati on kept you from medical appointments or from getting medications? No 03/18/2025 Social Isolation Answer Date Recorded How often do you feel lonely or isolated from th ose around you? Never 03/18/2025 Food Risk Answer Date Recorded Within the past 12 months we worried whether our food would run out before we got money to buy more. Never true 03/18/2025 Within the past 12 months th e food we bought just didn't last and we didn't have money to get more. Never true 03/18/2025 Dependent Care Answer Date Recorded Do you need help finding or paying for care for your loved ones. For example, early childhood education coordinator or elderly care for an older adult? No 03/18/2025 Education Answer Date Recorded Do you think completing more education or training, like finishing a GED, going to college, or learning a trade, would be helpful for you? No 03/18/2025 Employment and Income Answer Date Recor ded During the last four weeks, have you been actively looking for work? No 03/18/2025 Living Situation Answer Date Recorded What is your living situation? Unrecognized valu e 03/18/2025 Sex and Gender Information Value Date Recorded Sex Assigned at Not on file Legal Sex Male 2:45 AM EST Gender Identity Not on file Sexual Orientation Not on file documented as of this encounter Progress Notes * Jonathan Negron - 04/04/2025 2:35 PM EST Pt is calling back documented in this encounter Plan of Treatment Upcoming Encounters Date Type Department Care Team (Late st Contact Info) Description 06/29/2025 9:10 AM EST Office Visit [facility] - [address] [place] [address] Caleb Barton NP [address] [place] [address] [place] [address] 11/21/2025 11:30 AM EDT Office Visit Gastroenterology - [address] [place] [address] Zahraa Hameed PA [address] [place] [address] documented as of this encounter Goals Goal Patient Goal Type Associated Problems Recent Progress Patient-Stated? 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 RN documented as of this encounter Visit Diagnoses Not on filedocumented in this encounter Additional Health Concerns Active Problems Noted Date Diagnosed Date Autogenerated Problem 03/17/2025 Infection Onset Date Last Indicated Resolved Time Gastrointestinal Rule-Out 03/17/2025 03/17/2025 7:06 PM EST documented as of this encounter Care Teams Collateral Specialist Relationship Specialty Start Date End Date Em Tam MD [address] [place] [id number] PCP - General Internal Medicine 11/16/24 documented as of this encounter
--- OUTSIDE RECORDS SUMMARY | 2025-05-24 12:14 | XMS_ITS | Clinical Summary ---
Author Organization [facility] Prior to 10/30/[address] [place] [id number] Care Team Providers Care Manufacturing Technician Name Role Phone Rebecca Barros Primary Care Provider Allergies No known active allergies Medications Medication [...] age to complete this topic Care Teams Manufacturing Technician Relationship Specialty Start Date End Date Rebecca Barros PA [address] [place] [address] PCP - General Physician Corner Bead Operator 09/17/17
--- OUTSIDE RECORDS SUMMARY | 2025-05-24 12:14 | XMS_ITS | Clinical Summary ---
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 1 Active lisinopriL (PRINIVIL,ZESTRIL ) 5 mg tablet 2 tablets (10 mg total). 1 Active metFORMIN (GLUCOPHAGE) 500 mg tablet Take 2 tablets (1,000 mg total) by mouth 2 (two) times a day with meals. 1 Active multivit-min/iron /folic acid/K (ADULTS MULTIVITAMIN ORAL) Multiple Vitamins-Mine rals (Multivitamin Adult) Chew Tab Take by mouth. Active metoprolol tartrate (LOPRESSOR) 25 mg tablet Take 0.5 tablets (12.5 mg total) by mouth 2 (two) times a day. 90 tablet 3 5 Active ubidecarenone (CO Q-10 ORAL) Take 100 mg by mouth 1 (one) time each day. Active rivaroxaban (Xarelto) 20 mg tablet TAKE 1 TABLET BY MOUTH IN THE EVENING 90 tablet 1 5 Active pantoprazole (PROTONIX) 40 mg EC tabletIndications :PUD (peptic ulcer disease) Take 1 tablet (40 mg total) by mouth 2 (two) times a day. Do not crush, chew, or split. 60 each 5 05/04/20 25 Hospital, Clinic, or Other Facility Administered Medication Ordered Dose Route Frequency Start Date End Date Status perflutren lipid microsphere (DEFINITY) 1.3 mL in sodium chloride 0.9% 8.7 mL injection 10 mL IV Once in imaging 05/13/2025 05/13/2025 End ed Active Problems Problem Noted Date Diagnosed Date Anemia 03/18/2025 Sleep apnea 03/18/2025 BiPAP (biphasic positive airway pressure) depend ence 03/18/2025 Upper GI bleed 03/17/2025 Nonischemic cardiomyopathy 01/01/2023 Overview (05/13/2024): - Likely [...] Encounters Date Type Department Care Team Description 05/13/2025 9:00 AM EST Ancillary Procedure [facility] - [address] [place] [phone] Nonischemic cardiomyopathy (CMS/HCC V24, CMS/HCC V28) 04/12/2025 Telephone Gastroenterology - [address] [place] [address] Manuel Colorado MD 03/22/2025 Results Follow-Up Gastroenterology - [address] [place] [phone] Luz Michel [place] 03/18/2025 8:32 AM EDT Anesthesia Event [facility] Endoscopy [address] [place] [address] Kiersten Martinez MD 03/17/2025 1:04 PM EDT - 03/19/2025 2:02 PM EDT Hospital Encounter [facility] [address] [place] [phone] Abbe Mcdonnell MD Flores, Carlos M, MD Mohani, Priya, MD Surendran, Anupama, MD Gastrointestinal hemorrhage, unspecified gastrointestinal hemorrhage type (Primary Dx); LIO (acute kidney injury) ([facility] V24); Hypomagnesemia; Anemia, unspecified type Discharge Disposition: Home or Self Care from Last 3 Months Surgical History Surgery Date Site/Laterality Comments OTHER SURGICAL HISTORY Right PROCEDURE: HISTORY OTHER; COMMENT: quadriceps tendon rupture Medical History Medical History Date Comments Essential hypertension DX:Essent ial hypertension Hyperlipidemia DX:Hyperlipidemi a Diabetes mellitus type 2, co ntrolled, with complications ([facility] V24, [facility] V28) DX:Diabetes mellitus type 2, controlled, with complications ([facility]) Asthma DX:Asthma Cancer of prostate ([facility] V24, [facility] V28) DX:Cancer of prostate ([facility]) Carpal tunnel syndrome on right DX:Carpal tunnel syndrome on right Carpal tunnel syndrome, bilateral DX:Carpal tunnel syndrome, bilateral Constipation DX:Constipation ED (erectile dysfunction) DX:ED (erectile dysfunction) Essential (primary) hypertension DX:Essential (primary) hypertension Obesity (BMI 30.0-34.9) DX:Obesi ty (BMI 30.0-34.9) Orthopnea DX:Orthopnea Osteoarthritis DX:Osteoarthriti s PUD (peptic ulcer disease) DX:PU D (peptic ulcer disease) Type 2 diabetes mellitus ([facility] V24, [facility] V28) DX:Type 2 diabetes mellitus ([facility]); COMMENT: controlled wound infection ARF (acute renal failure) ([facility] V24) DX:ARF (acute renal failure) ([facility]) Family History Medical History Relation Name [...] care for your loved ones. For example, director of early childhood or elderly care for an older adult? [...] on file Sexual Orientation Not on file Last Filed Vital Signs Vital Sign Reading Time Taken Comments Blood Pressure 127/67 05/13/2025 9:50 AM EST Pulse 59 03/19/2025 11:25 AM EDT Temperature 36.4 C (97.5 F) 03/19/2025 11:25 AM EDT Respiratory Rate 20 03/19/2025 7:49 AM EDT Oxygen Saturation 100% 03/19/2025 11:25 AM EDT Inhaled Oxygen Concentration - - Weight 93 kg (205 lb) 05/13/2025 9:50 AM EST Height 165.1 cm (5' 5 ) 05/13/2025 9:50 AM EST Body Mass Index 34.11 05/13/2025 9:50 AM EST Plan of Treatment Upcoming Encounters Date Type Department Care Team (Late st Contact Info) Description 06/29/2025 9:10 AM EST Office Visit [facility] - [facility] [address] [facility] [address] [place] [phone] Caleb Barton NP [address] [place] [address] [place] [phone] 11/21/2025 11:30 AM EDT Office Visit Gastroenterology - [address] [facility] [address] [place] [phone] Zahraa Hameed PA [address] [facility] [address] [place] [address] Health Maintenance Due Date Last Done Comments Diabetes: Annual Foot Exam 09/25/1950 Diabetes: Annual Retina Eye Exam 09/25/1950 Medicare Annual Wellness Visit 05/12/2022 Diabetes: Annual Urine Albumin-Creatinine Ratio (uACR) 05/18/2022 Diabetes: Blood Sugar Control Test (HGBA1C) 08/12/2022 02/12/2022 Depression Screening 06/02/2024 COVID-19 Vaccine (9 - Pfizer risk season) 2025 02/22/2025, 03/01/2024, 02/16/2023, Additional history exists Social Influencers of Health Screening 03/18/2026 03/18/2025 Diabetes: Annual GFR (Glomerular Filtration Rate) 03/19/2026 03/19/2025, 03/18/2025, 03/17/2025 Falls Risk Assessment 03/19/2026 03/19/2025 Hypertension/CHF/CAD Annual BMP Blood Test 03/19/2026 03/19/2025, 03/18/2025, 03/17/2025 Cholesterol Screening (Lipid Panel) 11/18/2029 11/18/2024, 11/18/2024 DTaP,Tdap,and Td Vaccines (4 - Td or Tdap) 01/08/2031 01/08/2021, 11/08/2010, 01/07/2001 Zoster Vaccines Completed 04/12/2018, 01/02, 06/28/2009 Pneumococcal Vaccine: 50+ Years Completed 02/25/2023, 02/28/2017, 04/10/2006, Additional history exists RSV Immunization Adult Patients Completed 03/01/2024 Influenza Vaccine Completed 02/22/2025, , 02/16/2023, Additional history exists HIB Vaccines Aged Out No longer eligi [...] on patient's age to complete this topic Goals Goal Patient Goal Type Associated Problems Recent Progress Patient-Stated? 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 Procedure Name Priority Date/Time Associated Diagnosis Comments POCT GLUCOSE BLOOD Routine 03/19/2025 10:57 AM EDT POCT GLUCOSE BLOOD Routine 03/19/2025 8: 56 AM EDT CBC WITH AUTO DIFFERENTIAL Routine 03/19/2025 6:24 AM EDT MAGNESIUM Timed 03/19/2025 6:24 AM EDT CBC AND DIFFERENTIAL Routine 03/19/2025 6:24 AM EDT BASIC METABOLIC PANEL Routine 03/19/2025 6:24 AM EDT POCT GLUCOSE BLOOD Routine 03/19/2025 6: 08 AM EDT POCT GLUCOSE BLOOD Routine 03/18/2025 8: 41 PM EDT POCT GLUCOSE BLOOD Routine 03/18/2025 6: 51 PM EDT US RETROPERITONEAL COMPLETE Routine 03/18/2025 4:39 PM EDT CREATININE, URINE, RANDOM STAT 03/18/2025 1:25 PM EDT SODIUM, URINE, RANDOM STAT 03/18/2025 1:25 PM EDT POCT GLUCOSE BLOOD Routine 03/18/2025 12:11 PM EDT POCT GLUCOSE BLOOD Routine 03/18/2025 9: 35 AM EDT EGD Routine 03/18/2025 8:43 AM EDT Gastrointestinal hemorrhage, unspecified gastrointestinal hemorrhage type TISSUE EXAM Routine 03/18/2025 8:40 AM EDT Gastrointestinal hemorrhage, unspecified gastrointestinal hemorrhage type LIO (acute kidney injury) (CMS/[facility] V24) Hypomagnesemia Anemia, unspecified type POCT GLUCOSE BLOOD Routine 03/18/2025 5: 42 AM EDT RETICULOCYTE COUNT Add-On 03/18/2025 5: 32 AM EDT VITAMIN B12 AND FOLATE STAT Add-on 03/18/2025 5:32 AM EDT FERRITIN Add-On 03/18/2025 5:32 AM EDT IRON AND TIBC Add-On 03/18/2025 5:32 AM EDT CBC WITH AUTO DIFFERENTIAL Routine 03/18/2025 5:32 AM EDT CBC AND DIFFERENTIAL Routine 03/18/2025 5:32 AM EDT MAGNESIUM Routine 03/18/2025 5:32 AM EDT BASIC METABOLIC PANEL Routine 03/18/2025 5:32 AM EDT POCT GLUCOSE BLOOD Routine 03/18/2025 3: 38 AM EDT POCT GLUCOSE BLOOD Routine 03/18/2025 1: 43 AM EDT POCT GLUCOSE BLOOD Routine 03/18/2025 1: 00 AM EDT TRANSFUSE RED BLOOD CELLS Routine 03/17/2025 11:57 PM EDT PREPARE RBC Routine 03/17/2025 11:03 PM EDT HEMOGLOBIN AND HEMATOCRIT Routine 03/17/2025 9:59 PM EDT CAMPOS URINE CULTURE TUBE Routine 03/17/2025 8:18 PM EDT URINALYSIS WITH REFLEX MICROSCOPIC AND CULTURE Routine 03/17/2025 8:18 PM EDT URINALYSIS WITH REFLEX MICROSCOPIC AND CULTURE Routine 03/17/2025 8:18 PM EDT CULTURE URINE Routine 03/17/2025 8:18 PM EDT POCT GLUCOSE BLOOD Routine 03/17/2025 8: 17 PM EDT POCT GLUCOSE BLOOD Routine 03/17/2025 7: [address] ABDOMEN PELVIS WO CONTRAST STAT 03/17/2025 5:43 PM EDT TYPE AND SCREEN STAT 03/17/2025 3:04 PM EDT IRON AND TIBC Add-On 03/17/2025 1:49 PM EDT FERRITIN Add-On 03/17/2025 1:49 PM EDT HAPTOGLOBIN Add-On 03/17/2025 1:49 PM EDT LACTATE DEHYDROGENASE Add-On 03/17/2025 1:49 PM EDT RETICULOCYTE COUNT Add-On 03/17/2025 1: 49 PM EDT CBC WITH AUTO DIFFERENTIAL STAT 03/17/2025 1:49 PM EDT COMPREHENSIVE METABOLIC PANEL STAT 03/17/2025 1:49 PM EDT MAGNESIUM STAT 03/17/2025 1:49 PM EDT LACTATE, WITH REFLEX STAT 03/17/2025 1:49 PM EDT LIPASE STAT 03/17/2025 1:49 PM EDT ACTIVATED PARTIAL THROMBOPLASTIN TIME STAT 03/17/2025 1:49 PM EDT PROTHROMBIN TIME WITH INR STAT 03/17/2025 1:49 PM EDT CBC AND DIFFERENTIAL STAT 03/17/2025 1:49 PM EDT SD CRITICAL CARE 30-74 MINUTES Routine 03/17/2025 1:02 PM EDT LIPID PANEL Routine 11/18/2024 8:24 AM EDT from Last 3 Months or Most Recently Relevant to Health Maintenance Results * (ABNORMAL) POCT Glucose, blood (03/19/2025 10:57 AM EDT) Only the most recent of13 resultswithin the time period is included. Pathologist [facility] Glucose POCT 227(H) 70 - 100 mg/dL 03/19/2025 10:58 AM EDT [facility] Blood Capillary blood specimen / Unknown 03/19/2025 10:57 AM EDT 03/19/2025 10:59 AM EDT us Rachael Pleitez MD LAB POINT OF CARE T EST DOCKED DEVICE UNSOLICITED RESULTS Final Result [facility] [address] [place] [address], * (ABNORMAL) CBC auto differential (03/19/2025 6:24 AM EDT) Only the most recent of3 resultswithin the time period is included. WBC 7.5 4.8 - 10.8 K/mcL LAB HEMETOLOGY METHOD 03/19/2025 7:06 AM EDT [facility] RBC 2.70(L) 4.50 - 5.50 M/mcL LAB HEMETOLOGY METHOD 03/19/2025 7:06 AM [facility] Hemoglobin 8.4(L) 13.5 - 17.5 g/dL LAB HEMETOLOGY METHOD 03/19/2025 7:06 AM [facility] Hematocrit 25.7(L) 42.0 - 54.0 % LAB HEMETOLOGY METHOD 03/19/2025 7:06 AM [facility] MCV 94.1 79.0 - 98.0 FL LAB HEMETOLOGY METHOD 03/19/2025 7:06 AM [facility] MCH 30.8 27.0 - 32.0 pcg LAB HEMETOLOGY METHOD 03/19/2025 7:06 AM [facility] MCHC 32.7 32.0 - 37.0 g/dL LAB HEMETOLOGY METHOD 03/19/2025 7:06 AM [facility] RDW 13.8 11.0 - 15.0 % LAB HEMETOLOGY METHOD 03/19/2025 7:06 AM [facility] Platelets 315 130 - 400 K/mcL LAB HEMETOLOGY METHOD 03/19/2025 7:06 AM [facility] MPV 8.5 7.0 - 11.0 FL LAB HEMETOLOGY METHOD 03/19/2025 7:06 AM [facility] NRBC 0.0 <1.0 % LAB HEMETOLOGY METHOD 03/19/2025 7:06 AM [facility] NRBC Absolute 0.00 <0.10 K/mcL LAB HEMETOLOGY METHOD 03/19/2025 7:06 AM [facility] Neutrophils Relative 72.6 % LAB HEMETOLOGY METHOD 03/19/2025 7:06 AM [facility] Lymphocytes Relative 18.7 % LAB HEMETOLOGY METHOD 03/19/2025 7:06 AM [facility] Monocytes Relative 4.8 % LAB HEMETOLOGY METHOD 03/19/2025 7:06 AM EDT [facility] Eosinophils Relative 2.4 % LAB HEMETOLOGY METHOD 03/19/2025 7:06 AM EDT [facility] Basophils Relative 0.3 % LAB HEMETOLOGY METHOD 03/19/2025 7:06 AM EDT [facility] Immature Granulocytes Relative 1.2 % LAB HEMETOLOGY METHOD 03/19/2025 7:06 AM EDT [facility] Neutrophils Absolute 5.41 1.50 - 7.00 K/mcL LAB HEMETOLOGY METHOD 03/19/2025 7:06 AM EDT [facility] Lymphocytes Absolute 1.39 1.00 - 5.00 K/mcL LAB HEMETOLOGY METHOD 03/19/2025 7:06 AM EDT [facility] Monocytes Absolute 0.36 0.20 - 1.00 K/mcL LAB HEMETOLOGY METHOD 03/19/2025 7:06 AM EDT [facility] Eosinophils Absolute 0.18 0.00 - 0.50 K/mcL LAB HEMETOLOGY [facility] Basophils Absolute 0.02 0.00 - 0.20 K/mcL LAB HEMETOLOGY METHOD 03/19/2025 7:06 AM EDT [facility] Immature Granulocytes Absolute 0.09(H) 0.00 - 0.03 K/mcL LAB HEMETOLOGY METHOD 03/19/2025 7:06 AM [facility] Blood Venous blood specimen / Unknown Venipuncture / Unknown 03/19/2025 6:24 AM EDT 03/19/2025 6:50 AM EDT Amanda KENDRICK LAB BLOOD ORDERABLES Final Result [facility] [address] [place] [address], [place] [phone] * Magnesium (03/19/2025 6:24 AM EDT) Only the most recent of3 resultswithin the time period is included. [facility] Magnesium 1.9 1.9 - 2.6 mg/dL LAB CHEMISTRY METHOD 03/19/2025 7:27 AM EDT [facility] Blood Venous blood specimen / Unknown Venipuncture / Unknown 03/19/2025 6:24 AM EDT 03/19/2025 6:52 AM EDT Amanda KENDRICK LAB BLOOD ORDERABLES Final Result [facility] [address] [place] [address], * (ABNORMAL) Basic metabolic panel (03/19/2025 6:24 AM EDT) Only the most recent of2 resultswithin the time period is included. [facility] Sodium 144 133 - 145 mmol/L LAB CHEMISTRY METHOD 03/19/2025 7:27 AM [facility] Potassium 5.3 3.5 - 5.5 mmol/L LAB CHEMISTRY METHOD 03/19/2025 7:27 AM [facility] Chloride 115(H) 96 - 110 mmol/L LAB CHEMISTRY METHOD 03/19/2025 7:27 AM [facility] CO2 22 21 - 32 mmol/L LAB CHEMISTRY METHOD 03/19/2025 7:27 AM [facility] Anion Gap 7 3 - 11 LAB CHEMISTRY METHOD 03/19/2025 7:27 AM [facility] Glucose 83 70 - 100 mg/dL LAB CHEMISTRY METHOD 03/19/2025 7:27 AM [facility] BUN 54(H) 5 - 25 mg/dL LAB CHEMISTRY METHOD 03/19/2025 7:27 AM EDT [facility] Creatinine 1.52(H) 0.70 - 1.30 mg/dL LAB CHEMISTRY METHOD 03/19/2025 7:27 AM EDT [facility] eGFR 45(L) >=60 mL/min/1. 73m2 LAB CHEMISTRY METHOD 03/19/2025 7:27 AM EDT [facility] Comment:Calculation based on the Chronic Kidney Disease Epidemiology Collaboration (CKD-EPI) equation refit without adjustment for race. BUN/Creatinine Ratio 35.5 LAB CHEMISTRY METHOD 03/19/2025 7:27 AM EDT [facility] Calcium 8.1(L) 8.5 - 10.5 mg/dL LAB CHEMISTRY METHOD 03/19/2025 7:27 AM EDT [facility] Blood Venous blood specimen / Unknown Venipuncture / Unknown 03/19/2025 6:24 AM EDT 03/19/2025 6:52 AM EDT us Amanda KENDRICK LAB BLOOD ORDERABLES Final Result [facility] [address] [place] [address], [place] [phone] * US Retroperitoneal Complete (03/18/2025 4:39 PM EDT) Anatomical Region Laterality Modality Body Ultrasound 03/21/2025 9:02 AM EDT Impressions 03/21/2025 9:04 AM EDT Normal renal ultrasound. -------- FINAL REPORT -------- Dictated By: Ambika Cain Dictated Date: 03/21/2025 09:02 ET Assigned Physician: Ambika Cain Reviewed and Electronically Signed By: Ambika Cain Signed Date: 03/21/2025 09:04 ET Workstation ID: [id number] Transcribed By: Self Edit Transcribed Date: 03/21/2025 09:02 ET Narrative 03/21/2025 9:04 AM EDT INDICATION: Acute renal failure FINDINGS: Renal ultrasound obtained. CT scan of the abdomen and pelvis from March 17, 2025 reviewed. Right kidney: Normal in size, shape and echogenicity. No nephrolithiasis or hydronephrosis. Exophytic right lower pole lesion noted on CT scan not imaged. Left kidney: Mild lobulation otherwise normal size and echogenicity. No nephrolithiasis or hydronephrosis. 4 cm upper pole cyst. Bladder: Limited imaging of the bladder demonstrates nonvisualized ureteral jets. Procedure Note Ambika Cain MD - 03/21/2025 INDICATION: Acute renal failure FINDINGS: Renal ultrasound obtained. CT scan of the abdomen and pelvisfrom March 17, 2025 reviewed. Right kidney: Normal in size, shape and echogenicity. No nephrolithiasisor hydronephrosis. Exophytic right lower pole lesion noted on CT scan notimaged. Left kidney: Mild lobulation otherwise normal size and echogenicity. Nonephrolithiasis or hydronephrosis. 4 cm upper pole cyst. Bladder: Limited imaging of the bladder demonstrates nonvisualizedureteral jets. IMPRESSION: Normal renal ultrasound. -------- FINAL REPORT -------- Dictated By: Ambika Cain Dictated Date: 03/21/2025 09:02 ET Assigned Physician: Ambika Cain Reviewed and Electronically Signed By: Ambika Cain Signed Date: 03/21/2025 09:04 ET Workstation ID: [id number] Transcribed By: Self Edit Transcribed Date: 03/21/2025 09:02 ET us Amanda KENDRICK IMSejal US PROCEDURES Final Re sult * Sodium, urine, random (03/18/2025 1:25 PM EDT) Sodium, Ur 65 mmol/L LAB CHEMISTRY METHOD 03/18/2025 2:56 PM EDT [facility] Urine Urine specimen from urethra / Unknown Non-blood Collection / Unknown 03/18/2025 1:25 PM EDT 03/18/2025 2:31 PM EDT Amanda Chavez [place] LAB URINE ORDERABLES Final Result Performing Organization Address City/[facility]/ZIP Co de Phone Number [facility] [address] [place] [address], [place] [phone] * Creatinine, urine, random (03/18/2025 1:25 PM EDT) Creatinine, Urine 68.0 mg/dL LAB CHEMISTRY METHOD 03/18/2025 2:56 PM EDT [facility] Urine Urine specimen from urethra / Unknown Non-blood Collection / Unknown 03/18/2025 1:25 PM EDT 03/18/2025 2:31 PM EDT Amanda Chavez [facility] URINE ORDERABLES Final Result Performing Organization Address [facility] Co de Phone Number [facility] [address] [place] [address], [place] [phone] * EGD Anesthesia - MAC; [facility] ENDOSCOPY (03/18/2025 8:43 AM EDT) Anatomical Region Laterality Modality Endoscopy 03/18/2025 8:23 AM EDT Impressions 03/18/2025 8:47 AM EDT - Z-line regular, 42 cm from the incisors. - Normal esophagus. - Normal stomach. - Non-obstructing non-bleeding duodenal ulcers with no stigmata of bleeding. - Mucosal changes in the duodenum. - Several biopsies were obtained in the gastric antrum. Recommendation: - [facility]. - Advance diet as tolerated. - Use Protonix (pantoprazole) 40 mg PO BID. - Await pathology results. - Observe patient's clinical course. Narrative 03/18/2025 8:47 AM EDT [facility] GI Patient Name: Jason Hannon Procedure Date: 03/18/2025 8:23 AM Date of : 1940 Age: 84 Room: ROOM 15 Gender: Male Note Status: Finalized Attending MD: Manuel Colorado MD, Procedure Date No Time: 03/18/2025 Procedure: Upper GI endoscopy Indications: Melena Providers: Manuel Colorado MD Referring MD: Manuel Colorado MD Medicines: Monitored Anesthesia Care Complications: No immediate complications. Estimated Blood Loss: Estimated blood loss: none. Procedure: Pre-Anesthesia Assessment: - ASA Grade Assessment: III - A patient with severe systemic disease. - After reviewing the risks and benefits, the patient was deemed in satisfactory condition to undergo the procedure. After obtaining informed consent, the endoscope was passed under direct vision. Throughout the procedure, the patient's blood pressure, pulse, and oxygen saturations were monitored continuously.The Endoscope was introduced through the mouth, and advanced to the third part of duodenum. The upper GI endoscopy was accomplished without difficulty. The patient tolerated the procedure well. Findings: The Z-line was regular and was found 42 cm from the incisors. The esophagus was normal. The entire examined stomach was normal. Several biopsies were obtained in the gastric antrum with cold forceps for histology. Estimated blood loss was minimal. Two non-obstructing non-bleeding cratered duodenal ulcers with no stigmata of bleeding were found in the second portion of the duodenum. The largest lesion was 6 mm in largest dimension. Segmental moderate mucosal changes characterized by congestion, erythema, erosion and friability (with contact bleeding) were found in the first portion of the duodenum. The exam of the duodenum was otherwise normal. Procedure Code(s): --- Professional --- 39664, Esophagogastroduodenoscopy, flexible, transoral; with biopsy, single or multiple Diagnosis Code(s): --- Professional --- K26.9, Duodenal ulcer, unspecified as acute or chronic, without hemorrhage or perforation K92.1, Melena (includes Hematochezia) CPT copyright 2020 [employer]. All rights reserved. The codes documented in this report are preliminary and upon dress marker review may be revised to meet current compliance requirements. Maunel Colorado MD 03/18/2025 8:47:31 AM This report has been signed electronically.Manuel Colorado MD Number of Addenda: 0 Note Initiated On: 03/18/2025 8:23 AM Scope In: Scope Out: Endoscopy Department at [facility] - [address] [place] [phone] Procedure Note Manuel Colorado MD - 03/18/2025 [facility] Patient Name: Jason Hannon Procedure Date: 03/18/2025 8:23 AM Date of : 1940 Age: 84 Room: ROOM 15 Gender: Male Note Status: Finalized Attending MD: Manuel Colorado MD, Procedure Date No Time: 03/18/2025 Procedure: Upper GI endoscopy Indications: Melena Providers: Manuel Colorado MD Referring MD: Manuel Colorado MD Medicines: Monitored Anesthesia Care Complications: No immediate complications. Estimated Blood Loss: Estimated blood loss: none. Procedure: Pre-Anesthesia Assessment: - ASA Grade Assessment: III - A patient with severe systemic disease. - After reviewing the risks and benefits, thepatient was deemed in satisfactory condition to undergo the procedure. After obtaining informed consent, the endoscope was passed under direct vision. Throughout theprocedure, the patient's blood pressure, pulse, and oxygen saturations were monitored continuously.TheEndoscope was introduced through the mouth, and advanced tothe third part of duodenum. The upper GI endoscopy was accomplished without difficulty. The patienttolerated the procedure well. Findings: The Z-line was regular and was found 42 cm from the incisors. The esophagus was normal. The entire examined stomach was normal. Several biopsies were obtained in the gastric antrum withcold forceps for histology. Estimated blood loss was minimal. Two non-obstructing non-bleeding cratered duodenal ulcers with no stigmata of bleeding were found inthe second portion of the duodenum. The largest lesionwas 6 mm in largest dimension. Segmental moderate mucosal changes characterized by congestion, erythema, erosion and friability (with contact bleeding) were found in the first portionof the duodenum. The exam of the duodenum was otherwise normal. Procedure Code(s): --- Professional --- 85365, Esophagogastroduodenoscopy, flexible, transoral; with biopsy, single or multiple Diagnosis Code(s): --- Professional --- K26.9, Duodenal ulcer, unspecified as acute or chronic, without hemorrhage or perforation K92.1, Melena (includes Hematochezia) CPT copyright 2020 [employer]. All rights reserved. The codes documented in this report are preliminary and upon dress marker reviewmay be revised to meet current compliance requirements. Manuel Colorado MD 03/18/2025 8:47:31 AM This report has been signed electronically.Manuel Colorado MD Number of Addenda: 0 Note Initiated On: 03/18/2025 8:23 AM Scope In: Scope Out: Endoscopy Department at [facility] - [address] [place] [phone] IMPRESSION: - Z-line regular, 42 cm from the incisors. - Normal esophagus. - Normal stomach. - Non-obstructing non-bleeding duodenal ulcers withno stigmata of bleeding. - Mucosal changes in the duodenum. - Several biopsies were obtained in the gastricantrum. Recommendation: - [facility] - Advance diet as tolerated. - Use Protonix (pantoprazole) 40 mg PO BID. - Await pathology results. - Observe patient's clinical course. us Manuel Colorado MD GI~PROCEDURE ORDERABLES Final Result * Tissue exam (03/18/2025 8:40 AM EDT) Final Diagnosis Gastric, Antrum, biopsies: Antral type gastric mucosa with reactive changes. No Helicobacter type gastritis identified. 03/21/2025 11:30 AM EDT [facility] at 1130 EDT Gross Description A. Gastric, Antrum, biopsies: Labeled antrum bi gastric ant . Received in formalin are three soft, galvan-pink tissue fragments ranging from 0.25 to 0.3 cm in greatest diameter, which are wrapped in paper and submitted in toto in one cassette, three pieces, multiple levels. TS 03/21/2025 11:30 AM EDT [facility] Disclaimer Unless otherwise specified, all tissue is 10% NB formalin fixed and paraffin embedded. 03/21/2025 11:30 AM EDT [facility] Tissue Pyloric antrum structure / Unknown 03/18/2025 8:40 AM EDT 03/18/2025 10:24 AM EDT Manuel Colorado MD LAB PATHOLOGY ORDERABLES Ursula l Result Performing Organization Address [facility]/ZIP Co de Phone Number [facility] [address] [place] [address], * (ABNORMAL) Vitamin B12 and folate (03/18/2025 5:32 AM EDT) Vitamin B-12 591 250 - 900 pcg/mL LAB CHEMISTRY METHOD 03/18/2025 1:30 PM EDT [facility] Folate >20.0(H) 2.8 - 17.0 ng/ml LAB CHEMISTRY METHOD 03/18/2025 1:30 PM EDT [facility] Blood Venous blood specimen / Unknown Venipuncture / Unknown 03/18/2025 5:32 AM EDT 03/18/2025 6:56 AM EDT Amanda KENDRICK LAB BLOOD ORDERABLES Final Result Performing Organization Address [facility] de Phone Number [facility] [address] [place] [address], * (ABNORMAL) Iron and TIBC (03/18/2025 5:32 AM EDT) Only the most recent of2 resultswithin the time period is included. Iron 117 50 - 160 mcg/dL LAB CHEMISTRY METHOD 03/18/2025 1:30 PM EDT [facility] Comment:Results verified by repeat testing TIBC 241(L) 250 - 450 mcg/dL LAB CHEMISTRY METHOD 03/18/2025 1:30 PM EDT [facility] Iron Saturation 49 20 - 50 % LAB CHEMISTRY METHOD 03/18/2025 1:30 PM EDT [facility] Blood Venous blood specimen / Unknown Venipuncture / Unknown 03/18/2025 5:32 AM EDT 03/18/2025 6:56 AM EDT Amanda KENDRICK LAB BLOOD ORDERABLES Final Result Performing Organization Address City/[facility]/ZIP Co de Phone Number [facility] [address] [place] [address], [place] [phone] * (ABNORMAL) Reticulocyte count (03/18/2025 5:32 AM EDT) Only the most recent of2 resultswithin the time period is included. Retic Ct Abs 0.050 0.030 - 0.090 M/mcL LAB HEMETOLOGY METHOD 03/18/2025 2:51 PM EDT [facility] Retic Ct Pct 1.1 0.7 - 1.7 % LAB HEMETOLOGY METHOD 03/18/2025 2:51 PM EDT [facility] Immature Retic Fract 17.6(H) 2.3 - 15.9 % LAB HEMETOLOGY METHOD 03/18/2025 2:51 PM EDT [facility] Reticulocyte Hemoglobin 27.6(L) >29.0 pcg LAB HEMETOLOGY METHOD 03/18/2025 2:51 PM EDT [facility] Blood Venous blood specimen / Unknown Venipuncture / Unknown 03/18/2025 5:32 AM EDT 03/18/2025 6:56 AM EDT us Amanda KENDRICK LAB BLOOD ORDERABLES Final Result Performing Organization Address [facility]/ZIP Co de Phone Number [facility] [address] [place] [address], [place] [phone] * Ferritin (03/18/2025 5:32 AM EDT) Only the most recent of2 resultswithin the time period is included. Ferritin 357 26 - 388 ng/mL LAB CHEMISTRY METHOD 03/18/2025 1:30 PM EDT [facility] Blood Venous blood specimen / Unknown Venipuncture / Unknown 03/18/2025 5:32 AM EDT 03/18/2025 6:56 AM EDT Amanda KENDRICK LAB BLOOD ORDERABLES Final Result [facility] [address] [place] [address], * Transfuse RBC, Leukoreduced (03/18/2025 2:09 AM EDT) Riana KENDRICK BLOOD TRANSFUSION ORDER JOHN Final Result * Prepare RBC: 1 Units, Leukoreduced (03/17/2025 11:03 PM EDT) Product Code [id number] 03/17/2025 11:57 PM EDT [facility] Unit Number [id number] 03/17/20 11:57 PM EDT [facility] Crossmatch Compatible 03/17/2025 11:20 PM EDT [facility] Dispense Status Transfused 03/17/2025 11:57 PM EDT [facility] Unit ABO Rh OPOS 03/17/2025 11:57 PM EDT [facility] Unit Expiration Date Time [id number] 03/17/2025 11:57 PM EDT [facility] Unit Blood Type 5100 03/17/2025 11:57 PM EDT [facility] Blood Venous blood specimen / Unknown 03/17/2025 11:03 PM EDT 03/17/2025 3:10 PM EDT us Riana KENDRICK BLOOD BANK PRODUCT ORDE RABLES Final Result [facility] [address] [place] [address], [place] [phone] * (ABNORMAL) Hemoglobin and hematocrit (03/17/2025 9:59 PM EDT) [facility] Hemoglobin 7.5(L) 13.5 - 17.5 g/dL LAB HEMETOLOGY METHOD 03/17/2025 10:26 PM EDT [facility] Hematocrit 23.9(L) 42.0 - 54.0 % LAB [facility] METHOD 03/17/2025 10:26 PM EDT [facility] Blood Venous blood specimen / Unknown Venipuncture / Unknown 03/17/2025 9:59 PM EDT 03/17/2025 10:15 PM EDT Riana KENDRICK LAB BLOOD ORDERABLES Fi nal Result Performing Organization Address [facility]/ZIP Co de Phone Number [facility] [address] [place] [address], [place] [phone] * (ABNORMAL) Urinalysis with reflex microscopic and culture (03/17/2025 8:18 PM EDT) [facility] Specific Victor Urine 1.016 1.003 - 1.030 LAB URINALYSIS - AUTOMATED METHOD 03/17/2025 9:30 PM EDT [facility] pH, Urine 5.5 5.0 - 8.0 pH LAB URINALYSIS - AUTOMATED METHOD 03/17/2025 9:30 PM EDT [facility] Leukocytes, Urine Trace(A) Negative LAB URINALYSIS - AUTOMATED METHOD 03/17/2025 9:30 PM EDT [facility] Nitrite, Urine Negative Negative LAB URINALYSIS - AUTOMATED METHOD 03/17/2025 9:30 PM [facility] Protein, Urine 100(A) <=Trace mg/dL LAB URINALYSIS - AUTOMATED METHOD 03/17/2025 9:30 PM [facility] Glucose, Urine Negative Negative mg/dL LAB URINALYSIS - AUTOMATED METHOD 03/17/2025 9:30 PM [facility] Ketones, Urine Negative Negative mg/dL LAB URINALYSIS - AUTOMATED METHOD 03/17/2025 9:30 PM [facility] Urobilinogen, Urine 0.2 0.2 - 1.0 mg/dL LAB URINALYSIS - AUTOMATED METHOD 03/17/2025 9:30 PM [facility] Bilirubin, Urine Negative Negative LAB URINALYSIS - AUTOMATED METHOD 03/17/2025 9:30 PM [facility] Blood, Urine Small(A) Negative LAB URINALYSIS - AUTOMATED METHOD 03/17/2025 9:30 PM [facility] RBC, Urine 9.8(H) 0 - 4 /HPF LAB URINALYSIS - AUTOMATED METHOD 03/17/2025 9:30 PM [facility] WBC, Urine 3.3 0 - 4 /HPF LAB URINALYSIS - AUTOMATED METHOD 03/17/2025 9:30 PM [facility] Squamous Epithelial, Urine 22 0 - 60 /LPF LAB URINALYSIS - AUTOMATED METHOD 03/17/2025 9:30 PM [facility] Bacteria, Urine Negative Negative /HPF LAB URINALYSIS - AUTOMATED METHOD 03/17/2025 9:30 PM [facility] Hyaline Casts, Urine 4.4(H) 0 - 3 /LPF LAB URINALYSIS - AUTOMATED METHOD 03/17/2025 9:30 PM [facility] Urine Urine specimen obtained by clean catch procedure / Unknown Non-blood Collection / Unknown 03/17/2025 8:18 PM EDT 03/17/2025 9:15 PM EDT Riana KENDRICK LAB URINE ORDERABLES Fi nal Result Performing Organization Address [facility] Co de Phone Number [facility] [address] [place] [address], [place] [phone] * Campos urine culture tube (03/17/2025 8:18 PM EDT) Extra Tube Hold for add-ons. 03/17/2025 11:01 PM EDT [facility] Comment:Auto resulted. Urine Urine specimen obtained by clean catch procedure / Unknown Non-blood Collection / Unknown 03/17/2025 8:18 PM EDT 03/17/2025 9:15 PM EDT Riana KENDRICK LAB URINE ORDERABLES Fi nal Result Performing Organization Address [facility] [place] Co de Phone Number [facility] [address] [place] [address], [place] [phone] * Culture urine (03/17/2025 8:18 PM EDT) Pathologist [facility] Culture, Urine No growth 03/18/2025 1:13 PM EDT [facility] Urine Urine specimen obtained by clean catch procedure / Unknown Non-blood Collection / Unknown 03/17/2025 8:18 PM EDT 03/17/2025 9:30 PM EDT Riana KENDRICK LAB MICROBIOLOGY - GENE RAL ORDERABLES Final Result Performing Organization Address [facility]/ZIP Co de Phone Number [facility] [address] [place] [address], [place] [phone] * CT Abdomen Pelvis wo Contrast (03/17/2025 5:43 PM EDT) Anatomical Region Laterality Modality Body Computed Tomogra phy 03/17/2025 6:07 PM EDT Impressions 03/17/2025 6:07 PM EDT Impression: 1. Perivesical stranding suggest cystitis, consider correlation with urinalysis. 2. Otherwise, no urolithiasis or hydroureteronephrosis. This document has been electronically signed by: Marco Antonio Aceves MD on 03/17/2025 18:07:29 Narrative 03/17/2025 6:07 PM EDT INDICATION: r/o obstructive uropathy Exam: Unenhanced CT abdomen and pelvis with multiplanar reformats. Comparison: None. Findings: CT abdomen: Lung bases reveal a 4 mm right lower lobe nodule (3; 10). Lung bases otherwise clear. Liver is free of gross focal lesions and ductal dilatation. Gallbladder is unremarkable. Spleen is unremarkable. Pancreas and adrenal glands appear unremarkable. Left kidney reveals an upper pole cyst measuring up to 4.2 cm (3; 42, 8 Hounsfield units). Right kidney reveals a lower pole cyst measuring up to 15 mm (3:87, 14 Hounsfield units). Kidneys otherwise unremarkable. No urolithiasis or hydroureteronephrosis. No free intraperitoneal fluid or retroperitoneal masses or adenopathy. Abdominal aorta is normal caliber with [id number] calcific athero sclerosis. Bowel loops reveal no abnormal wall thickening or distention. The appendix is unremarkable. Colonic diverticulosis is present, without CT evidence of diverticulitis. CT pelvis: Prostate gland is absent or diminutive. Urinary bladder is nondistended. Perivesical stranding suggest cystitis, consider correlation with urinalysis. No pelvic masses, fluid or adenopathy. Osseous structures reveal no destructive osseous lesions. Procedure Note Marco Antonio Aceves MD - 03/17/2025 INDICATION: r/o obstructive uropathy Exam: Unenhanced CT abdomen and pelvis with multiplanar reformats. Comparison: None. Findings: CT abdomen: Lung bases reveal a 4 mm right lower lobe nodule (3; 10).Lung bases otherwise clear. Liver is free of gross focal lesions and ductal dilatation. Gallbladder is unremarkable. Spleen is unremarkable. Pancreas and adrenal glands appear unremarkable. Left kidney reveals an upper pole cyst measuring up to 4.2 cm (3; 42, 8 Hounsfield units). Right kidney reveals a lower pole cyst measuring upto 15 mm (3:87, 14 Hounsfield units). Kidneys otherwise unremarkable. No urolithiasis or hydroureteronephrosis. No free intraperitoneal fluid or retroperitoneal masses or adenopathy. Abdominal aorta is normal caliber with [id number] calcific athero sclerosis. Bowel loops reveal no abnormal wall thickening or distention. Theappendix is unremarkable. Colonic diverticulosis is present, without CT evidenceof diverticulitis. CT pelvis: Prostate gland is absent or diminutive. Urinary bladder is nondistended. Perivesical stranding suggest cystitis, considercorrelation with urinalysis. No pelvic masses, fluid or adenopathy. Osseous structures reveal no destructive osseous lesions. IMPRESSION: Impression: 1. Perivesical stranding suggest cystitis, consider correlation with urinalysis. 2. Otherwise, no urolithiasis or hydroureteronephrosis. This document has been electronically signed by: Marco Antonio Aceves MD on 03/17/2025 18:07:[address] PROCEDURES Final Result * Type and Screen (03/17/2025 3:04 PM EDT) Pathologist [facility] ABO Group O 03/17/2025 4:00 PM EDT [facility] Rh Type Positive 03/17/2025 4:00 PM EDT [facility] Antibody Screen Negative 03/17/2025 4:00 PM EDT [facility] Blood Venous blood specimen / Unknown Venipuncture / Unknown 03/17/2025 3:04 PM EDT 03/17/2025 3:10 PM EDT Abbe Mcdonnell MD LAB BLOOD BANK TEST ORDERABL ES Final Result [facility] [address] [place] [address], [place] [phone] * Lactate, with Reflex (03/17/2025 1:49 PM EDT) LACTIC ACID 1.4 0.4 - 2.0 mmol/L LAB CHEMISTRY METHOD 03/17/2025 2:27 PM EDT [facility] Blood Venous blood specimen / Unknown Venipuncture / Unknown 03/17/2025 1:49 PM EDT 03/17/2025 1:57 PM EDT Abbe Mcdonnell MD LAB BLOOD ORDERABLES Final R esult [facility] [address] [place] [address], [place] [phone] * APTT (03/17/2025 1:49 PM EDT) [facility] aPTT 37.8 24.1 - 39.3 sec LAB COAGULATION METHOD 03/17/2025 2:17 PM EDT [facility] Blood Venous blood specimen / Unknown Venipuncture / Unknown 03/17/2025 1:49 PM EDT 03/17/2025 1:57 PM EDT Abbe Mcdonnell MD LAB BLOOD ORDERABLES Final R esult Performing Organization Address City/[facility]/ZIP Co de Phone Number [facility] [address] [place] [address], [place] [phone] * (ABNORMAL) Protime-INR (03/17/2025 1:49 PM EDT) Protime 17.2(H) 10.6 - 13.9 sec LAB COAGULATION METHOD 03/17/2025 2:16 PM EDT [facility] INR 1.4 LAB COAGULATION METHOD 03/17/2025 2:16 PM EDT [facility] Blood Venous blood specimen / Unknown Venipuncture / Unknown 03/17/2025 1:49 PM EDT 03/17/2025 1:57 PM EDT Abbe Mcdonnell MD LAB BLOOD ORDERABLES Final R esult Performing Organization Address [facility] Co de Phone Number [facility] [address] [place] [address], [place] [phone] * Lipase (03/17/2025 1:49 PM EDT) Lipase 43 13 - 75 unit/L LAB CHEMISTRY METHOD 03/17/2025 2:37 PM EDT [facility] Blood Venous blood specimen / Unknown Venipuncture / Unknown 03/17/2025 1:49 PM EDT 03/17/2025 1:57 PM EDT Abbe Mcdonnell MD LAB BLOOD ORDERABLES Final R esult Performing Organization Address [facility] Co de Phone Number [facility] [address] [place] [address], [place] [phone] * Lactate dehydrogenase (03/17/2025 1:49 PM EDT) Pathologist [facility] LDH 203 120 - 246 unit/L LAB CHEMISTRY METHOD 03/17/2025 9:02 PM EDT [facility] Blood Venous blood specimen / Unknown Venipuncture / Unknown 03/17/2025 1:49 PM EDT 03/17/2025 1:57 PM EDT Riana KENDRICK LAB BLOOD ORDERABLES Fi nal Result Performing Organization Address City/[facility]/ZIP Co de Phone Number [facility] [address] [place] [address], [place] [phone] * (ABNORMAL) Haptoglobin (03/17/2025 1:49 PM EDT) Haptoglobin 502(H) 16 - 200 mg/dL LAB CHEMISTRY METHOD 03/17/2025 9:02 PM EDT [facility] Blood Venous blood specimen / Unknown Venipuncture / Unknown 03/17/2025 1:49 PM EDT 03/17/2025 1:57 PM EDT Riana KENDRICK LAB BLOOD ORDERABLES Fi nal Result [facility] [address] [place] [address], * (ABNORMAL) Comprehensive Metabolic Panel (CMP) (03/17/2025 1:49 PM EDT) Pathologist [facility] Sodium 139 133 - 145 mmol/L LAB CHEMISTRY METHOD 03/17/2025 2:37 PM T [facility] Potassium 5.5 3.5 - 5.5 mmol/L LAB CHEMISTRY METHOD 03/17/2025 2:37 PM [facility] Chloride 107 96 - 110 mmol/L LAB CHEMISTRY METHOD 03/17/2025 2:37 PM T [facility] CO2 21 21 - 32 mmol/L LAB CHEMISTRY METHOD 03/17/2025 2:37 PM [facility] Anion Gap 11 3 - 11 LAB CHEMISTRY METHOD 03/17/2025 2:37 PM [facility] Glucose 142(H) 70 - 100 mg/dL LAB CHEMISTRY METHOD 03/17/2025 2:37 PM [facility] BUN 96(H) 5 - 25 mg/dL LAB CHEMISTRY METHOD 03/17/2025 2:37 PM [facility] Creatinine 4.13(H) 0.70 - 1.30 mg/dL LAB CHEMISTRY METHOD 03/17/2025 2:37 PM [facility] eGFR 14(L) >=60 mL/min/1. 73m2 LAB CHEMISTRY METHOD 03/17/2025 2:37 PM T [facility] Comment:Calculation based on the Chronic Kidney Disease Epidemiology Collaboration (CKD-EPI) equation refit without adjustment for race. BUN/Creatinine Ratio 23.2 LAB CHEMISTRY METHOD 03/17/2025 2:37 PM EDT [facility] Calcium 8.1(L) 8.5 - 10.5 mg/dL LAB CHEMISTRY METHOD 03/17/2025 2:37 PM EDT [facility] AST (SGOT) 19 10 - 42 unit/L LAB CHEMISTRY METHOD 03/17/2025 2:37 PM EDT [facility] ALT (SGPT) 22 10 - 60 unit/L LAB CHEMISTRY METHOD 03/17/2025 2:37 PM EDT [facility] Alkaline Phosphatase 74 42 - 121 unit/L LAB CHEMISTRY METHOD 03/17/2025 2:37 PM EDT [facility] Total Protein 5.9(L) 6.0 - 8.0 g/dL LAB CHEMISTRY METHOD 03/17/2025 2:37 PM EDT [facility] Albumin 2.5(L) 3.2 - 5.0 g/dL LAB CHEMISTRY METHOD 03/17/2025 2:37 PM EDT [facility] Total Bilirubin 0.3 0.0 - 1.4 mg/dL LAB CHEMISTRY METHOD 03/17/2025 2:37 PM EDT [facility] Blood Venous blood specimen / Unknown Venipuncture / Unknown 03/17/2025 1:49 PM EDT 03/17/2025 1:57 PM EDT us Abbe Mcdonnell MD LAB BLOOD ORDERABLES Final R esult [facility] [address] [place] [address], * [place] CRITICAL CARE 30-74 MINUTES (03/17/2025 1:02 PM EDT) Narrative Abbe Mcdonnell MD - 03/17/2025 1:02 PM EDT Abbe Mcdonnell MD 03/17/2025 3:47 PM Critical Care Performed by: Abbe Mcdonnell MD Authorized by: Abbe Mcdonnell MD Critical care provider statement: Critical care time (minutes): 36 Total face to face critical care time (minutes): 20 Critical care time was exclusive of: Separately billable procedures and treating other patients Critical care was necessary to treat or prevent imminent or life-threatening deterioration of the following conditions: Circulatory failure, shock and renal failure Critical care was time spent personally by me on the following activities: Development of treatment plan with patient or surrogate, discussions with consultants, evaluation of patient's response to treatment, ordering and review of laboratory studies, ordering and review of radiographic studies, re-evaluation of patient's condition, review of old charts, ordering and performing treatments and interventions, examination of patient and obtaining history from patient or surrogate Face to face critical care was time spent personally by me on the following activities: Examination of patient, re-evaluation of patient's condition, pulse oximetry, development of treatment plan with patient or surrogate and obtaining history from patient or surrogate I assumed direction of critical care for this patient from another provider in my specialty: no Care discussed with: admitting provider Comments: GI bleed with significant anemia and renal failure requiring IV fluids and IV pantoprazole, discussion with gastroenterology for consultation, discussion with via phone I risk of or deterioration us Abbe Mcdonnell MD IN CLINIC/BEDSIDE ORDERABLES Final Result * Lipid panel (11/18/2024 8:24 AM EDT) Pathologist [facility] Cholesterol Total 175 100 - 199 mg/dL [facility] Triglycerides 145 0 - 149 mg/dL [facility] HDL Cholesterol 59 >39 mg/dL [facility] VLDL Cholesterol Calculated 25 5 - 40 mg/dL [facility] LDL Chol Calc ([facility]) 91 0 - 99 mg/dL [facility] LDL Calc Comment Comment [facility] Comment:See LDL Comment if r eported. 11/18/2024 8:24 AM EDT 11/18/2024 Narrative [facility] - 11/19/2024 4:06 AM EDT Performed at: [facility] [id number] [employer] Manager: Rachana Norman MD, Phone: [phone] us Caleb Barton NP LAB BLOOD ORDERABLES Final Resul t [facility] 1 from Last 3 Months or Most Recently Relevant to Health Maintenance Additional Health Concerns Active Problems Noted Date Diagnosed Date Autogenerated Problem 03/17/2025 Insurance [facility] [place] [address] [employer] MEDICARE Advance Directives Documents on File Type Date Recorded Patient Continuous Drier Helper Expl anation Health Care Decision (hx) 03/02/2018 AD BRANCH DIRECTIVE Health Care Decision (hx) 03/02/2018 AD BRANCH DIRECTIVE Health Care Decision (hx) 03/02/2018 AD BRANCH DIRECTIVE Health Care Decision (hx) 03/02/2018 AD BRANCH DIRECTIVE Health Care Decision (hx) 03/02/2018 AD BRANCH DIRECTIVE Health Care Decision (hx) 03/02/2018 AD BRANCH DIRECTIVE Health Care Decision (hx) 03/02/2018 AD BRANCH DIRECTIVE * Full Code - Default (Latest Code Status on File) Date Activated Date Inactivated Comments 03/17/2025 3:45 PM 03/19/2025 4:02 PM This is or francine is used when code status has not been discussed with the patient, or code status is otherwise unknown/unconfirmed To update the patient's code status, place a code status order. Do not modify or discontinue any currently active code status orders. Care Teams [employer] Relationship Specialty Start Date End Date Em Tam MD [address] [place] [id number] PCP - General Internal Medicine 11/16/24
--- OUTSIDE RECORDS SUMMARY | 2025-05-24 12:14 | XMS_ITS | Encounter Summary ---
Author Organization [facility] Address [address] [place] [address] Care Team Providers Care Band Bias Machine Operator Name Role Phone Em Tam MD Primary Care Provider [phone] Encounter Details Date Type Department Care Team (Late st Contact Info) Description 02/22/2025 Lab Requisition [facility] - Main Lab [address] [facility] [place] [address] Irwin East PA [address] [facility] [address] [place] [id number] Gross hematuria Social History Tobacco Use Types Packs/Day Years [...] on file documented as of this encounter Plan of Treatment Upcoming Encounters Date Type Department Care Team (Late st Contact Info) Description 06/29/2025 9:10 AM EST Office Visit [facility] - [address] [facility] [address] [place] [address] Caleb Barton NP [address] [place] [phone] 11/21/2025 11:30 AM EDT Office Visit Gastroenterology - [address] [facility] [address] [place] [address] Zahraa Hameed PA [address] [facility] [address] [place] [address] documented as of this encounter Procedures Procedure Name Priority Date/Time Associated Diagnosis Comments NON-GYNECOLOGIC CYTOLOGY Routine 02/14/2025 12:00 AM EDT Gross hematuria documented in this encounter Results * Non-gynecologic cytology (02/14/2025 12:00 AM EDT) Final Diagnosis A. Urine, Voided, [id number]: Negative for high grade urothelial carcinoma. Results of UroVysion fluorescence in situ hybridization (FISH) testing: CEP3: Normal CEP7: Normal CEP17: Normal LSI 9p21: Normal Interpretation: Normal profile Controls stained appropriately. Note: The results are intended as a screening device and should be interpreted in association with other clinical and pathological findings. 03/15/2025 3:45 PM EDT [facility] at 1545 EDT Specimen A Adequacy Satisfactory for evaluation 03/15/2025 3:45 PM EDT [facility] Clinical Information Gross hematuria R31.0 Urine Cytology/FISH (now) 03/15/2025 3:45 PM T [facility] Gross Description A. Urine, Voided, [id number]: Received one ThinPrep slide for cytology and one ThinPrep slide for UroVysion FISH 03/15/2025 3:45 PM EDT [facility] Disclaimer Unless otherwise specified, all tissue is 10% NB formalin fixed and paraffin embedded. Technical pathology services provided by [facility] at [address], [place] [address] (CLIA #[id number]/Yessica Sampson MD, Rat Culturist) 03/15/2025 3:45 PM T [facility] Urine Urine specimen from urethra / Unknown 02/14/2025 02/22/2025 10:30 AM EDT [facility] CYTOLOGY ORDERABL ES Final Result [facility] [address] [place] [address], documented in this encounter Visit Diagnoses Diagnosis Gross hematuria documented in this encounter Additional Health Concerns Infection Onset Date Last Indicated Resolved Time C. difficile Rule-Out 03/17/2025 03/17/20252024 8:29 AM EDT Gastrointestinal Rule-Out 03/17/2025 03/17/2025 7:06 PM EST documented as of this encounter Care Teams Band Bias Machine Operator Relationship Specialty Start Date End Date Em Tam MD [address] [place] [id number] PCP - General Internal Medicine 11/16/24 documented as of this encounter
--- OUTSIDE RECORDS SUMMARY | 2025-05-24 12:14 | XMS_ITS | Patient Health Record ---
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 Name Role Phone Temo Whitley Primary Care Provider Martha Berman Unavailable [phone] Allergies Allergen (clinical drug ingredient) Drug/Non Drug Allergy documented on EMR Reaction Allergy Type Onset Date Status Iodinated contrast media (substance) Iodinated Diagnostic Agents Unknown Drug Allergy Active Results Component Value Reference Range Notes HEMOGLOBIN A1C (GLYCOHEMOGLO BIN) Reviewed date:01/12/2025 01:04:47 PM Interpretation: Performing Lab: Notes/Report: HEMOGLOBIN A1C % (HH) 6.2 HEMOGLOBIN A1C (GLYCOHEMOGLO BIN) Reviewed date:04/27/2025 09:01:22 AM Interpretation: Performing Lab: Notes/Report: HEMOGLOBIN A1C % (HH) 6.2 Reason For Referral No Information Medications Medication SIG (Take, Route, Frequency, Duration) Notes Start Date End Date Status Lisinopril 10 MG 1 tablet Orally Once a day; Duration: 30 day(s) Not-Taking amLODIPine Besylate 5 MG 1 tablet Orally Once a day Not-Taking Loprox Not-Taking Pantoprazole Sodium 40 MG Oral; Duration: 30 Days Active Clotrimazole-Betamethason e 1-0.05 % 1 application Externally Twice a day; Duration: 30 days Active Clotrimazole-Betamethason e 1-0.05 % 1 application Externally Twice a day; Duration: 30 days 02/01/2022 Not-Taking Extra Depth Orthopedic Shoes (1 Pair) with Customized Heat Molded Multidensity Innersoles (3 Pair) as directed Dx: NIDDM/Polyneuropathy (E11.42), Hammertoe Foot Deformity (M20.41,M20.42), Preulcerative Skin Lesion(s) (L85.1 06/11/2018 Not-Taking Atorvastatin Calcium Active Hydrocortisone 2.5 % as directed Externa lly to feet Twice a day; Duration: 30 days PRN Active zzzExtra Depth Orthopedic Shoes (1 Pair) with Customized Heat Molded Multidensity Innersoles (3 Pair) . . . Dx: NIDDM/Polyneuropathy (E11.42), Hammertoe Foot Deformity (M20.41,M20.42), Preulcerative Skin Lesion(s) (L85.1); Duration: . 07/28/2015 Not-Taking glyBURIDE 2.5 MG Orally Act clive Extra-Depth Diabetic Shoes with 3 Pair Custom heat-molded multi-density innersoles . for 1 year . Dx:hallux limitus and hammertoes; Duration: . 04/21/2014 Not-Taking Voltaren 1 % as directed Externally 01/30/2024 Active Metoprolol Tartrate 25 MG Oral; Duration: 90 Days Active Lisinopril Active Xarelto Active Diabetic Insoles Act clive Metformin & Diet Manage Prod Active Immunizations Vaccine Route Administration Date Status Comme nts Influenza Unknown 03/16/2015 Administered Influenza Unknown 04/02/2016 Administered Influenza Unknown 02/07/2017 Administered Influenza Unknown 03/01/2018 Administered Influenza Unknown 03/01/2019 Administered Influenza Unknown 02/18/2020 Administered Influenza Unknown 03/27/2023 Administered Influenza Unknown 03/02/2024 Administered Influenza Unknown 03/01/2025 Administered COVID-19 Pfizer BioNTech Vaccine Unknown 09/08/2021 Administered first dose:07/11/2020 second dose:08/01/2020 mgielqg91/03/22 Social History Tobacco Use: Social History Observation [...] Problem Acquired hammer toe of right foot (2130235898757057 ) Other hammer toe(s) (acquired), right foot (M20.41) Active confirmed Problem Acquired hammer toe of left foot (3221086996291920 ) Other hammer toe(s) (acquired), left foot (M20.42) Active confirmed Problem Polyneuropathy due to type 2 diabetes mellitus (190147693) Type 2 diabetes mellitus with diabetic polyneuropathy (E11.42) Active confirmed Vital Signs Blood pressure diastolic 80 mm Hg 04/27/2025 Height 5 ft 6 in in 04/27/2025 Blood pressure systolic 121 mm Hg 04/27/2025 Weight 200 lbs 04/27/2025 BMI 32.28 kg/m2 04/27/2025 Procedures Procedure Date Ordered Date Performed Result Body Sit e 45189-DJMDNFS NAIL, 6 OR MORE 07/06/2024 N/A 05920-ZYKR SKIN LESIONS, OVER 4 07/06/2024 N/A 80200-ABPUVDR NAIL, 6 OR MORE 10/12/2024 N/A 48526-BCIX SKIN LESIONS, OVER 4 10/12/2024 N/A 84199-XEYMXQV NAIL, 6 OR MORE 01/12/2025 N/A 13648-PIUK SKIN LESIONS, OVER 4 01/12/2025 N/A 04089-SLCEIDT NAIL, 6 OR MORE 04/27/2025 N/A 90602-HCBA SKIN LESIONS, OVER 4 04/27/2025 N/A Encounters Encounter Location Date Provider Diagnosis [facility] [address] [address] 07/06/2024 Martha Hernandez Type 2 diabetes mellitus with diabetic polyneuropathy E11.42 ; Tinea unguium B35.1 and Tinea pedis of both feet B35.3 [facility] [address] [address] 10/12/2024 Martha Black Type 2 diabetes mellitus with diabetic polyneuropathy E11.42 ; Tinea unguium B35.1 and Tinea pedis of both feet B35.[address] [address] 01/12/2025 Martha Hernandez Type 2 diabetes mellitus with diabetic polyneuropathy E11.42 ; Other hammer toe(s) (acquired), right foot M20.41 ; Tinea unguium B35.1 ; Tinea pedis of both feet B35.3 and Other hammer toe(s) (acquired), left foot M20.[address] [address] 04/27/2025 Martha Hernandez Type 2 diabetes mellitus with diabetic polyneuropathy E11.42 and Tinea unguium B35.[address] [address] 05/28/2024 Martha Black Tinea pedis of both feet B35.[address] [address] 07/16/2024 Martha Black [address] [address] 09/09/2024 Martha Black Tinea pedis of both feet B35.[address] [address] 01/12/2025 Martha Black Assessments Encounter Date Diagnosis (ICD Code) Assessment Notes Treatment Notes Treatment Clinical Notes Section Notes 05/28/2024 Tinea pedis of both feet (ICD-10 [...] mellitus with diabetic polyneuropathy (ICD-10 - E11.42) 04/27/2025 Tinea unguium (ICD-10 - B35.1) 04/27/2025 Type 2 diabetes mellitus with diabetic polyneuropathy [...] toe(s) (acquired), left foot (ICD-10 - M20.42) 04/27/2025 Other Plan Of Treatment Pending Test Test Name Order Date 38702-FAQFKKF NAIL, 6 OR MORE 03/26/2011 00194-TUBLCWA NAIL, 6 OR MORE 07/18/2011 24428-ZIBKNZG NAIL, 6 OR MORE 09/27/2011 52911-XDMJBXS NAIL, 6 OR MORE 12/20/2011 99601-SVYURKH NAIL, 6 OR MORE 02/28/2012 46190-JKBMUDJ NAIL, 6 OR MORE 06/26/2012 05073-CWCVEJG NAIL, 6 OR MORE 09/04/2012 39726-GNOSGGQ NAIL, 6 OR MORE 11/19/2012 45903-YTEICOI NAIL, 6 OR MORE 01/26/2013 16751-INBCWRA NAIL, 6 OR MORE 04/22/2013 73129-KFZAVSG NAIL, 6 OR MORE 07/22/2013 16223-QZZBYOC NAIL, 6 OR MORE 10/19/2013 11851-VQXPPIQ NAIL, 6 OR MORE 12/31/2013 20281-QZQVRYV NAIL, 6 OR MORE 04/21/2014 93859-IGUVBSY NAIL, 6 OR MORE 12/27/2014 40489-HHFUQJV NAIL, 6 OR MORE 03/30/2015 53388-WSLBZTY NAIL, 6 OR MORE 07/28/2015 55686-QSJXRFG NAIL, 6 OR MORE 11/14/2015 90797-YQKMTON NAIL, 6 OR MORE 02/27/2016 99377-MILTCHT NAIL, 6 OR MORE 06/04/2016 63982-YSZRAOM NAIL, 6 OR MORE 09/04/2016 93745-NIXJNZS NAIL, 6 OR MORE 11/27/2016 54077-ZTNDBKY NAIL, 6 OR MORE 02/26/2017 25510-PHCEZAO NAIL, 6 OR MORE 06/04/2017 21752-GIRFKQS NAIL, 6 OR MORE 09/03/2017 03149-TUGRDGR NAIL, 6 OR MORE 12/26/2017 05253-MDRJBOI NAIL, 6 OR MORE 09/11/2018 39218-IJBWCOJ NAIL, 6 OR MORE 12/16/2018 90637-NMQLMRO NAIL, 6 OR MORE 03/19/2019 58399-FUXLTGI NAIL, 6 OR MORE 06/22/2019 61246-YJUTUAW NAIL, 6 OR MORE 09/21/2019 83395-KOBUSUI NAIL, 6 OR MORE 12/15/2019 17492-PXHNOAM NAIL, 6 OR MORE 03/24/2020 62935-UIHRKJQ NAIL, 6 OR MORE 06/30/2020 45279-TJFCXEH NAIL, 6 OR MORE 09/29/2020 68045-CYMTPGL NAIL, 6 OR MORE 12/29/2020 28961-UQNAHVP NAIL, 6 OR MORE 03/30/2021 30567-VPHXCGW NAIL, 6 OR MORE 07/10/2021 47351-EFETHOU NAIL, 6 OR MORE 10/16/2021 59743-MLNOAJI NAIL, 6 OR MORE 01/15/2022 28907-QZTTRQA NAIL, 6 OR MORE 04/16/2022 87736-NPBZCFA NAIL, 6 OR MORE 08/02/2022 74890-KIYJROA NAIL, 6 OR MORE 11/08/2022 02517-KKWBQBA NAIL, 6 OR MORE 02/14/2023 65681-ZULBFJH NAIL, 6 OR MORE 05/09/2023 59009-KDPWBTD NAIL, 6 OR MORE 08/01/2023 36546-HQTPIMD NAIL, 6 OR MORE 10/31/2023 35177-WVDJXOJ NAIL, 6 OR MORE 01/30/2024 29873-DWBNUGU NAIL, 6 OR MORE 07/06/2024 88912-CRSFLRQ NAIL, 6 OR MORE 10/12/2024 86558-CLUMRBH NAIL, 6 OR MORE 04/23/2024 50615-STKFYKW NAIL, 6 OR MORE 01/12/2025 98970-IPMDGMR NAIL, 6 OR MORE 04/27/2025 82102-Ltorfbee Plate 11/27/2016 44094-Arzupqcn Plate 12/27/2014 46415-Hjciydse Plate 04/21/2014 55078-Poiucljy Plate 12/31/2013 49309-Hzcwvlqz Plate 10/19/2013 92268-Svddvsbx Plate 07/22/2013 57689-ZBIW SKIN LESIONS, OVER 4 10/20/19 14 82527-RINI SKIN LESIONS, OVER 4 07/22/19 14 11062-YNAN SKIN LESIONS, OVER 4 04/22/20 13 86514-IKPB SKIN LESIONS, OVER 4 01/01/20 14 41585-KRMY SKIN LESIONS, OVER 4 04/21/20 14 93380-BUXV SKIN LESIONS, OVER 4 12/28/19 15 56578-DUQC SKIN LESIONS, OVER 4 03/30/20 15 65040-YCCH SKIN LESIONS, OVER 4 01/27/20 13 61231-NMMF SKIN LESIONS, OVER 4 11/20/19 13 94063-XFVC SKIN LESIONS, OVER 4 09/05/19 13 67740-GJUA SKIN LESIONS, OVER 4 06/26/19 13 60523-OFYW SKIN LESIONS, OVER 4 02/28/20 12 37692-YKND SKIN LESIONS, OVER 4 12/20/19 12 39446-HBQQ SKIN LESIONS, OVER 4 09/27/19 12 30767-WOOS SKIN LESIONS, OVER 4 03/24/20 20 90391-HOEY SKIN LESIONS, OVER 4 12/15/19 20 47456-FXIM SKIN LESIONS, OVER 4 09/21/19 20 29851-CSCB SKIN LESIONS, OVER 4 06/22/19 20 53062-AOAP SKIN LESIONS, OVER 4 03/19/20 19 41355-QZDY SKIN LESIONS, OVER 4 12/17/19 19 53038-YBWD SKIN LESIONS, OVER 4 09/12/19 19 48291-KFTI SKIN LESIONS, OVER 4 12/27/19 18 42089-WXFK SKIN LESIONS, OVER 4 09/04/19 18 48539-NZMY SKIN LESIONS, OVER 4 06/04/19 18 96716-OTIU SKIN LESIONS, OVER 4 02/27/20 17 29901-OLOG SKIN LESIONS, OVER 4 09/05/19 17 45279-YFPC SKIN LESIONS, OVER 4 11/28/19 17 26964-DXSJ SKIN LESIONS, OVER 4 06/04/19 17 75293-WFRG SKIN LESIONS, OVER 4 02/27/20 16 81193-QWVC SKIN LESIONS, OVER 4 11/14/19 16 17305-FIGK SKIN LESIONS, OVER 4 07/28/19 16 77107-ZKIH SKIN LESIONS, OVER 4 04/27/20 25 44051-MLMV SKIN LESIONS, OVER 4 07/06/19 25 98184-SKXF SKIN LESIONS, OVER 4 10/13/19 15152-SDRR SKIN LESIONS, OVER 4 01/13/20 29798-DSJV SKIN LESIONS, OVER 4 04/23/20 24 68089-THNE SKIN LESIONS, OVER 4 01/30/20 24 02541-XATS SKIN LESIONS, OVER 4 10/31/19 24 02414-VBWQ SKIN LESIONS, OVER 4 08/01/19 24 64891-DOUK SKIN LESIONS, OVER 4 05/09/20 23 78998-NAUA SKIN LESIONS, OVER 4 02/15/20 23 54629-SFZY SKIN LESIONS, OVER 4 11/09/19 23 37291-YSDC SKIN LESIONS, OVER 4 08/03/19 23 65593-UZRW SKIN LESIONS, OVER 4 04/16/20 22 56633-FEMM SKIN LESIONS, OVER 4 01/16/20 22 55608-OEFC SKIN LESIONS, OVER 4 10/17/19 22 77294-CNFN SKIN LESIONS, OVER 4 07/10/19 22 67858-RJIY SKIN LESIONS, OVER 4 03/30/20 21 55487-NGXH SKIN LESIONS, OVER 4 12/30/19 21 01527-XAEW SKIN LESIONS, OVER 4 09/30/19 21 54205-QSMV SKIN LESIONS, OVER 4 06/30/19 21 35348-FIBM SKIN LESION 07/18/2011 30044- Removal of Foreign Body, Subcut 1 07/25/2010 Next Appt Details Provider Name:Martha Hernandez , 07/27/2025 02:00:00 PM, [address] [facility], [place], [address], Insurance Providers Payer Name Payer Address Payer Phone Subscriber Number Group Number Insured Name Patient Relationship to Insured Coverage Start Date Coverage End Date [employer] Medicare-[id number] [address] [address] [place] [address] [id number] Anastacio Hannon Self - patient is the [...] left lower extremity w ith inflammation I83.12 Stomach ulcer Surgical History Surgery Date(Month/Year) knee surgery Cataract right eye 03/09/2012 cataract left eye 04/2012 prostatectomy 03/2013 right knee tendon surgery 07/2013 carpal tunnel surgery 03/2022 carpal tunnel, right hand 09/23/22 Hospitalization History Reason Date(Month/Year) [place] [facility] [place]05/2014 [facility]Ul[facility] in stomach 03/17/25 [facility] septic shock 03/2018
== END 2025-05-24 12:10 | disposition home or self-care (01) ==
PROVIDERS: Visit Provider Physician Assistant
DX: B34.9 Viral infection, unspecified (principal)